=== PATIENT | female | born 2000 | race Caucasian/White ===

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

== ENCOUNTER 2022-04-30 12:34 | Emergency (ER) | payer MEDICAID, SELFPAY ==
[2022-04-30 12:50] VITALS: BP 139/54; PULSE 83; RESP 18; TEMP 36.6; O2SAT 98
[2022-04-30 13:51] LABS: Bilirubin Negative (Negative); Blood Trace-intact (Negative); Clarity Sl Cloudy (Clear); Glucose Negative (Negative); Ketones 15 mg/dL (Negative); Leukocyte Esterase Moderate (Negative); Nitrite Negative (Negative); Specific Gravity >= 1.030 (1.005-1.025); Urobilinogen 0.2 EU/dL (Up TO 0.2); pH 5.5 (5-8)
[2022-04-30 14:02] LABS: Bacteria Moderate HPF (Negative); C & S Indicated? No/Sq. Contamination; Casts 0-2 Hyaline LPF (Negative); Crystals Negative HPF (Negative); Epithelial Cells Many HPF (Negative); Mucus Negative (Negative); RBC 0-2 HPF (0-2); WBC >50 HPF (0-5)
[2022-04-30 14:13] LABS: Abs Immature Grans 0.08 10^3/uL (0.0-0.06); Absolute Basophil Count 0.05 10^3/uL (0.0-0.2); Absolute Eosinophil Count 0.08 10^3/uL (0.0-0.7); Basophils % 0.3; Eosinophils % 0.5; HCT 36.2 % (36.0-46.0); Immature Grans % 0.5; Lymphocytes % 10.4; MCH 27.6 pg (27.0-33.0); MCHC 33.1 % (32.0-36.0); MCV 83 fL (80-95); MPV 11.5 fL (8.0-11.0); Monocytes % 4.5; Neutrophils % 83.8; Platelet Count 238 10^3/uL (130-400); RBC 4.35 10^6/uL (3.93-5.22); RDW 13.2 % (11.7-14.6); RDW-SD 39.8 fL; WBC 15.23 10^3/uL (4.4-10.8)
[2022-04-30 14:15] LABS: Absolute Lymphocyte Count 1.58 10^3/uL (1.2-3.4); Absolute Monocyte Count 0.69 10^3/uL (0.1-0.8); Absolute Neutrophil Count 12.76 10^3/uL (1.2-6.7)
--- NOTE | 2022-04-30 14:17 | W.ED.GENAD ---
Discharge Plan Discharge Details Chief Complaint: Abd Prob Primary Care Provider: Unknown,Unknown ED Provider: Harry Clemens Home Meds and New Rx's Prescriptions: No Action No Known Home Meds Medical Decision Making 21-year-old female, denies significant past medical history, approximate 11 weeks, presents to the ER for 2-day history of right lower quadrant pain worsening nausea and vomiting. Clinically she appears well, nontoxic, is afebrile. Patient saw her distribution a class lineman today and was told that her appears to be going well based upon the appointment today and recommended getting the right lower quadrant pain evaluated elsewhere. Plan to obtain IV access, obtain routine screening laboratory values, quantitative hCG. Laboratory values reveal leukocytosis of 15.23, leukocytosis can certainly be present in but obviously cannot rule out infectious process. Sodium 135, potassium 3.7, creatinine 0.9 with a GFR of 94.44. ALT 91, LFTs otherwise unremarkable hCG quantitative pending Urinalysis reveals 15 ketones, will provide IV fluid. Negative nitrate. Leuk esterase moderate. Greater than 50 white cells. Many epithelial cells, moderate bacteria. Culture not indicated because of contamination. Plan to obtain repeat urine sample. Concern for contamination versus infection. Plan to obtain an ultrasound OB first trimester as well as a right lower quadrant for further evaluation of possible appendicitis. hCG is 81,387 which would be appropriate for her estimated 11 weeks. At the time of signout to GAMALIEL Sexton, awaiting repeat urinalysis, OB ultrasound first trimester, ultrasound right lower quadrant for right lower quadrant pain, nausea, vomiting, leukocytosis. This documentation was generated using Re[employer]ise dictation system, please disregard any oddities of phrase or misspellings. Lab Data Lab results reviewed: Yes I reviewed the patient's lab results. Labs: Laboratory Tests Range/Units 04/30/22 04/30/22 04/30/22 13:35 13:50 13:50 WBC (4.4-10.8) 10^3/uL 15.23 H RBC (3.93-5.22) 10^6/uL 4.35 Hgb (11.2-15.7) g/dL 12.0 Hct (36.0-46.0) % 36.2 MCV (80-95) fL 83 MCH (27.0-33.0) pg 27.6 MCHC (32.0-36.0) % 33.1 RDW (11.7-14.6) % 13.2 Plt Count (130-400) 10^3/uL 238 MPV (8.0-11.0) fL 11.5 H Immature Gran % 0.5 Neutrophils % 83.8 Lymphocytes % 10.4 Monocytes % 4.5 Eosinophils % 0.5 Basophils % 0.3 Nucleated RBC % (0.0-0.3) % 0.0 Absolute Neutrophils (1.2-6.7) 10^3/uL 12.76 H Absolute Lymphocytes (1.2-3.4) 10^3/uL 1.58 Absolute Monocytes (0.1-0.8) 10^3/uL 0.69 Absolute Eosinophils (0.0-0.7) 10^3/uL 0.08 Absolute Basophils (0.0-0.2) 10^3/uL 0.05 Sodium (136-145) mmol/L 135 L Potassium (3.5-5.1) mmol/L 3.7 Chloride (98-107) mmol/L 99 Carbon Dioxide (21.0-32.0) mmol/L 24.7 Anion Gap (3-11) mmol/L 11.3 H BUN (7-18) mg/dL 9 Creatinine (0.55-1.02) mg/dL 0.9 Est GFR (CKD-EPI 2020) (mL/min/1.73m2) 94.44 Glucose (74-106) mg/dL 86 Calcium (8.5-10.1) mg/dL 9.5 Total Bilirubin (0.2-1.0) mg/dL 0.3 AST (15-37) U/L 31 ALT (14-59) U/L 91 H Alkaline Phosphatase (46-116) U/L 57 Total Protein (6.4-8.2) g/dL 8.0 Albumin (3.4-5.0) g/dL 3.8 Lipase (73-393) U/L 138 Beta HCG, Quant (1-3) mIU/mL 09560 H Urine Color (Yellow) Yellow Urine Clarity (Clear) Sl Cloudy Urine pH (5-8) 5.5 Ur Specific [place] (1.005-1.025) >= 1.030 H Urine Protein (Negative) mg/dL 30 H Urine Ketones (Negative) mg/dL 15 H Urine Blood (Negative) Trace-intact H Urine Nitrite (Negative) Negative Urine Bilirubin (Negative) Negative Urine Urobilinogen (Up TO 0.2) EU/dL 0.2 Ur Leukocyte Esterase (Negative) Moderate H Urine RBC (0-2) HPF 0-2 Urine WBC (0-5) HPF >50 H Ur Epithelial Cells (Negative) HPF Many Urine Crystals (Negative) HPF Negative Urine Bacteria (Negative) HPF Moderate Urine Casts (Negative) LPF 0-2 Hyaline Urine Mucus (Negative) Negative Ur Culture Indicated? No/Sq. Contamination Urine Glucose (Negative) mg/dL Negative HPI General Mode of arrival: ambulatory. Date/Time Provider Initiated Documentation: 04/30/22 13:46. Limitations to Documentation: no limitations. Information obtained by: patient and family. HPI Narrative: This is a 21-year-old female, denies significant past medical history or prior abdominal surgeries, at 11 weeks presents reporting a 2-day history of right lower quadrant pain and slight increased nausea and vomiting. 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 Reports her pain is moderate, nothing makes it worse or better. She reports baseline nausea, vomiting, low back pain in , reports her back pain is unchanged but may be slightly worse nausea and vomiting. Denies fever, chest pain, shortness of breath, vaginal bleeding or discharge, dysuria, hematuria, frequency, diarrhea or constipation. Related Data Home Medications Medication Instructions Recorded Confirmed Unknown [No Known Home Meds] 04/30/22 04/30/22 Allergies Allergy/AdvReac Type Severity Reaction Status Date / Time No Known Allergies Allergy Unverified 04/30/22 15:09 General Stated Complaint: Abd Prob MU: 3 Review of Systems Constitutional Constitutional: Denies fever(s) and Denies weakness Cardiovascular Cardiovascular: Denies chest pain and Denies dyspnea Respiratory Respiratory: Denies cough and Denies dyspnea Gastrointestinal Gastrointestinal: Reports abdominal pain, Denies constipation, Denies diarrhea, Reports nausea and Reports vomiting Genitourinary Genitourinary: Denies hematuria, Denies dysuria and Denies vaginal discharge Musculoskeletal Musculoskeletal: Reports back pain Integumentary/Breasts Skin/Breast: Denies rash Neurologic Neurologic: Denies weakness [facility] Social History Smoking/Tobacco Use Status: Never Smoking risk assessment performed?: Yes Alcohol Intake: never Substance use type: does not use Do you feel safe at home: Yes Do you feel safe in your relationship?: Yes Exam Const General: cooperative, healthy appearing, comfortable and no acute distress Orientation: alert and awake [facility] Head: normal to inspection, normocephalic and atraumatic Face and sinus: normal facial exam Mouth: moist mucous membranes Eyes Conjunctivae: conjunctivae normal Neck Neck: normal visual inspection, full ROM, no meningeal signs, trachea midline and supple Resp Effort & Inspection: normal respiratory effort and able to speak in complete sentences Auscultation: clear to auscultation bilaterally Cardio Rate: regular rate Rhythm: regular rhythm GI Palpation: soft, not firm, no guarding, no pulsatile masses and tender in the RLQ; not at McBurney's point and with no rebound tenderness Other: Consistence with approximate 11 weeks Back/Spine/Pelvis Back: no CVA tenderness and No back tenderness Skin General skin exam: no rashes or lesions noted Neuro General: patient alert, patient awake, moves all extremities and no focal motor deficits Cognition: normal cognition Speech: speech normal Gait: normal gait Sensory Exam: no sensory deficits noted Extrem General: normal to inspection, full ROM and capillary refill normal Psych Appearance: grossly normal Mental Status: mental status grossly normal Course Vital Signs Vital signs: Vital Signs Temperature 36.6 C 04/30/22 12:50 Pulse 83 04/30/22 12:50 Respiratory Rate 18 04/30/22 12:50 Blood Pressure 139/54 L 04/30/22 12:50 Pulse Oximetry 98 04/30/22 12:50 Temperature 36.6 C 04/30/22 12:50 Temperature Source Oral 04/30/22 12:50 Pulse 83 04/30/22 12:50 Respiratory Rate 18 04/30/22 12:50 Respiratory Effort 04/30/22 12:57 Blood Pressure 139/54 L 04/30/22 12:50 Blood Pressure Position Sitting 04/30/22 12:50 Pulse Oximetry 98 04/30/22 12:50 Oxygen Delivery Method Room Air 04/30/22 12:50 Oxygen Flow Rate 0 04/30/22 12:50 Pain Level 5 04/30/22 12:50 Lab/Test Results Lab/Test Results: Laboratory Tests Range/Units 04/30/22 04/30/22 13:35 13:50 WBC (4.4-10.8) 10^3/uL 15.23 H RBC (3.93-5.22) 10^6/uL 4.35 Hgb (11.2-15.7) g/dL 12.0 Hct (36.0-46.0) % 36.2 MCV (80-95) fL 83 MCH (27.0-33.0) pg 27.6 MCHC (32.0-36.0) % 33.1 RDW (11.7-14.6) % 13.2 Plt Count (130-400) 10^3/uL 238 MPV (8.0-11.0) fL 11.5 H Immature Gran % 0.5 Neutrophils % 83.8 Lymphocytes % 10.4 Monocytes % 4.5 Eosinophils % 0.5 Basophils % 0.3 Nucleated RBC % (0.0-0.3) % 0.0 Absolute Neutrophils (1.2-6.7) 10^3/uL 12.76 H Absolute Lymphocytes (1.2-3.4) 10^3/uL 1.58 Absolute Monocytes (0.1-0.8) 10^3/uL 0.69 Absolute Eosinophils (0.0-0.7) 10^3/uL 0.08 Absolute Basophils (0.0-0.2) 10^3/uL 0.05 Urine Color (Yellow) Yellow Urine Clarity (Clear) Sl Cloudy Urine pH (5-8) 5.5 Ur Specific [place] (1.005-1.025) >= 1.030 H Urine Protein (Negative) mg/dL 30 H Urine Ketones (Negative) mg/dL 15 H Urine Blood (Negative) Trace-intact H Urine Nitrite (Negative) Negative Urine Bilirubin (Negative) Negative Urine Urobilinogen (Up TO 0.2) EU/dL 0.2 Ur Leukocyte Esterase (Negative) Moderate H Urine RBC (0-2) HPF 0-2 Urine WBC (0-5) HPF >50 H Ur Epithelial Cells (Negative) HPF Many Urine Crystals (Negative) HPF Negative Urine Bacteria (Negative) HPF Moderate Urine Casts (Negative) LPF 0-2 Hyaline Urine Mucus (Negative) Negative Ur Culture Indicated? No/Sq. Contamination Urine Glucose (Negative) mg/dL Negative
[2022-04-30 14:40] LABS: ALT 91 U/L (14-59); AST 31 U/L (15-37); Albumin 3.8 g/dL (3.4-5.0); Alkaline Phosphatase 57 U/L (46-116); Anion Gap 11.3 mmol/L (3-11); BUN 9 mg/dL (7-18); Bilirubin, Total 0.3 mg/dL (0.2-1.0); CO2 24.7 mmol/L (21.0-32.0); CREATININE 0.9 mg/dL (0.55-1.02); Calcium 9.5 mg/dL (8.5-10.1); Chloride 99 mmol/L (98-107); Estimated GFR 94.44 (mL/min/1.73m2); Glucose 86 mg/dL (74-106); Lipase 138 U/L (73-393); Potassium 3.7 mmol/L (3.5-5.1); Sodium 135 mmol/L (136-145)
--- NOTE | 2022-04-30 14:45 | DI.US_ITS ---
Exam(s) US ABDOMEN LIMITED EXAM: US ABDOMEN LIMITED CLINICAL HISTORY: RLQ pain TECHNIQUE: Limited ultrasound abdomen performed using standard protocol. COMPARISON: No exams were available for comparison FINDINGS: The right lower quadrant was evaluated sonographically. No sonographic evidence of an appendicitis i s seen. No free fluid is seen in the right lower quadrant. IMPRESSION: No sonographic evidence of an appendicitis. DATA REPOSITORY:
--- NOTE | 2022-04-30 14:45 | DI.US_ITS ---
Exam(s) US OB 1ST TRIMESTER EXAM: US OB 1ST TRIMESTER CLINICAL HISTORY: abd pain. COMPARISON: No exams were available for comparison TECHNIQUE: Transabdominal first trimester obstetrical ultrasound performed. FINDINGS: There is a single intrauterine gestation. Estimated gestational age based on crown-rump length is 11 weeks 6 days. heart rate is 171 beats per minute. movement was detected. Estimated da te of delivery by ultrasound is 11/13/2022. There is a small subchorionic hemorrhage seen measuring 2 .0 x 1.9 x 1.1 cm. Pelvic Measurments Uterus: 10 x 7.7 x 8.2 cm Rt Ovary: 3.3 x 2.1 x 2.3 cm Lt Ovary: 3.3 x 1.7 x 2.5 cm IMPRESSION: Single living intrauterine gestation. DATA REPOSITORY:
[2022-04-30] MEDS: Normal Saline 1,000 ML 1000 ML IV (15:04)
[2022-04-30 15:46] VITALS: BP 102/63; PULSE 80; RESP 15; O2SAT 98
[2022-04-30 16:32] LABS: Bilirubin Negative (Negative); Blood Negative (Negative); Clarity Sl Cloudy (Clear); Glucose Negative (Negative); Ketones 80 mg/dL (Negative); Leukocyte Esterase Trace (Negative); Nitrite Negative (Negative); Urobilinogen 0.2 EU/dL (Up TO 0.2); pH 5.5 (5-8)
--- NOTE | 2022-04-30 16:39 | W.EDPROG ---
Date of service: 04/30/22 Time of Service: 16:39 Medical Decision Making Care assumed from provider (MARY To) Please see their initial HPI, PE, and documentation. Discussed patient details and case and pending workup and disposition. Patient is hemodynamically stable, and alert and oriented. Discussed results of ultrasound with patient and family who verbalized understanding. At this time we are awaiting repeat urinalysis. Repeat urinalysis shows trace leukocytes with many epithelial squamous contamination however I will place patient on antibiotics for possible probable UTI to treat empirically. Urine culture added onto lab. Discussed home care and strict return instructions with patient and family they verbalized understanding. Patient hemodynamically stable. This text was generated using Department of Health and Human Servicesation system, please disregard any oddities of phrase or misspellings. Imaging Data Radiologic Study: Imaging: Ultrasound Radiologist's impression: EXAM:? US OB 1ST TRIMESTER CLINICAL HISTORY: ? abd pain.? COMPARISON:? No exams were available for comparison? TECHNIQUE:? Transabdominal first trimester obstetrical ultrasound performed. FINDINGS: There is a single intrauterine gestation.? Estimated gestational age based on crown-rump length is 11 weeks 6 days.? heart rate is 171 beats per minute.? movement was detected.? Estimated date of delivery by ultrasound is 11/13/2022.? There is a small subchorionic hemorrhage seen measuring 2.0 x 1.9 x 1.1 cm. Pelvic Measurments Uterus: 10 x 7.7 x 8.2 cm Rt Ovary: 3.3 x 2.1 x 2.3 cm Lt Ovary: 3.3 x 1.7 x 2.5 cm IMPRESSION: Single living intrauterine gestation.? Radiologic Study #2: Imaging: Ultrasound Radiologist's impression: EXAM:? US ABDOMEN LIMITED CLINICAL HISTORY:? RLQ pain TECHNIQUE:? Limited ultrasound abdomen performed using standard protocol. COMPARISON:? No exams were available for comparison FINDINGS: The right lower quadrant was evaluated sonographically.? No sonographic evidence of an appendicitis is seen.? No free fluid is seen in the right lower quadrant. IMPRESSION: No sonographic evidence of an appendicitis.? Sign Out Sign Out Data: Sign Out Comment: G1, P0 approximately 11 weeks , presenting for right lower quadrant pain x2 days. Laboratory values reveal leukocytosis. Initial urinalysis reveals greater than 50 white cells but contaminated, denies any dysuria or hematuria. Awaiting repeat urinalysis, ultrasound of right lower quadrant as well as they will be first trimester. Last updated by Harry Clemens PA at 04/30/22 15:39 Discharge Plan Disposition Patient Disposition: Home Condition: Stable Discharge Details Clinical Impression: UTI (urinary tract infection) in in first trimester, Abdominal pain during Primary Care Provider: Unknown,Unknown ED Provider: Shaniqua Sexton Home Meds and New Rx's Prescriptions: New cephalexin 500 mg tablet 500 mg PO BID 7 Days Qty: 14 0RF Discharge Instructions Instructions: Urinary Tract Infection in Women (ED), Abdominal Pain (ED) Additional Instructions: Please take the antibiotics as directed with food, yogurt or probiotic. Please follow-up with your CAREER DEVELOPER as previously scheduled. Sooner if you have any worsening pain, vaginal bleeding vaginal discharge or any concerns. The ultrasound shows estimated date of confinement at November 13, 2022. 11 weeks 6 days. No evidence of appendicitis on the ultrasound here today. However if you have worsening pain or feel sicker at any time with fever chills or concerns please return to the ER or be seen at [facility] with your CAREER DEVELOPER if needed. You may take Tylenol with food every 4-6 hours as needed for pain and swelling. Referrals: [facility] [Outside] - 1 week (OBGYN) Discharge Data Discharge Date/Time-TO BE ENTERED AT DEPARTURE: 04/30/22 17:43
[2022-04-30 16:40] LABS: Bacteria Few HPF (Negative); Epithelial Cells Many HPF (Negative); RBC 0-2 HPF (0-2)
[2022-04-30 16:41] LABS: C & S Indicated? No/Sq. Contamination; Casts Negative LPF (Negative); Crystals Negative HPF (Negative); Mucus Negative (Negative)
[2022-04-30] MEDS: Cephalexin 500 MG CAP, 2 CAPS/BTL PO (16:48)
[2022-04-30] MEDS: Cephalexin 500 MG CAP PO (16:48)
[2022-04-30 17:33] VITALS: BP 125/60; PULSE 86; RESP 19; TEMP 37; O2SAT 98
== END 2022-04-30 17:43 | disposition home or self-care (01) ==
PROVIDERS: Physician Assistant; Student in an Organized Health Care Education/Training Program; Emergency Provider Registered Nurse Emergency
DX: O23.41 Unspecified infection of urinary tract in pregnancy, first trimester (principal); N39.0 Urinary tract infection, site not specified; O99.111 Other diseases of the blood and blood-forming organs and certain disorders involving the immune mechanism complicating pregnancy, first trimester; D72.829 Elevated white blood cell count, unspecified; Z3A.11 11 weeks gestation of pregnancy
CPT/HCPCS: 36415; 80053; 81025; 83690; 96360; 99284; 76705; 76801; 81003; 81015; 84702; 85025; 87086; J3490

== ENCOUNTER 2022-07-21 03:07 | Outpatient (CLI) | payer MEDICAID, SELFPAY ==
[2022-07-21 07:48] LABS: Bilirubin Negative (Negative); Blood Negative (Negative); Clarity Clear (Clear); Glucose Negative (Negative); Ketones Negative (Negative); Leukocyte Esterase Small (Negative); Nitrite Negative (Negative); Specific Gravity >= 1.030 (1.005-1.025); Urobilinogen 0.2 mg/dL (Up to 0.2)
[2022-07-21 07:56] LABS: Bacteria Few HPF (Negative); C & S Indicated? C&S Done As Ordered; Casts Negative LPF (Negative); Crystals Negative HPF (Negative); Epithelial Cells Moderate HPF (Negative); Mucus Trace (Negative); RBC Negative HPF (0-2)
[2022-07-21 09:23] LABS: ALT 28 U/L (14-59); AST 13 U/L (15-37); CREATININE 0.8 mg/dL (0.55-1.02); Estimated GFR 108.11 (mL/min/1.73m2)
== END 2022-07-21 03:08 | disposition home or self-care (01) ==
PROVIDERS: Visit Provider Midwife
DX: R94.4 Abnormal results of kidney function studies (principal); R94.5 Abnormal results of liver function studies; R82.90 Unspecified abnormal findings in urine; Z34.80 Encounter for supervision of other normal pregnancy, unspecified trimester; Z3A.20 20 weeks gestation of pregnancy
CPT/HCPCS: 36415; 81003; 81015; 82565; 84450; 84460; 87086

== ENCOUNTER 2022-09-15 02:39 | Outpatient (CLI) | payer MEDICAID, SELFPAY ==
--- NOTE | 2022-09-15 | DI.US_ITS ---
Exam(s) US OB CAROL WEIGHT EXAM: US OB CAROL WEIGHT CLINICAL HISTORY: GROWTH SCAN, SUSPECT GESTATIONAL DIABETES. TECHNIQUE: Transabdominal obstetrical ultrasound was performed. COMPARISON: US US ABDOMEN LIMITED from 04/30/2022 FINDINGS: There is a single viable intrauterine gestation with cardiac activity identified-135 bpm The fetus is presently in cephalic position . Amniotic fluid: There is a normal amount of amniotic fluid with an CAROL of 16.32cm. Placental location: The placenta is anterior grade 1,with no evidence of placenta previa. Dating parameters place this at approximately 31 weeks and 3 days gestational age, implying MOLINA of November 14, 2022. BPD measures 31 weeks and 4 days HC measures 32 weeks and 2 days AC measures 31 weeks and 2 days FL measures 30 weeks and 3 days Estimated weight is 1705 gm-3 pounds 12 ounces Fetus is at the 25th percentile on the Hadlock scale. IMPRESSION:: Viable 3rd trimester gestation, as described above. DATA REPOSITORY:
== END 2022-09-15 02:59 ==
PROVIDERS: Visit Provider Midwife
DX: Z36.9 Encounter for antenatal screening, unspecified
CPT/HCPCS: 76816

== ENCOUNTER 2022-11-02 01:16 | Outpatient (CLI) | payer MEDICAID, SELFPAY ==
--- NOTE | 2022-11-02 | DI.US_ITS ---
Exam(s) US OB F/U FACIAL/LVOT/RVOT EXAM: US OB F/U FACIAL/LVOT/RVOT CLINICAL HISTORY: POSITION CHECK, ? BREECH PRESENTATION. COMPARISON: US US OB CAROL WEIGHT from 09/15/2022 TECHNIQUE: Transabdominal obstetrical ultrasound performed. FINDINGS: Sonographic images demonstrate a single intrauterine gestation in cephalic position. spine pro jecting anterior and toward the maternal right. heart rate motion is Dopplered at: 140 bpm. Placenta: Anterior, grade 2. Amniotic fluid : Amount of fluid is within visually normal limits. IMPRESSION: Fetus is in cephalic position. DATA REPOSITORY:
--- OUTSIDE RECORDS SUMMARY | 2022-11-02 01:19 | XMS_ITS | Continuity of Care Document ---
Author Name Unknown Organization [facility] Address [address] [place] [address] Care Team Providers Care Household Personal Assistant Name Role Phone Viky Dunlap Primary Care Physician Encounter NCTY_OR Date(s): 10/26/22 - 10/26/22 [facility] [address] [place] [address] Discharge Disposition: Home or Self Care Attending Physician: Viky Dunlap CNM Admitting Physician: Viky Dunlap CNM Referring Physician: Viky Dunlap CNM Results Laboratory List Name Date Automated Diff 10/26/22 CBC w/ Diff 10/26/22 Ferritin 10/26/22 Most recent to oldest [Reference Range]: 1 WBC [5.0-10.0 x10^3/mcL] 9.5 x10^3/mcL (10/26/22 12:40 PM) RBC [4.1-5.3 x10^6/mcL] 4.0 x10^6/mcL *LOW* (10/26/22 12:40 PM) Neutro Auto [40.0-75.0 %] 78.4 % *HI* (10/26/22 12:40 PM) Lymph Auto [20.0-50.0 %] 12.2 % *LOW* (10/26/22 12:40 PM) Gulf Auto [2.0-15.0 %] 7.1 % (10/26/22 12:40 PM) Basophil Auto [0.0-1.0 %] 0.3 % (10/26/22 12:40 PM) MCV [80.0-96.0 fL] 86.6 fL (10/26/22 12:40 PM) MCHC [31.0-35.0 g/dL] 32.7 g/dL (10/26/22 12:40 PM) Hct [37.0-47.0 %] 34.9 % *LOW* (10/26/22 12:40 PM) MCH [26.0-32.0 pg] 28.3 pg (10/26/22 12:40 PM) Neutro Absolute 7.4 x10^3/mcL *NA* (10/26/22 12:40 PM) Hgb [12.0-16.0 g/dL] 11.4 g/dL *LOW* (10/26/22 12:40 PM) Ferritin Level [8-252 ng/mL] 27 ng/mL (10/26/22 12:40 PM) Platelets [130-450 x10^3/mcL] 211 x10^3/ mcL (10/26/22 12:40 PM) RDW-CV [11.5-14.5 %] 13.6 % (10/26/22 12:40 PM) Imm Gran Auto [0.0-0.9 %] 1.5 % *HI* (10/26/22 12:40 PM) Eos, Auto [1.0-6.0 %] 0.5 % *LOW* (10/26/22 12:40 PM) Patient Care team information Care Team Personnel Name: Viky Dunlap CNM Position: No Access Member Role: Primary Care Physician Address: Address: [facility] [place] [address]- [place]
--- OUTSIDE RECORDS SUMMARY | 2022-11-02 01:19 | XMS_ITS | Continuity of Care Document ---
Author Name Unknown Organization [facility] Address [address] [place] [address] Care Team Providers Care Treating Plant Supervisor Name Role Phone Viky Dunlap Primary Care Physician [phone] Encounter NCTY_[facility] Date(s): 06/01/22 - 06/01/22 [facility] [address] [place] [address] Discharge Disposition: Home or Self Care Attending Physician: Viky Dunlap CNM Admitting Physician: Viky Dunlap CNM Referring Physician: Viky Dunlap CNM Assessment and Plan Diagnostic Tests Pending * Syphilis Serology [facility] 06/01/22 * Rubella IgG Antibody [facility] 06/01/22 Results Laboratory List Name Date Antibody Screen Gel 06/01/22 .Manual Differential ([facility]CTY) 06/01/22 ABO/Rh 06/01/22 CBC w/ Diff 06/01/22 Hepatitis B Surface Antigen [facility] 06/01/22 Thyroid Antibodies [facility] 06/01/22 Thyroid Stimulating Hormone 06/01/22 Urinalysis Microscopic 06/01/22 Urinalysis with Microscopic 06/01/22 Most recent to oldest [Reference Range]: 1 WBC [5.0-10.0 x10^3/mcL] 11.6 x10^3/mcL *HI* (06/01/22 3:54 PM) RBC [4.1-5.3 x10^6/mcL] 4.1 x10^6/mcL (06/01/22 3:54 PM) Segs Man [40-75 %] 83 % *HI* (06/01/22 3:54 PM) Lymph Man [20-50 %] 10 % *LOW* (06/01/22 3:54 PM) Shannon Man 5 % *NA* (06/01/22 3:54 PM) Eos Man 1 % *NA* (06/01/22 3:54 PM) UA Color Pale Yellow (06/01/22 3:54 PM) UA WBC [0-3] 0-3 (06/01/22 3:54 PM) ABO/Rh Type A POS *Unknown* (06/01/22 3:54 PM) Acanthocyte Rare (06/01/22 3:54 PM) MCV [80.0-96.0] 85.4 (06/01/22 3:54 PM) UA Urobilinogen Normal (06/01/22 3:54 PM) RBC Morph Abnormal (06/01/22 3:54 PM) UA Bili [Negative] Negative (06/01/22 3:54 PM) UA Ketones Negative (06/01/22 3:54 PM) MCHC [31.0-35.0 g/dL] 32.8 g/dL (06/01/22 3:54 PM) Baso Stippling RBC Rare (06/01/22 3:54 PM) UA RBC [0-2] 0-2 (06/01/22 3:54 PM) UA Leuk Est Trace *ABN* (06/01/22 3:54 PM) UA Nitrite Negative (06/01/22 3:54 PM) UA Glucose [Negative] Negative (06/01/22 3:54 PM) Hct [37.0-47.0 %] 35.1 % *LOW* (06/01/22 3:54 PM) UA Bacteria Rare /HPF (06/01/22 3:54 PM) UA Protein Negative (06/01/22 3:54 PM) Poik Rare (06/01/22 3:54 PM) MCH [26.0-32.0 pg] 28.0 pg (06/01/22 3:54 PM) Hgb [12.0-16.0 g/dL] 11.5 g/dL *LOW* (06/01/22 3:54 PM) UA Blood Negative (06/01/22 3:54 PM) UA Mucous None Seen /HPF (06/01/22 3:54 PM) Band Man [0-5 %] 1 % (06/01/22 3:54 PM) UA Spec Grav 1.010 *NA* (06/01/22 3:54 PM) Polychrom Rare (06/01/22 3:54 PM) Platelets [130-450 x10^3/mcL] 248 x10^3/ mcL (06/01/22 3:54 PM) UA Squam Epithelial [None Seen] None See n (06/01/22 3:54 PM) TSH [0.358-3.740 mcIntlUnit/mL] 0.950 mc IntlUnit/mL (06/01/22 3:54 PM) UA pH 6.0 *NA* (06/01/22 3:54 PM) UA Appear Clear (06/01/22 3:54 PM) RDW-CV [11.7-17.0 %] 13.8 % (06/01/22 3:54 PM) Jacobo Cells Rare (06/01/22 3:54 PM) UA Culture Ind?. Not Applicable (06/01/22 3:54 PM) Abs Neut Man 9.7 x10^3/mcL *NA* (06/01/22 3:54 PM) Antibody Screen Gel Negative ABSC (06/01/22 4:36 PM) Anti-Thyroglobulin [facility] [<=60 unit/mL] <1 5 unit/mL *NA* (06/01/22 3:54 PM) Thyroperoxidase Ab [facility] [<=60 unit/mL] 40 unit/mL 1 *NA* (06/01/22 3:54 PM) Hep B Surface Ag [facility] [Negative] Negative 2 *NA* (06/01/22 3:54 PM) Baso Man [0-1 %] 0 % (06/01/22 3:54 PM) 1Result Comment: [place] [address] 2Result Comment: Test [place] [address] Orders for Microbiology Reports Name Date Urine Culture 06/01/22 Microbiology Reports TEST:Urine Culture STATUS:Order in Progress BODY SITE: SOURCE:Urine, Clean Catch COLLECTED DATE/TIME:06/01/22 3:41 PM PRELIMINARY REPORT 10,000 - 100,000 cfu/ml Mixed Gram Positive Amy Patient Care team information Care Team Personnel Name: Viky Dunlap CNM Position: No Access Member Role: Primary Care Physician Address: Address: [facility] [place] [address]- [place]
== END 2022-11-02 01:36 ==
LOC: DI 01:17
PROVIDERS: Visit Provider Midwife
DX: O32.1XX1 Maternal care for breech presentation, fetus 1 (principal)
CPT/HCPCS: 76815

== ENCOUNTER 2022-11-16 13:54 | Outpatient (CLI) | payer MEDICAID, SELFPAY ==
[2022-11-16 15:00] VITALS: BP 116/69; PULSE 85
[2022-11-16 15:28] VITALS: BP 116/69; PULSE 85; TEMP 36.8
--- NOTE | 2022-11-16 16:57 | W.OBNST ---
Date of service: 11/16/22 Time of Service: 16:58 NST Evaluation Reason for NST Reasons for Nonstress Test: OTHER, SEE COMMENT Reason for NST Other: refered by home actuarial intern Gestational Age Gestational Age in Weeks and Days: 40 Weeks and 3Days Test and Monitor Explained Test/Monitor Explained: Test Explained, Monitor Explained and Patient Verbalized Understanding Vital Signs Blood Pressure: 116/69 Pulse: 85 Temperature: 98.2 F NST Information Date on Monitor: 11/16/22 Time on Monitor: 15:00 Date off Monitor: 11/16/22 Time off Monitor: 16:00 Total Time on Monitor: 60 NST Interventions: PO Hydration Contraction Frequency: q7-9 Comments: pt does not appreciate contractions NST Evaluation Patient States Movement: Present FHR Baseline: 130 Variability: Moderate 6-25 bpm Accelerations: 15x15 Decelerations: None NST Results: Reactive Note Ultrasound Done: N/A. NST Note Note: hiccups continued throughout NST period No PAC's or other FHT arrhythmia was heard or detected during EFM Report on phone given to LM Abdulaziz) records received, will scan into EMR Pt to f/up with her midwives. NST Reviewed and Verified by: Zakia Knowles
[2022-11-16 17:00] VITALS: BP 116/69; PULSE 85; TEMP 36.8
== END 2022-11-16 16:05 | disposition home or self-care (01) ==
LOC: BCD 13:55 → OBS 14:52
PROVIDERS: Visit Provider Advanced Practice Midwife
DX: O36.93X1 Maternal care for fetal problem, unspecified, third trimester, fetus 1 (principal); Z3A.40 40 weeks gestation of pregnancy
CPT/HCPCS: 59025

== ENCOUNTER 2022-12-31 03:33 | Outpatient (CLI) | payer MEDICAID, SELFPAY ==
[2022-12-31 14:20] LABS: Abs Immature Grans 0.02 10^3/uL (0.0-0.06); Absolute Basophil Count 0.05 10^3/uL (0.0-0.2); Absolute Eosinophil Count 0.23 10^3/uL (0.0-0.7); Absolute Lymphocyte Count 1.61 10^3/uL (1.2-3.4); Absolute Monocyte Count 0.51 10^3/uL (0.1-0.8); Absolute Neutrophil Count 5.08 10^3/uL (1.2-6.7); Basophils % 0.7; Eosinophils % 3.1; HCT 40.9 % (36.0-46.0); HGB 13.1 g/dL (11.2-15.7); Immature Grans % 0.3; Lymphocytes % 21.5; MCH 27.2 pg (27.0-33.0); MCV 85 fL (80-95); MPV 11.7 fL (8.0-11.0); Monocytes % 6.8; Neutrophils % 67.6; Platelet Count 296 10^3/uL (130-400); RBC 4.81 10^6/uL (3.93-5.22); RDW 12.7 % (11.7-14.6); RDW-SD 39.5 fL
[2022-12-31 14:50] LABS: Iron 53 ug/dL (50-170)
[2022-12-31 15:17] LABS: Ferritin 29 ng/mL (8-252); Vitamin B12 1091 pg/mL (193-986)
[2022-12-31 15:30] LABS: Vitamin D 25 Total 18.9 ng/mL (30-100)
== END 2022-12-31 03:34 | disposition home or self-care (01) ==
LOC: LBO 03:33
PROVIDERS: Visit Provider Naturopath
DX: D50.9 Iron deficiency anemia, unspecified (principal); F41.8 Other specified anxiety disorders; G43.009 Migraine without aura, not intractable, without status migrainosus; E55.9 Vitamin D deficiency, unspecified; R42 Dizziness and giddiness
CPT/HCPCS: 36415; 82306; 82607; 82728; 83540; 85025

== ENCOUNTER 2023-05-31 03:33 | Outpatient (CLI) | payer MEDICAID, SELFPAY ==
[2023-05-31 14:27] LABS: Bilirubin Negative (Negative); Blood Negative (Negative); Clarity Clear (Clear); Glucose Negative (Negative); Ketones Negative (Negative); Leukocyte Esterase Negative (Negative); Nitrite Negative (Negative); Specific Gravity <= 1.005 (1.005-1.025); Urobilinogen 0.2 mg/dL (Up to 0.2)
[2023-05-31 14:35] LABS: Hemoglobin A1C 5.3 % (<5.7)
[2023-05-31 15:12] LABS: ALT 28 U/L (14-59); AST 8 U/L (15-37); Albumin 4.1 g/dL (3.4-5.0); Alkaline Phosphatase 101 U/L (46-116); Anion Gap 12.2 mmol/L (3-11); BUN 12 mg/dL (7-18); Bilirubin, Total 0.2 mg/dL (0.2-1.0); CO2 24.8 mmol/L (21.0-32.0); CREATININE 0.8 mg/dL (0.55-1.02); Calcium 9.8 mg/dL (8.5-10.1); Calculated LDL 87 mg/dL (<100); Chloride 103 mmol/L (98-107); Cholesterol 178 mg/dL (<200); Estimated GFR 107.44 (mL/min/1.73m2); Glucose 101 mg/dL (74-106); HDL Cholesterol 68 mg/dL (40-60); Potassium 3.6 mmol/L (3.5-5.1); Sodium 140 mmol/L (136-145); TSH 0.95 uIU/Ml (0.36-3.74); Total Protein 7.8 g/dL (6.4-8.2); Triglyceride 115 mg/dL (<150); Vitamin B12 892 pg/mL (193-986)
[2023-05-31 15:31] LABS: FREE T4 0.78 ng/dL (0.76-1.46)
[2023-05-31 15:51] LABS: Iron 43 ug/dL (50-170)
== END 2023-05-31 03:34 | disposition home or self-care (01) ==
LOC: LBO 03:33
PROVIDERS: PCP Midwife; Visit Provider Naturopath
DX: R42 Dizziness and giddiness (principal); D50.9 Iron deficiency anemia, unspecified; R06.09 Other forms of dyspnea; E55.9 Vitamin D deficiency, unspecified
CPT/HCPCS: 36415; 80053; 80061; 82306; 81003; 82607; 83036; 83540; 84439; 84443; 84481; 87086

== ENCOUNTER 2023-09-30 01:44 | Outpatient (CLI) | payer MEDICAID, SELFPAY ==
[2023-09-30 13:53] LABS: Abs Immature Grans 0.04 10^3/uL (0.0-0.06); Absolute Eosinophil Count 0.14 10^3/uL (0.0-0.7); Absolute Lymphocyte Count 2.25 10^3/uL (1.2-3.4); Absolute Monocyte Count 0.57 10^3/uL (0.1-0.8); Basophils % 0.5 %; Eosinophils % 1.3 %; HCT 41.9 % (36.0-46.0); HGB 13.6 g/dL (11.2-15.7); Immature Grans % 0.4 %; Lymphocytes % 20.4 %; MCHC 32.5 % (32.0-36.0); MCV 83 fL (80-95); Monocytes % 5.2 %; Neutrophils % 72.2 %; Platelet Count 273 10^3/uL (130-400); RBC 5.03 10^6/uL (3.93-5.22); RDW 13.8 % (11.7-14.6); WBC 11.05 10^3/uL (4.4-10.8)
[2023-09-30 13:56] LABS: Absolute Basophil Count 0.06 10^3/uL (0.0-0.2); Absolute Neutrophil Count 7.98 10^3/uL (1.2-6.7)
[2023-09-30 14:33] LABS: Iron 64 ug/dL (50-170)
[2023-09-30 14:40] LABS: Ferritin 70 ng/mL (8-252); Vitamin D 25 Total 23.6 ng/mL (30-100)
== END 2023-09-30 01:45 | disposition home or self-care (01) ==
LOC: LBO 01:44
PROVIDERS: PCP Midwife; Visit Provider Naturopath
DX: R42 Dizziness and giddiness (principal); D50.9 Iron deficiency anemia, unspecified; E55.9 Vitamin D deficiency, unspecified; R06.09 Other forms of dyspnea; R53.83 Other fatigue
CPT/HCPCS: 36415; 82306; 82728; 83540; 85025

== ENCOUNTER 2023-11-24 02:20 | Outpatient (CLI) | payer MEDICAID, SELFPAY ==
--- NOTE | 2023-11-24 | DI.US_ITS ---
Exam(s) US OB 1ST TRIMESTER EXAM: US OB 1ST TRIMESTER CLINICAL HISTORY: EARLY DATING, LMP UNKNOWN. COMPARISON: US US OB 1ST TRIMESTER from 04/30/2022 TECHNIQUE: Transabdominal Transvaginal first trimester obstetrical ultrasound performed. FINDINGS: There is a single living intrauterine gestation present. The estimated age based on crown-rump lengt h of 6.2 mm is 6 weeks 3 days. The heart rate is 117 beats per minute. motion was visua lized during the examination. The yolk sac was visualized. The uterus is retroverted. It measures 9.4 long by 4.4 AP by 6.4 transverse. The right ovary measures 3.2 x 1.6 x 2.6 cm. The right ovary is unremarkable. The left ovary measures 3.5 x 2.3 x 3.5 cm. There is a corpus luteal cyst seen on the left ovary. There is a trace amount of free fluid in the pelvis. IMPRESSION: Single live intrauterine gestation as above. Estimated gestational age is 6 weeks 3 days. Estimated date of delivery is 07/16/2024. DATA REPOSITORY:
--- OUTSIDE RECORDS SUMMARY | 2023-11-24 02:21 | XMS_ITS | Encounter Summary ---
Author Organization [facility] [place] [address] Care Team Providers Care Service Manager Name Role Phone Radu Gaona ND Primary Care Provider [phone] Encounter Details Date Type Department Care Team (Late st Contact Info) Description 08/08/2019 [place] [id number] Elda Gomez MD [facility] [address] Social History Tobacco Use Types Packs/Day Years Used Date Smoking Tobacco: Never Smokeless Tobacco: Never Alcohol Use Standard Drinks/Week Comments No 0 (1 standard drink = 0.6 oz pur e alcohol) Sex and Gender Information Value Date Recorded Sex Assigned at Not on file Gender Identity Not on file Sexual Orientation Not on file documented as of this encounter Miscellaneous Notes * Telephone Encounter - Deneen Rowe - 08/10/2019 11:26 AM EDT Spoke to pt mom, she wanted a final visit with Dr. Gomez, sched for 03/2020, she states pts vision is blurry with current contacts wanted to see KJ, scheduled 1st available 10/04/19 * Telephone Encounter - Deneen Rowe - 08/08/2019 9:46 AM EDT Left msg for parent/guardian due to public health concern 08/13/2019 w/Dr. Gomez cancelled. Left clinic # for return call to reschedule Per ems review defer out 6 mos documented in this encounter Plan of Treatment Not on file documented as of this encounter Visit Diagnoses Not on filedocumented in this encounter Care Teams Service Manager Relationship Specialty Start Date End Date Radu Gaona ND [address] [place] [address] PCP - General Naturopathic Medicine 06/14/16 documented as of this encounter
--- OUTSIDE RECORDS SUMMARY | 2023-11-24 02:21 | XMS_ITS | Encounter Summary ---
Author Organization [facility] [place] [address] Care Team Providers Care Butadiene Converter Utility Operator Name Role Phone Radu Gaona ND Primary Care Provider [phone] Reason for Visit * Reason Comments Eye Exam Encounter Details Date Type Department Care Team (Latest Contact Info) Description 10/04/2019 7:20 AM EDT Office Visit Ophthalmology [place] [facility] [place] [address] Kayli Hendricks, [place] [address] Accommodative esotropia; Hypermetropia of both eyes Social History Tobacco Use Types Packs/Day Years Used Date Smoking Tobacco: Never Smokeless Tobacco: Never Alcohol Use Standard Drinks/Week Comments No 0 (1 standard drink = 0.6 oz pur e alcohol) Sex and Gender Information Value Date Recorded Sex Assigned at Not on file Gender Identity Not on file Sexual Orientation Not on file documented as of this encounter Progress Notes * Kayli Hendricks, OD - 10/04/2019 7:20 AM EDT Genoveva Gonzalez is a 19 y.o. female who had concerns including Eye Exam. Successful CL wear since 01/26/18, with excellent ocular alignment in CLs. Updated CL and glasses Rx dispensed today based on cyclo retinoscopy. Less plus given, vision improved, but need to monitor for increased eso with less plus in Rx. Pt and father educated to call or return with increased crossing. Encounter Diagnoses Name Primary? Accommodative esotropia ??? Hypermetropia of both eyes Assessment: 1) Successful fit, comfort and vision achieved with below CL Rx: Final Contact Lens Rx Brand Base Curve Diameter Sphere Cylinder [place] Right Acuvue Oasys Astigmatism 8.6 14.5 +4.50 -1.25 180 Left Acuvue Oasys Astigmatism 8.6 14.5 +3.75 -1.25 020 Expiration Date: 10/04/2020 Replacement: Every 2 weeks Solutions: OptiFree Express Wearing Schedule: Daily wear Patient educated that if eye becomes red, irritated, sensitive to light or a change in vision occurs discontinue contact lens and RTC immediately. 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 Shoemaker * H/o patching OS [id number] w/ excellent compliance * H/o bifocals until 2014 (excellent control with SVL since then) * Improved visual acuity with less plus both eyes today * Almost equal acuity today, h/o amblyopia OD Plan: 1) Updated CL Rx dispensed today. Educated about the importance of following recommended wear timesincluding not sleeping or showering in the lenses. Patient was also educated about the importance of proper CL hygiene, including cleaning the lenses. Monitor yearly. 2) F/u with Dr. Gomez as scheduled. Family would like to have one more exam with EMS. Follow-up: as scheduled with Dr. Gomez 03/24/2020. Optometry 1 year for CL check, sooner PRN. Eyeglass Final Rx Eyeglass Final Rx Sphere Cylinder [place] Right +3.00 +1.50 095 Left +2.50 +1.25 105 Type: SVL Expiration Date: 10/04/2021 Comments: Polycarbonate Kayli Hendricks, MIRELLA 10/04/2019 documented in this encounter Plan of Treatment Not on file documented as of this encounter Visit Diagnoses Diagnosis Accommodative esotropia Accommodative component in esotropia Hypermetropia of both eyes Hypermetropia documented in this encounter Care Teams Butadiene Converter Utility Operator Relationship Specialty Start Date End Date Radu Gaona ND [address] [place] [address] PCP - General Naturopathic Medicine 06/14/16 documented as of this encounter
--- OUTSIDE RECORDS SUMMARY | 2023-11-24 02:21 | XMS_ITS | Clinical Summary ---
Author Organization [facility] [place] [address] Care Team Providers Care Rouge Miller Name Role Phone Radu Gaona ND Primary Care Provider [phone] Allergies No known active allergies Medications No known medications Active Problems Patient Care Coordination No te Formatting of this note migh t be different from the original. Accommodative ET Problem Noted Date Diagnosed Date Accommodative esotropia 01/08/2013 Hyperopia 01/08/2013 Family History * Patient is adopted Medical History Relation Comments Amblyopia Neg Hx Blindness Neg Hx Cancer Neg Hx Cataracts Neg Hx Diabetes Neg Hx Glaucoma Neg Hx Heart Disease Neg Hx Hypertension Neg Hx Macular Degeneration Neg Hx Retinal Detachment Neg Hx Strabismus Neg Hx Stroke Neg Hx Thyroid Disease Neg Hx Social History Tobacco Use Types Packs/Day Years Used Date Smoking Tobacco: Never Smokeless Tobacco: Never Alcohol Use Standard Drinks/Week Comments No 0 (1 standard drink = 0.6 oz pur e alcohol) Sex and Gender Information Value Date Recorded Sex Assigned at Not on file Gender Identity Not on file Sexual Orientation Not on file Last Filed Vital Signs Vital Sign Reading Time Taken Comments Blood Pressure 115/84 06/29/2018 4:15 PM EDT Pulse 75 06/29/2018 4:22 PM EDT Temperature 36.7 ??C (98.1 ??F) 06/29/2018 2:47 PM ED T Respiratory Rate 19 06/29/2018 4:22 PM EDT Oxygen Saturation 100% 06/29/2018 4:22 PM EDT Inhaled Oxygen Concentration - - Weight 52.5 kg (115 lb 12.8 oz) 06/29/2018 2:47 PM EDT Height - - Body Mass Index - - Plan of Treatment Health Maintenance Due Date Last Done Comments Chlamydia Screening 2017 HPV vaccine (1 - 3-dose series) 2017 HIV screen 2020 Hepatitis C Screening 2020 Hepatitis B vaccine (0-59 yrs) (1) 2021 Tdap adult 2021 Tetanus vaccine 2021 Covid-19 Vaccine (1 - 2022- season) 2022 PAP Smear 2023 Influenza (Flu) vaccine (1 o f 1 - Influenza standard series) 12/04/2023 Care Teams Rouge Miller Relationship Specialty Start Date End Date Radu Gaona ND [address] [place], [place] [address] PCP - General Naturopathic Medicine 06/14/16
--- OUTSIDE RECORDS SUMMARY | 2023-11-24 02:21 | XMS_ITS | Encounter Summary ---
Author Organization [facility] [address] Care Team Providers Care Sports Marketing Internship Name Role Phone Radu Gaona ND Primary Care Provider [phone] Encounter Details Date Type Department Care Team (Late st Contact Info) Description 01/04/2018 Telephone Ophthalmology at [facility] [place] [address] Kayli Hendricks, MIRELLA [facility] [place] [address] Social History Tobacco Use Types Packs/Day Years Used Date Smoking Tobacco: Never Assessed Sex and Gender Information Value Date Recorded Sex Assigned at Not on file Gender Identity Not on file Sexual Orientation Not on file documented as of this encounter Plan of Treatment Not on file documented as of this encounter Visit Diagnoses Not on filedocumented in this encounter Care Teams Sports Marketing Internship Relationship Specialty Start Date End Date Radu Gaona ND [address] [place] [address] PCP - General Naturopathic Medicine 06/14/16 documented as of this encounter
--- OUTSIDE RECORDS SUMMARY | 2023-11-24 02:21 | XMS_ITS | Encounter Summary ---
Author Organization [facility] Address [facility] [place] [address] Care Team Providers Care Self Storage Manager Name Role Phone Radu Gaona ND Primary Care Provider [phone] Reason for Visit * Reason Comments Strabismus Encounter Details Date Type Department Care Team (Latest Contact Info) Description 08/07/2018 1:30 PM EDT Office Visit Ophthalmology at [facility] [place] [address] Elda Gomez MD [facility] [place] [address] Accommodative esotropia; Hypermetropia of both eyes Social [...] as of this encounter Progress Notes * Elda Gomez MD - 08/07/2018 1:30 PM EDT Genoveva Gonzalez is a 18 y.o. female with: 1. 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 Shoemaker. Nice alignment with no real residual near ET' without bifocal over past 2 years. 2. Hyperopic astigmatism OU. Doing well with CL's, good near equal vision. Plan: Continue current Rx and CLs per Dr. Hendricks. F/u with Dr. Hendricks for CL check in 6 months, EMS in 1 year. Family would like to have one more exam with EMS. Elda Gomez MD 08/07/2018 documented in this encounter Plan of Treatment Not on file documented as of this encounter Visit Diagnoses Diagnosis Accommodative esotropia Accommodative component in esotropia Hypermetropia of both eyes Hypermetropia documented in this encounter Care Teams Self Storage Manager Relationship Specialty Start Date End Date Radu Gaona ND [address] [place] [address] PCP - General Naturopathic Medicine 06/14/16 documented as of this encounter
--- OUTSIDE RECORDS SUMMARY | 2023-11-24 02:21 | XMS_ITS | Encounter Summary ---
Author Organization [facility] Address [address] [place] [address] Care Team Providers Care Fitness Management Director Name Role Phone Unavailable Primary Care Provider Unavailabl e Encounter Details Date Type Department Care Team (Late st Contact Info) Description 08/24/2022 Lab Requisition [facility] Pathology & Laboratory Medicine - [facility] [address] [place] [address] Outr Resulting Lab, Provider Social History Tobacco Use Types Packs/Day Years Used Date Smoking Tobacco: Never Assessed Sex and Gender Information Value Date Recorded Sex Assigned at Not on file Gender Identity Not on file Sexual Orientation Not on file documented as of this encounter Plan of Treatment Not on file documented as of this encounter Procedures Procedure Name Priority Date/Time Associated Diagnosis Comments VITAMIN B12 Routine 08/24/2022 16:05 EDT documented in this encounter Results * VITAMIN B12 (08/24/2022 16:05 EDT) Vitamin B12 477 211 - 911 pg/mL 08/24/2022 23:02 EDT [facility] Blood VENOUS BLOOD / Unknown 08/24/2022 16:05 EDT 08/24/2022 21:41 EDT Provider Outr Resulting Lab CHEMISTRY & BLOOD GAS ORDERABLES [facility] [address] [place] [address] documented in this encounter Visit Diagnoses Not on filedocumented in this encounter
--- OUTSIDE RECORDS SUMMARY | 2023-11-24 02:21 | XMS_ITS | Encounter Summary ---
Author Organization [facility] Address [address] [place] [address] Care Team Providers Care Job Site Supervisor Name Role Phone Unavailable Primary Care Provider Unavailabl e Encounter Details Date Type Department Care Team (Late st Contact Info) Description 06/01/2022 Lab Requisition [facility] Pathology & Laboratory Medicine - [address] [address] Outr Resulting Lab, Provider Social History Tobacco [...] Procedure Name Priority Date/Time Associated Diagnosis Comments SYPHILIS SEROLOGY Routine 06/01/2022 15: 54 EST RUBELLA IGG ANTIBODY Routine 06/01/2022 15:54 EST HEPATITIS B SURFACE ANTIGEN Routine 06/01/2022 15:54 EST THYROID ANTIBODIES Routine 06/01/2022 15 :54 EST documented in this encounter Results * THYROID ANTIBODIES (06/01/2022 15:54 EST) Anti-Thyroglobulin <15 <=60 U/mL 2022 9:06 EST [facility] Thyroperoxidase Ab 40 <=60 U/mL 2022 9:06 EST [facility] Blood VENOUS BLOOD / Unknown 06/01/2022 15:54 EST 06/01/2022 22:56 EST Provider Outr Resulting Lab CHEMISTRY & BLOOD GAS ORDERABLES [facility] [address] [place] [address] * RUBELLA IGG ANTIBODY (06/01/2022 15:54 EST) Rubella IgG Ab Positive See Note 06/02/2022 10:41 EST [facility] Comment:Positive for IgG ant ibodies to Rubella virus. Blood VENOUS BLOOD / Unknown 06/01/2022 15:54 EST 06/01/2022 22:56 EST Provider Outr Resulting Lab CHEMISTRY & BLOOD GAS ORDERABLES Performing Organization Address [facility] Co de Phone Number [facility] [address] [place] [address] * SYPHILIS SEROLOGY (06/01/2022 15:54 EST) Syphilis Serology Negative Negative 06/02/2022 10:49 EST [facility] Blood VENOUS BLOOD / Unknown 06/01/2022 15:54 EST 06/01/2022 22:56 EST Provider Outr Resulting Lab IMMUNOLOGY A ND SEROLOGY ORDERABLES Performing Organization Address [facility] Co de Phone Number [facility] [address] [place] [address] * HEPATITIS B SURFACE ANTIGEN (06/01/2022 15:54 EST) Hep B Surface Ag Negative Negative 06/02/2022 9:25 EST [facility] Blood VENOUS BLOOD / Unknown 06/01/2022 15:54 EST 06/01/2022 22:56 EST Provider Outr Resulting Lab CHEMISTRY & BLOOD GAS ORDERABLES Performing Organization Address [facility]/ZIP Co de Phone Number [facility] [address] [place] [address] documented in this encounter Visit Diagnoses Not on filedocumented in this encounter
--- OUTSIDE RECORDS SUMMARY | 2023-11-24 02:21 | XMS_ITS | Encounter Summary ---
Author Organization [facility] [place] [address] Care Team Providers Care Director Of Business Continuity Name Role Phone Radu Gaona ND Primary Care Provider [phone] Reason for Visit * Reason Comments Eye Exam Encounter Details Date Type Department Care Team (Latest Contact Info) Description 12/18/2020 2:40 PM EDT Office Visit Ophthalmology at [facility] [place] [address] Kayli Hendricks, OD [facility] [place] [address] Accommodative esotropia; Hyperopic astigmatism of both eyes; Hypermetropia of both eyes Social History Tobacco [...] Progress Notes * Kayli Hendricks, OD - 12/18/2020 2:40 PM EDT Genoveva Jurado Carlos is a 20 y.o. female who had concerns including Eye Exam. Successful CL wear since 01/26/18, with excellent ocular alignment in CLs. Encounter Diagnoses Name Primary? Accommodative esotropia ??? Hyperopic astigmatism of both eyes ??? Hypermetropia of both eyes Assessment: 1) Soft CL wearer - noting blurry vision with current contacts, but no Rx change found today. 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 Shoemaker * H/o patching OS [id number] w/ excellent compliance * H/o bifocals until 2014 (excellent control with SVL since then) * Improved visual acuity with less plus both eyes today * Almost equal acuity today, h/o amblyopia OD Plan: 1) CL recheck in 1-2 weeks. 2) Monitor. Follow-up: CL check in 1-2 weeks. Eyeglass Final Rx Eyeglass Final Rx Sphere Cylinder [place] Right +3.00 +1.50 095 Left +2.50 +1.25 105 Type: SVL Expiration Date: 12/19/2022 Pupillary Distance: 59 documented in this encounter Plan of Treatment Not on file documented as of this encounter Visit Diagnoses Diagnosis Accommodative esotropia Accommodative component in esotropia Hyperopic astigmatism of both eyes Hypermetropia of both eyes Hypermetropia documented in this encounter Care Teams Director Of Business Continuity Relationship Specialty Start Date End Date Radu Gaona ND [address] [place] [address] PCP - General Naturopathic Medicine 06/14/16 documented as of this encounter
--- OUTSIDE RECORDS SUMMARY | 2023-11-24 02:21 | XMS_ITS | Encounter Summary ---
Author Organization [facility] [place] [address] Care Team Providers Care Chip Bin Conveyor Tender Name Role Phone Radu Gaona ND Primary Care Provider [phone] Reason for Visit * Reason Comments Contact Lens Training Encounter Details Date Type Department Care Team (Late st Contact Info) Description 02/20/2018 1:00 PM EST Clinical Support Ophthalmology at [facility] [place] [address] Social History Tobacco Use Types Packs/Day Years Used Date Smoking Tobacco: Never Assessed Sex and Gender Information Value Date Recorded Sex Assigned at Not on file Gender Identity Not on file Sexual Orientation Not on file documented as of this encounter Progress Notes * Kayli Hendricks, OD - 02/20/2018 1:00 PM EST Excellent initial fit and vision Lenses have 0 rotation and are fitting very well with good comfort Distance VA cc OD 20/30 OS 20/20 CT at distance = ortho CT at near = small esophoria documented in this encounter Plan of Treatment Not on file documented as of this encounter Visit Diagnoses Not on filedocumented in this encounter Care Teams Chip Bin Conveyor Tender Relationship Specialty Start Date End Date Radu Gaona ND [address] [place] [address] PCP - General Naturopathic Medicine 06/14/16 documented as of this encounter
--- OUTSIDE RECORDS SUMMARY | 2023-11-24 02:21 | XMS_ITS | Encounter Summary ---
Author Organization [facility] Address [address] [place] [address] Care Team Providers Care Drafter Chief Design Name Role Phone Unavailable Primary Care Provider Unavailabl e Encounter Details Date Type Department Care Team (Late st Contact Info) Description 06/30/2022 Lab Requisition [facility] Pathology & Laboratory Medicine - [address] [address] Outr Resulting Lab, Provider Social History Tobacco [...] Date/Time Associated Diagnosis Comments VITAMIN B12 Routine 06/29/2022 15:00 EDT documented in this encounter Results * VITAMIN B12 (06/29/2022 15:00 EDT) Vitamin B12 632 211 - 911 pg/mL 06/30/2022 18:31 EDT [facility] Blood VENOUS BLOOD / Unknown 06/29/2022 15:00 EDT 06/30/2022 17:27 EDT Provider Outr Resulting Lab CHEMISTRY & BLOOD GAS ORDERABLES [facility] [address] [place] [address] documented in this encounter Visit Diagnoses Not on filedocumented in this encounter
--- OUTSIDE RECORDS SUMMARY | 2023-11-24 02:21 | XMS_ITS | Encounter Summary ---
Author Organization [facility] [place] [address] Care Team Providers Care Boxing Promoter Name Role Phone Radu Gaona ND Primary Care Provider [phone] Encounter Details Date Type Department Care Team (Late st Contact Info) Description 07/25/2019 Telephone Ophthalmology at [facility] [place] [id number] Kayli Hendricks, MIRELLA [facility] [place] [address] Social History Tobacco Use Types Packs/Day Years [...] on filedocumented in this encounter Care Teams Boxing Promoter Relationship Specialty Start Date End Date Radu Gaona ND [address] [place] [address] PCP - General Naturopathic Medicine 06/14/16 documented as of this encounter
--- OUTSIDE RECORDS SUMMARY | 2023-11-24 02:21 | XMS_ITS | Encounter Summary ---
Author Organization [facility] Address [address] [place] [address] Care Team Providers Care Traffic Incident Management Manager Name Role Phone Unavailable Primary Care Provider Unavailabl e Encounter Details Date Type Department Care Team (Late st Contact Info) Description 08/24/2022 Lab Requisition [facility] Pathology & Laboratory Medicine - [facility] [address] [place] [address] Outr Resulting Lab, Provider Social History Tobacco [...] Procedure Name Priority Date/Time Associated Diagnosis Comments HEMOGLOBIN S SCREEN Routine 08/24/2022 1 6:05 EDT documented in this encounter Results * HEMOGLOBIN S SCREEN (08/24/2022 16:05 EDT) Sickle Cell Prep Negative Negative 08/25/2022 13:10 EDT [facility] Blood VENOUS BLOOD / Unknown 08/24/2022 16:05 EDT 08/24/2022 21:36 EDT Provider Outr Resulting Lab HEMATOLOGY & PF4 ORDERABLES [facility] [address] [place] [address] documented in this encounter Visit Diagnoses Not on filedocumented in this encounter
--- OUTSIDE RECORDS SUMMARY | 2023-11-24 02:21 | XMS_ITS | Encounter Summary ---
Author Organization [facility] [place] [address] Care Team Providers Care Cane Packer Name Role Phone Radu Gaona ND Primary Care Provider [phone] Reason for Visit * Reason Comments Skin Check Encounter Details Date Type Department Care Team (Late st Contact Info) Description 05/11/2019 8:45 AM EST Office Visit Dermatology at [address] [address] Ovi Renee MD [address] [place] [address], [facility] [place] [address] Nevus Social History Tobacco Use Types Packs/Day Years Used Date Smoking Tobacco: Never Smokeless Tobacco: Never Alcohol Use Standard Drinks/Week Comments No 0 (1 standard drink = 0.6 oz pur e alcohol) Sex and Gender Information Value Date Recorded Sex Assigned at Not on file Gender Identity Not on file Sexual Orientation Not on file documented as of this encounter Progress Notes * Ovi Renee MD - 05/11/2019 8:45 AM EST Clinical impression: Nevus, often irritated Size: 1.5 cm Deep suture: 5-0 Vicryl Surface suture: 5-0 Ethilon Follow-up will be 1 week for suture removal and biosy results Indications for surgery, possible adverse outcomes, and activity restrictions discussed. Informed verbal consent was obtained. Skin surface was prepared with 4% chlorhexidine and draped in usual sterile manner. Local anesthesia with 1% lidocaine, 1 100,000 epinephrine and 0.1 mEq/mL bicarbonate. Using #15 blade, an excision was carried out around the lesion. Undermining performed peripherally. Hemostasis with electrodesiccation. Layered closure performed, with specimen to pathology. Wound dressed, wound care reviewed. End length of suture line was 1.8 cm Follow-up in 1 week for suture removal and biopsy results CC: Radu Gaona ND documented in this encounter Plan of Treatment Not on file documented as of this encounter Visit Diagnoses Diagnosis Nevus Benign neoplasm of skin, site unspecified documented in this encounter Care Teams Cane Packer Relationship Specialty Start Date End Date Radu Gaona ND [address] [place] [address] PCP - General Naturopathic Medicine 06/14/16 documented as of this encounter
--- OUTSIDE RECORDS SUMMARY | 2023-11-24 02:21 | XMS_ITS | Clinical Summary ---
Author Organization [facility] Address [address] [place] [address] Care Team Providers Care Community Theater Actor Name Role Phone Unavailable Primary Care Provider Unavailabl e Social History Tobacco Use Types Packs/Day Years Used Date Smoking Tobacco: Never Assessed Sex and Gender Information Value Date Recorded Sex Assigned at Not on file Gender Identity Not on file Sexual Orientation Not on file Plan of Treatment Health Maintenance Due Date Last Done Comments Hepatitis C Screen 2002 Hepatitis B Vaccine (1 of 3 - 19+ 3-dose series) 05/01 COVID-19 Vaccine (2022-24 season) 2022
--- OUTSIDE RECORDS SUMMARY | 2023-11-24 02:21 | XMS_ITS | Encounter Summary ---
Author Organization [facility] [place] [address] Care Team Providers Care Solution Maker Name Role Phone Radu Gaona ND Primary Care Provider Encounter Details Date Type Department Care Team (Late st Contact Info) Description 06/17/2020 Telephone Ophthalmology at [facility] [place] [phone] Kayli Hendricks, MIRELLA [facility] [place] [address] Social History Tobacco Use Types Packs/Day Years [...] on filedocumented in this encounter Care Teams Solution Maker Relationship Specialty Start Date End Date Radu Gaona ND [address] [place] [address] PCP - General Naturopathic Medicine 06/14/16 documented as of this encounter
--- OUTSIDE RECORDS SUMMARY | 2023-11-24 02:21 | XMS_ITS | Encounter Summary ---
Author Organization [facility] [place] [address] Care Team Providers Care Concrete Stone Finishing Supervisor Name Role Phone Radu Ganoa ND Primary Care Provider [phone] Encounter Details Date Type Department Care Team (Late st Contact Info) Description 06/16/2020 Telephone Ophthalmology at [facility] [place] [address] Kayli Hendricks, MIRELLA [facility] [place] [address] Social History Tobacco Use Types Packs/Day Years [...] encounter Miscellaneous Notes * Telephone Encounter - Elda Cazares - 06/16/2020 12:06 PM EDT Mom called in requesting a copy of the pts last eye glasses rx to be sent to the PO box on file documented in this encounter Plan of Treatment Not on file documented as of this encounter Visit Diagnoses Not on filedocumented in this encounter Care Teams Concrete Stone Finishing Supervisor Relationship Specialty Start Date End Date Radu Gaona ND [address] [place] [address] PCP - General Naturopathic Medicine 06/14/16 documented as of this encounter
--- OUTSIDE RECORDS SUMMARY | 2023-11-24 02:21 | XMS_ITS | Referral Summary ---
Author Organization [facility] Address [address] [place] [address] Care Team Providers Care Pre Coder Name Role Phone Unavailable Primary Care Provider Unavailabl e Social History Tobacco Use Types Packs/Day Years Used Date Smoking Tobacco: Never Assessed Sex and Gender Information Value Date Recorded Sex Assigned at Not on file Gender Identity Not on file Sexual Orientation Not on file Plan of Treatment Not on file
--- OUTSIDE RECORDS SUMMARY | 2023-11-24 02:21 | XMS_ITS | Encounter Summary ---
Author Organization [facility] Address [address] [place] [address] Care Team Providers Care Auto Collision Repair Instructor Name Role Phone Unavailable Primary Care Provider Unavailabl e Encounter Details Date Type Department Care Team (Late st Contact Info) Description 06/30/2022 Lab Requisition [facility] Pathology & Laboratory Medicine - [address] [address] Outr Resulting Lab, Provider Social History Tobacco [...] Procedure Name Priority Date/Time Associated Diagnosis Comments FOLATE Routine 06/29/2022 15:00 EDT documented in this encounter Results * FOLATE (06/29/2022 15:00 EDT) Folate 8.4 See Note ng/mL 06/30/2022 18:25 EDT [facility] Comment: Reference Ranges for Folate: Deficient: ?< 3.4 ng/mL Indeterminate: ??3.4 - 5.4 ng/mL Normal: ? > 5.4 ng/mL The results of this assay can be falsely elevated due to the consumption of Biotin. Blood VENOUS BLOOD / Unknown 06/29/2022 15:00 EDT 06/30/2022 17:27 EDT Provider Outr Resulting Lab CHEMISTRY & BLOOD GAS ORDERABLES [facility] [address] [place] [address] documented in this encounter Visit Diagnoses Not on filedocumented in this encounter
--- OUTSIDE RECORDS SUMMARY | 2023-11-24 02:21 | XMS_ITS | Encounter Summary ---
Author Organization [facility] Address [address] [place] [address] Care Team Providers Care Pipefitter Welder Name Role Phone Unavailable Primary Care Provider Unavailabl e Encounter Details Date Type Department Care Team (Late st Contact Info) Description 06/30/2022 Lab Requisition [facility] Pathology & Laboratory Medicine - [address] [address] Outr Resulting Lab, Provider Social History Tobacco [...] Name Priority Date/Time Associated Diagnosis Comments VITAMIN D (25,OH) Routine 06/29/2022 15: 00 EDT documented in this encounter Results * (ABNORMAL) VITAMIN D (25,OH) (06/29/2022 15:00 EDT) 25OH Vitamin D Tot 14(L) 30 - 100 ng/mL 07/01/2022 9:38 EDT [facility] Comment: Vitamin D 25,OH Interpretive Ranges: Deficiency: ??<10.0 ng/mL Insufficiency: ??10.0 - 30.0 ng/mL Sufficiency: ??30.0 - 100.0 ng/mL Toxicity: ??>100.0 ng/mL Blood VENOUS BLOOD / Unknown 06/29/2022 15:00 EDT 06/30/2022 17:27 EDT Provider Outr Resulting Lab CHEMISTRY & BLOOD GAS ORDERABLES [facility] [address] [place] [address] documented in this encounter Visit Diagnoses Not on filedocumented in this encounter
--- OUTSIDE RECORDS SUMMARY | 2023-11-24 02:21 | XMS_ITS | Encounter Summary ---
Author Organization [facility] [place] [address] Care Team Providers Care Director Of Radio Services Name Role Phone Radu Gaona ND Primary Care Provider [phone] Reason for Visit * Reason Comments Contact Lens Check Encounter Details Date Type Department Care Team (Latest Contact Info) Description 12/22/2020 2:20 PM EDT Office Visit Ophthalmology at [facility] [place] [address] Kayli Hendricks, OD [facility] [place] [address] Accommodative esotropia; Hyperopic astigmatism of both eyes Social History Tobacco Use [...] Progress Notes * Kayli Hendricks, OD - 12/22/2020 2:20 PM EDT Neishajessica Gonzalez is a 20 y.o. female who had concerns including Contact Lens Check. CL check. Successful CL wear since 01/26/18, with excellent ocular alignment & vision in CLs. Appreciates slightlyless plus today, updated CL Rx dispensed. Less plus given, vision improved, but need to monitor forincreased eso with less plus in Rx. Encounter Diagnoses Name Primary? Accommodative esotropia ??? Hyperopic astigmatism of both eyes Assessment: 1) Successful fit, comfort and vision achieved with below CL Rx: Final Contact Lens Rx Brand Base Curve Diameter Sphere Cylinder Henderson Right Acuvue Oasys Astigmatism 8.6 14.5 +4.00 -1.25 180 Left Acuvue Oasys Astigmatism 8.6 14.5 +3.50 -1.25 020 Expiration Date: 12/23/2021 Replacement: Every 2 weeks Solutions: OptiFree Express Wearing Schedule: Daily wear Patient educated that if eye becomes red, irritated, sensitive to light or a change in vision occurs discontinue contact lens and RTC immediately. The patient provided signed acknowledgment of receipt of final contact lens prescription. 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 Shoemaker * H/o patching OS [id number] w/ excellent compliance * H/o bifocals until 2014 (excellent control with SVL since then) * Improved visual acuity with less plus both eyes today * Almost equal acuity today, h/o amblyopia OD Plan: 1) Final CL Rx dispensed. Patient was educated about the importance of following recommended wear times including not sleeping, swimming, or showering in lenses. Patient was also educated about the importance of proper CL hygiene, including cleaning the lenses. Patient was recommended to RTC in 1 year for annual CL CEE. Monitor. 2) Monitor. Follow-up: 1 year CEE. documented in this encounter Plan of Treatment Not on file documented as of this encounter Visit Diagnoses Diagnosis Accommodative esotropia Accommodative component in esotropia Hyperopic astigmatism of both eyes documented in this encounter Care Teams Director Of Radio Services Relationship Specialty Start Date End Date Radu Gaona ND [address] [place] [address] PCP - General Naturopathic Medicine 06/14/16 documented as of this encounter
--- OUTSIDE RECORDS SUMMARY | 2023-11-24 02:21 | XMS_ITS | Encounter Summary ---
Author Organization [facility] [place] [address] Care Team Providers Care Squash Centre Manager Name Role Phone Radu Gaona ND Primary Care Provider [phone] Reason for Visit * Reason Comments Contact Lens Check Encounter Details Date Type Department Care Team (Latest Contact Info) Description 02/27/2018 3:30 PM EST Office Visit Ophthalmology at [facility] [place] [address] Kayli Hendricks, OD [facility] [place] [address] Accommodative esotropia; Hypermetropia of both eyes Social [...] Progress Notes * Kayli Hendricks, OD - 02/27/2018 3:30 PM EST Genoveva Gonzalez is a 17 y.o. female who presented today for CL check (new CL wearer). Genoveva is an established patient with Dr. Gomez and Pinky (I saw her for routine CEE on 01/03/18). Last exam with Dr. Gomez 01/2016. Last seen by Pinky 06/14/16. Had CL fit 01/26/18 and is doing excellent, orthophoria at distance and only tiny esophoria at near with CLs. Vision with CLs is OD 20/25+2, OS 20/20. Assessment: 1) Successful fit, comfort and vision achieved with below CL Rx: Final Contact Lens Rx Brand Base Curve Diameter Sphere Cylinder [place] Lens Right Acuvue Oasys Astigmatism 8.6 14.5 +4.75 -1.25 180 Daily Wear Left Acuvue Oasys Astigmatism 8.6 14.5 +4.75 -1.25 020 Daily Wear Expiration Date: 02/28/2019 Replacement: Every 2 weeks Solutions: OptiFree Express Wearing Schedule: Daily wear Patient educated that if eye becomes red, irritated, sensitive to light or a change in vision occurs to contact the clinic immediately and discontinue contact lens wear till further notice from an tax services professional. 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 Shoemaker * H/o patching OS 4204-0878 w/ excellent compliance * H/o bifocals until 2014 (excellent control with SVL since then) * Excellent alignment with no real residual near ET' without bifocal * Improved visual acuity with less plus OS after 01/2018 CEE with me * Almost equal acuity today, h/o amblyopia OD Plan: 1) CL Rx dispensed today. Patient was educated about the importance of following recommended wear times including not sleeping or showering in the lenses. Patient was also educated about the importance of proper CLhygiene, including cleaning the lenses. Patient was recommended to RTC in 1 year for annual CL CEE. Monitor. 2) F/u with Dr. Gomez as scheduled August 2018, sooner PRN. Follow-up: as scheduled with Dr. Gomez 08/2018. Optometry 1 year for CL check, sooner PRN. Kayli Hendricks, MIRELLA 02/27/2018 ADDENDUM 07/25/2019 CL Rx extended and mailed to patient as below Final Contact Lens Rx Brand Base Curve Diameter Sphere Cylinder [place] Lens Right Acuvue Oasys Astigmatism 8.6 14.5 +4.75 -1.25 180 Daily Wear Left Acuvue Oasys Astigmatism 8.6 14.5 +4.75 -1.25 020 Daily Wear Expiration Date: 04/03/2020 Replacement: Every 2 weeks Solutions: OptiFree Express Wearing Schedule: Daily wear documented in this encounter Plan of Treatment Not on file documented as of this encounter Visit Diagnoses Diagnosis Accommodative esotropia Accommodative component in esotropia Hypermetropia of both eyes Hypermetropia documented in this encounter Care Teams Squash Centre Manager Relationship Specialty Start Date End Date Radu Gaona ND [address] [place] [address] PCP - General Naturopathic Medicine 06/14/16 documented as of this encounter
--- OUTSIDE RECORDS SUMMARY | 2023-11-24 02:21 | XMS_ITS | Encounter Summary ---
Author Organization [facility] Address [facility] [place] [address] Care Team Providers Care Emotionally Impaired Teacher Name Role Phone Radu Gaona ND Primary Care Provider [phone] Reason for Visit * Reason Comments Strabismus Encounter Details Date Type Department Care Team (Latest Contact Info) Description 03/24/2020 9:30 AM EST Office Visit Ophthalmology at [facility] [address] Elda Gomez MD [facility] [place] [address] Accommodative esotropia; Hyperopic astigmatism of both eyes [...] Progress Notes * Elda Gomez MD - 03/24/2020 9:30 AM EST Genoveva Gonzalez is a 19 y.o. female with: 1. 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 Shoemaker. Nice alignment with no real residual near ET' without bifocal over past 3 years. No further surgeryrecommended at this time. Discussed possible changes to alignment over time, with need to keep glasses/CL's updated for vision and alignment. 2. Hyperopic astigmatism OU. Doing well with CL's, good near equal vision. Some variability in Va cc CL today with improved withblink. No complaints and no change on retinoscopy. Sensitive to over-plus correction in general. Plan: Continue current Rx and CLs per Dr. Hendricks. F/u with Dr. Hendricks for CEE and ongoing eye care in 6 months. I am happy to see Destee back with any concerns with alignment, adult strab clinic. Elda Gomez MD 03/24/2020 documented in this encounter Plan of Treatment Not on file documented as of this encounter Visit Diagnoses Diagnosis Accommodative esotropia Accommodative component in esotropia Hyperopic astigmatism of both eyes documented in this encounter Care Teams Emotionally Impaired Teacher Relationship Specialty Start Date End Date Radu Gaona ND [address] [place] [address] PCP - General Naturopathic Medicine 06/14/16 documented as of this encounter
--- OUTSIDE RECORDS SUMMARY | 2023-11-24 02:21 | XMS_ITS | Encounter Summary ---
Author Organization [facility] [place] [address] Care Team Providers Care Wood Tank Erector Name Role Phone Radu Gaona ND Primary Care Provider [phone] Reason for Visit * Reason Comments Suture / Staple Removal Encounter Details Date Type Department Care Team (Late st Contact Info) Description 05/18/2019 10:30 AM EST Office Visit Dermatology at [address] [address] Ovi Renee MD [address] [facility] [place] [address] Visit for suture removal Social History Tobacco Use Types Packs/Day Years [...] Progress Notes * Ovi Renee MD - 05/18/2019 10:30 AM EST Problem: Irritated nevus lower anterior base of neck , status post excision, here for suture removal Destee follows up and the biopsy came back showing a benign nevus Physical examination shows excellent healing of the biopsy site. Assessment and plan: Status post excision intradermal nevus anterior base of neck 1. Sutures removed 2. May DC wound instructions 3. Patient congratulated on good healing of site 4. Return to clinic as needed CC: Radu Gaona ND documented in this encounter Plan of Treatment Not on file documented as of this encounter Visit Diagnoses Diagnosis Visit for suture removal Encounter for removal of sutures documented in this encounter Care Teams Wood Tank Erector Relationship Specialty Start Date End Date Radu Gaona ND [address] [place] [address] PCP - General Naturopathic Medicine 06/14/16 documented as of this encounter
--- OUTSIDE RECORDS SUMMARY | 2023-11-24 02:21 | XMS_ITS | Encounter Summary ---
Author Organization [facility] Address [address] [place] [address] Care Team Providers Care Graduation Coach Name Role Phone Unavailable Primary Care Provider Unavailabl e Encounter Details Date Type Department Care Team (Late st Contact Info) Description 08/24/2022 Lab Requisition [facility] Pathology & Laboratory Medicine - [address] [address] Outr Resulting Lab, Provider Social History Tobacco [...] Priority Date/Time Associated Diagnosis Comments FOLATE Routine 08/24/2022 16:05 EDT documented in this encounter Results * FOLATE (08/24/2022 16:05 EDT) Folate 12.7 See Note ng/mL 08/24/2022 23:15 EDT [facility] Comment: Reference Ranges for Folate: Deficient: ?< 3.4 ng/mL Indeterminate: ??3.4 - 5.4 ng/mL Normal: ? > 5.4 ng/mL The results of this assay can be falsely elevated due to the consumption of Biotin. Blood VENOUS BLOOD / Unknown 08/24/2022 16:05 EDT 08/24/2022 21:41 EDT Provider Outr Resulting Lab CHEMISTRY & BLOOD GAS ORDERABLES [facility] [address] [place] [address] documented in this encounter Visit Diagnoses Not on filedocumented in this encounter
--- OUTSIDE RECORDS SUMMARY | 2023-11-24 02:21 | XMS_ITS | Encounter Summary ---
Author Organization [facility] [place] [address] Care Team Providers Care Telegraph Office Route Aide Name Role Phone Radu Gaona ND Primary Care Provider [phone] Reason for Visit * Reason Comments Contact Lens Training Encounter Details Date Type Department Care Team (Late st Contact Info) Description 02/02/2018 1:30 PM EDT Clinical [place] [address] Social History Tobacco Use Types Packs/Day Years Used Date Smoking Tobacco: Never Assessed Sex and Gender Information Value Date Recorded Sex Assigned at Not on file Gender Identity Not on file Sexual Orientation Not on file documented as of this encounter Plan of Treatment Not on file documented as of this encounter Visit Diagnoses Not on filedocumented in this encounter Care Teams Telegraph Office Route Aide Relationship Specialty Start Date End Date Radu Gaona ND [address] [place] [address] PCP - General Naturopathic Medicine 06/14/16 documented as of this encounter
--- OUTSIDE RECORDS SUMMARY | 2023-11-24 02:21 | XMS_ITS | Encounter Summary ---
Author Organization [facility] [place] [address] Care Team Providers Care Structural Engineer Name Role Phone Radu Gaona ND Primary Care Provider [phone] Reason for Visit * Reason Onset Date Comments Appointment 01/18/2018 Encounter Details Date Type Department Care Team (Late st Contact Info) Description 01/18/2018 Telephone Ophthalmology at [facility] [place] [phone] Kayli Hendricks, MIRELLA [facility] [place] [address] Appointment Social History Tobacco Use Types Packs/Day Years Used Date Smoking Tobacco: Never Assessed Sex and Gender Information Value Date Recorded Sex Assigned at Not on file Gender Identity Not on file Sexual Orientation Not on file documented as of this encounter Miscellaneous Notes * Telephone Encounter - Daksha Coyle - 01/18/2018 3:31 PM EDT Patient called, scheduled fro CL training on 01.26.18 at 2:00pm. Ok date and time per Jon. * Telephone Encounter - Cristal Mccray - 01/18/2018 3:12 PM EDT Need to TAO CL training: CL Training Level lll = $150.00 to be pd @ Admissions, receipt brought to appt, copied and given to Jon Alexander. CL's located 4i under copier by Cristal. KLJ pt. documented in this encounter Plan of Treatment Not on file documented as of this encounter Visit Diagnoses Not on filedocumented in this encounter Care Teams Structural Engineer Relationship Specialty Start Date End Date Radu Gaona ND [address] [place] [address] PCP - General Naturopathic Medicine 06/14/16 documented as of this encounter
--- OUTSIDE RECORDS SUMMARY | 2023-11-24 02:21 | XMS_ITS | Encounter Summary ---
Author Organization Replaced By [facility] Address [facility] [place] [address] Care Team Providers Care Radiologic Technologist Chief Name Role Phone Radu Gaona ND Primary Care Provider [phone] Reason for Visit * Reason Comments Shortness of Breath Encounter Details Date Type Department Care Team (Late st Contact Info) Description 06/29/2018 3:52 PM EDT - 06/29/2018 4:56 PM EDT [place] [address] Yoselyn Landeros MD [facility] [place] [address] Anxiety; Panic attack Discharge Disposition: Home Social History Tobacco Use Types Packs/Day Years Used Date Smoking Tobacco: Never Smokeless Tobacco: Never Alcohol Use Standard Drinks/Week Comments No 0 (1 standard drink = 0.6 oz pur e alcohol) Sex and Gender Information Value Date Recorded Sex Assigned at Not on file Gender Identity Not on file Sexual Orientation Not on file documented as of this encounter Last Filed Vital Signs Vital Sign Reading [...] - - Body Mass Index - - documented in this encounter Discharge Instructions * Discharge Instructions* Carmen Dudley MD - 06/29/2018 4:41 PM EDT Genoveva Gonzalez was seen in the ED for evaluation of shortness of breath. Her exam was normal and theshortness of breath was felt to be due to anxiety. For this feeling in the future, it is important to practice deep breathing exercises. Please see below for an example of how to do this. The 4-7-8 breathing exercise is utterly simple, takes almost no time, requires no equipment and canbe done anywhere. Although you can do the exercise in any position, sit with your back straight while learning the exercise. Place the tip of your tongue against the ridge of tissue just behind your upper front teeth, and keep it there through the entire exercise. You will be exhaling through your mouth around your tongue; try pursing your lips slightly if this seems awkward. Exhale completely through your mouth, making a whoosh sound. Close your mouth and inhale quietly through your nose to a mental count of four. Hold your breath for a count of seven. Exhale completely through your mouth, making a whoosh sound to a count of eight. This is one breath. Now inhale again and repeat the cycle three more times for a total of four breaths. * Attachments The following attachments cannot be sent through Care Everywhere. * Panic Attacks: Pediatric (Gabonese) documented in this encounter ED Notes * Chester Lutz RN - 06/29/2018 4:22 PM EDT Pt states she feels her SOB is about the same as when she arrived, lungs CTA bi lat, abdomin soft, non tender with + BS. Dr Dudley has been in to see pt, pt's mother @ her side, call schulz in reach. * Yoselyn Landeros MD - 06/29/2018 4:16 PM EDT ED ATTENDING BRIEF NOTE The patient was seen in conjunction with Dr. Carmen Dudley, the resident physician. I have independently performed the archibald portions of the history and physical exam. I have discussed the details of the case with the resident and agree with the assessment and plan as described below. In summary, this is a 18 y.o. female presenting with shortness of breath. While in the waiting roomat a psychology office (waiting for her brother's appointment) earlier today Destjessica began feeling short of breath. There was a dog in the office, and Genoveva has a history of an allergy to dogs. The family subsequently went out to lunch. In the car on the way home Destee began complaining of worsening shortness of breath. Per mom Destee began breathing fast and seemed anxious. Mom gave her 3 puffsof an old albuterol inhaler (prescribed for mom in 2005), after which she had some improvement. Genoveva continues to feel that it's difficult to get air in, and reports chest tightness with deep inspiration. She denies palpitations/irregular heart beat at any time. She did not experience LOC/syncope. She has no prior h/o asthma/RAD or albuterol use. She has had no fevers, rhinorrhea/congestion, sore throat. Father was recently hospitalized, which per mom has been traumatic for Destee. PMH: - Allergy to dogs - sneezing, no h/o SOB FH: Mother has environmental allergies. Additional pertinent physical exam: Vitals: Patient Vitals for the past 24 hrs: BP Temp Temp src Pulse Resp SpO2 Weight 06/29/18 1447 112/48 36.7 ??C (98.1 ??F) Oral 75 20 100 % 52.5 kg (115 lb 12.8 oz) Weight: Patient Vitals for the past 168 hrs: Weight 06/29/18 1447 52.5 kg (115 lb 12.8 oz) General - awake, alert, in no acute distress; able to read a full sentence without difficulty Head - normocephalic/atraumatic Eyes - pupils equal, round, and reactive to light, extraocular movements intact Nose - no rhinorrhea Oropharynx - no lip or tongue swelling, moist mucous membranes, no oral lesions, no tonsillar enlargement, erythema or exudate, uvula midline Neck - supple, full ROM, no lymphadenopathy, no meningismus Cardiovascular - regular rate and rhythm, no murmurs/rubs/gallops Pulmonary - lungs clear to auscultation bilaterally, good air movement throughout, no wheeze, no crackles/rales, no retractions, no grunting/flaring, no tracheal tug Chest wall - no TTP Abdomen - soft, nontender/nondistended, no rebound/guarding, no hepatosplenomegaly Extremities - warm and well perfused, cap refill < 2 sec Skin - no rashes, no petechiae or purpura Neuro - CN II-XII intact, strength 5/5 throughout ED course: Nursing notes and vitals were reviewed by me. Past notes in [facility] were reviewed by me. Assessment and plan: Genoveva Gonzalez is a 18 y.o. female with h/o dog allergy presenting with subjective SOB in the setting of stress (father's recent hospitalization) as well as exposure to a dog. Pt is afebrile with normal VS, including normal RR and SpO2 on RA. She is well-appearing with no airway swelling, no respiratory distress, no wheeze to suggest acute bronchospasm. Although symptoms may have represented an allergic reaction to the dog exposure, her symptoms worsened hours after that exposure while in the family's car. It is more likely that symptoms are due to panic/anxiety, possibly related to father's recent hospitalization. Plan: - Breathing exercises to help slow breathing if this happens again - Follow up with PCP Reviewed indications to seek emergent medical care. All questions were answered, and patient/motherexpressed understanding of the plan. Disposition: home with mother Diagnosis: panic attack Yoselyn Landeros MD 06/30/18 1017 * Carmen Dudley MD - 06/29/2018 4:01 PM EDT Pediatric ED Resident Note Name: Genoveva Gonzalez : 2000 Chief Complaint Patient presents with ??? Shortness of Breath HPI: Genoveva Gonzalez is a 18 y.o. female who presents for shortness of breath. Per Genoveva and her mom, this all started earlier when at a doctors office in [place]. She was in the waiting room when sheall of a sudden felt short of breath. Genoveva describes it as feeling like it is difficult to get air in. She denies any overt chest pain but does state the more she tries to take a deep breath, the tighter her chest feels. Mom states that when this happened she did give her 3 puffs of an old albuterol inhaler which seemed to help. (The inhaler belonged to mom and was from 2005.) She also encouraged Destee to focus on reading to see if this took her mind off of it. There was a dog in the office at the time and mom does state she has a history of allergies (sneezing) but not this. There is no history of asthma in Destee or in her family. Destee denies feeling anxious or worried about anything but mom states that this has all happened in the context of Dad being recently discharged from the hospital for A fib, and still having difficulty breathing. When this happened, they were at a psychology visit for the brother. Review of Systems Constitutional: Negative for fatigue and fever. HENT: Negative for congestion, facial swelling, rhinorrhea, sneezing, sore throat, trouble swallowing and voice change. Respiratory: Positive for chest tightness and shortness of breath. Cardiovascular: Positive for chest pain. Negative for palpitations. Gastrointestinal: Negative for nausea and vomiting. Musculoskeletal: Negative for arthralgias and myalgias. Skin: Negative for color change and rash. Neurological: Negative. Psychiatric/Behavioral: The patient is nervous/anxious. Physical Exam Constitutional: She is oriented to person, place, and time. She appears well- developed and well-nourished. No distress. HENT: Head: Normocephalic and atraumatic. Mouth/Throat: Oropharynx is clear and moist. Eyes: Pupils are equal, round, and reactive to light. Conjunctivae are normal. Neck: Normal range of motion. Neck supple. Cardiovascular: Normal rate, regular rhythm, normal heart sounds and intact distal pulses. No murmur heard. Pulmonary/Chest: Effort normal and breath sounds normal. No stridor. No respiratory distress. She has no wheezes. She exhibits no tenderness. Abdominal: Soft. Bowel sounds are normal. She exhibits no distension. Musculoskeletal: Normal range of motion. Negative swelling of bilateral calves. Neurological: She is alert and oriented to person, place, and time. She exhibits normal muscle tone. Skin: Skin is warm. Capillary refill takes less than 2 seconds. Psychiatric: She has a normal mood and affect. ED course: Examined with Pedi ED attending. Monitored pulse ox. Important studies: None Assessment & Plan: Genoveva Gonzalez is a 18 y.o. female previously healthy who presents for evaluation of shortness of breat. Her exam is completely normal and her saturation is 100% on room air. She seems to have quite a bit of anxiety lately especially with the most recent events in her family with her dad being recently admitted to the hospital. Discussed this with family and recommended deepbreathing exercises, who felt comfortable with this. Diagnosis: Panic attack Dispo: Home with mom Carmen Dudley MD Resident 06/29/18 4605 documented in this encounter Plan of Treatment Not on file documented as of this encounter Visit Diagnoses Diagnosis Anxiety Anxiety state, unspecified Panic attack Panic disorder without agoraphobia documented in this encounter Care Teams Radiologic Technologist Chief Relationship Specialty Start Date End Date Radu Gaona ND [address] [place] [address] PCP - General Naturopathic Medicine 06/14/16 documented as of this encounter
--- OUTSIDE RECORDS SUMMARY | 2023-11-24 02:22 | XMS_ITS | Encounter Summary ---
Author Organization [facility] Address [facility] [place] [address] Care Team Providers Care Service Agent Name Role Phone Jacquelyn Pacheco MD Primary Care Provider [phone] Reason for Visit * Reason Comments Eye Problem ~9 month check, acco modative ET. Encounter Details Date Type Department Care Team (Latest Contact Info) Description 01/31/2012 11:15 AM EDT Office [place] [address] Elda Ulloa MD [facility] [place] [address] Accommodative esotropia (Primary Dx); Hyperopia; Amblyopia Discharge Disposition: Home Social History Tobacco Use Types Packs/Day Years Used Date Smoking Tobacco: Never Assessed Sex and Gender Information Value Date Recorded Sex Assigned at Not on file Gender Identity Not on file Sexual Orientation Not on file documented as of this encounter Progress Notes * Elda Ulloa MD - 01/31/2012 1:23 PM EDT Genoveva Gonzalez is a 11 y.o. female with: 1. 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 Excellent response to bifocals, good high placement. -H/o amblyopia OS. Improved vision again today, almost equal. Plan to taper patching - 2hr/day x 1 month; 1hr/day x 1 month; then stop. -Discussed goal to wean bifocal over the following years if possible, but still with large ET' at near without bifocal add and unable to wean at this time. -F/u with Pinky Iglesias in 6 months to assess alignment and ensure no regression off patching. Check stereo. ELDA ULLOA MD documented in this encounter Nursing Notes * 01/31/2012 11:15 AM EDT >> ELDA ULOLA MD TueJan 31, 2012 1:24 PM 9 mon f/u for accom ET with high AC/A. Wears glasses with bifocals FT, no complaints. Grandfather sees straight eyes, states that she usesthe bifocal. Patching 4hr/day, gets up at 5am every day to wear, uses patch pals. >> ASPEN TURPIN TueJan 31, 2012 11:30 AM Pt reports no problems, patches OS 4 hours a day. Third grade, doing well. documented in this encounter Plan of Treatment Not on file documented as of this encounter Visit Diagnoses Diagnosis Accommodative esotropia- Primary Accommodative component in esotropia Hyperopia Hypermetropia Amblyopia Amblyopia, unspecified documented in this encounter Care Teams Service Agent Relationship Specialty Start Date End Date Jacquelyn Pacheco MD [address] [place] [address] PCP - General 07/15/10 06/13/16 documented as of this encounter
--- OUTSIDE RECORDS SUMMARY | 2023-11-24 02:22 | XMS_ITS | Encounter Summary ---
Author Organization Formerly [facility] [place] [address] Care Team Providers Care Equity Sales Assistant Name Role Phone Jacquelyn Pacheco MD Primary Care Provider [phone] Reason for Visit * Reason Comments Strabismus Orthoptic f/u, here with parents Encounter Details Date Type Department Care Team (Latest Contact Info) Description 07/17/2015 8:00 AM EDT Office Visit Ophthalmology at [facility] [place] [address] Pinky Iglesias CO Accommodative esotropia Social History Tobacco Use Types Packs/Day Years Used Date Smoking Tobacco: Never Assessed Sex and Gender Information Value Date Recorded Sex Assigned at Not on file Gender Identity Not on file Sexual Orientation Not on file documented as of this encounter Progress Notes * Pinky Iglesias CO - 07/17/2015 11:44 AM EDT Genoveva is a 15 year old female with an accommodative esotropia, excellent alignment without bifocaladd. The bulk of time for this appointment spent trying to determine if the incorrect axis is causing the general complaints about the new glasses. From exam note today: (Vision repeated with Rx in trial frame with axis as indicated on Final Rx. Minimal change in acuity. Head tilt resolved with trial frame.) Plan: Copy of last Rx to be sent to family. Mother will have correction made to glasses. documented in this encounter Plan of Treatment Not on file documented as of this encounter Procedures Procedure Name Priority Date/Time Associated Diagnosis Comments SENSORIMOTOR EXAM Routine 07/17/2015 11: 49 AM EDT Accommodative esotropia documented in this encounter Results * SENSORIMOTOR EXAM [OK SPECIAL EYE EXAM] - OU- BOTH EYES (07/17/2015 11:49 AM EDT) Anatomical Region Laterality Modality Other Narrative 07/17/2015 11:49 AM EDT See orthoptic note Elda Gomez MD OPHTHALMOLOGY SERVIC ES ORDERABLES documented in this encounter Visit Diagnoses Diagnosis Accommodative esotropia Accommodative component in esotropia documented in this encounter Care Teams Equity Sales Assistant Relationship Specialty Start Date End Date Jacquelyn Pacheco MD [address] [place] [address] PCP - General 07/15/10 06/13/16 documented as of this encounter
--- OUTSIDE RECORDS SUMMARY | 2023-11-24 02:22 | XMS_ITS | Encounter Summary ---
Author Organization [facility] [place] [address] Care Team Providers Care Talent Management Manager Name Role Phone Radu Gaona ND Primary Care Provider [phone] Encounter Details Date Type Department Care Team (Late st Contact Info) Description 12/02/2017 [place] [address] Elda Gomez MD [facility] [place] [address] Social History Tobacco Use Types Packs/Day Years Used Date Smoking Tobacco: Never Assessed Sex and Gender Information Value Date Recorded Sex Assigned at Not on file Gender Identity Not on file Sexual Orientation Not on file documented as of this encounter Miscellaneous Notes * Telephone Encounter - Lizzeth Dillard COT - 01/02/2018 7:09 PM EDT See 12/30/17 phone note * Telephone Encounter - Daksha Coyle - 12/28/2017 1:11 PM EDT Mom called to speak to Lizzeth and to see why no one has called her back. Lizzeth- Can you please call mom back? * Telephone Encounter - Lizzeth Dillard COT - 12/23/2017 9:55 AM EDT Placed on list for EMS to review * Telephone Encounter - Shea Ledbetter - 12/02/2017 2:37 PM EDT Spoke to patients mother Pinky. Calling to get patient scheduled and discuss issues that patient is having. When I asked what the issues were she said the usual. Please call her back at [phone]. Thanks documented in this encounter Plan of Treatment Not on file documented as of this encounter Visit Diagnoses Not on filedocumented in this encounter Care Teams Talent Management Manager Relationship Specialty Start Date End Date Radu Gaona ND [address] [place] [address] PCP - General Naturopathic Medicine 06/14/16 documented as of this encounter
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
--- OUTSIDE RECORDS SUMMARY | 2023-11-24 02:22 | XMS_ITS | Encounter Summary ---
Author Organization [facility] [place] [address] Care Team Providers Care Nurse Case Management Name Role Phone Radu Gaona ND Primary Care Provider [phone] Encounter Details Date Type Department Care Team (Late st Contact Info) Description 01/04/2018 [place] [address] Elda Gomez MD [facility] [place] [address] Social History Tobacco Use Types Packs/Day Years Used Date Smoking Tobacco: Never Assessed Sex and Gender Information Value Date Recorded Sex Assigned at Not on file Gender Identity Not on file Sexual Orientation Not on file documented as of this encounter Miscellaneous Notes * Telephone Encounter - Lizzeth Dillard COT - 01/05/2018 10:20 AM EDT EMS reviewed CL info and agrees with KJ. Notified mom * Telephone Encounter - Lizzeth Dillard COT - 01/04/2018 3:26 PM EDT Mom would like reassurance from EMS and Pinky that CL rx is correct and that they are a good ideafor Destee. They believe Destee is ready for contacts but are concerned that with the magnitude of her eye problems they may not be a good idea. Advised I would have EMS review and I would report back documented in this encounter Plan of Treatment Not on file documented as of this encounter Visit Diagnoses Not on filedocumented in this encounter Care Teams Nurse Case Management Relationship Specialty Start Date End Date Radu Gaona ND [address] [place] [address] PCP - General Naturopathic Medicine 06/14/16 documented as of this encounter
--- OUTSIDE RECORDS SUMMARY | 2023-11-24 02:22 | XMS_ITS | Encounter Summary ---
Author Organization [facility] [place] [address] Care Team Providers Care Swine Extension Field Specialist Name Role Phone Radu Gaona ND Primary Care Provider [phone] Reason for Visit * Reason Onset Date Comments Questions 01/04/2018 Encounter Details Date Type Department Care Team (Late st Contact Info) Description 01/04/2018 Telephone Ophthalmology at [facility] [place] [address] Kayli Hendricks, [facility] [place] [address] Questions Social History Tobacco Use Types Packs/Day Years Used Date Smoking Tobacco: Never Assessed Sex and Gender Information Value Date Recorded Sex Assigned at Not on file Gender Identity Not on file Sexual Orientation Not on file documented as of this encounter Miscellaneous Notes * Telephone Encounter - Elda Smith - 01/04/2018 11:46 AM EDT Pt & Mother have called wanting some answers about CL training (cost, appt, process). Please call the pt & mother at home [phone]. documented in this encounter Plan of Treatment Not on file documented as of this encounter Visit Diagnoses Not on filedocumented in this encounter Care Teams Swine Extension Field Specialist Relationship Specialty Start Date End Date Radu Gaona ND [address] [place] [address] PCP - General Naturopathic Medicine 06/14/16 documented as of this encounter
--- OUTSIDE RECORDS SUMMARY | 2023-11-24 02:22 | XMS_ITS | Encounter Summary ---
Author Organization [facility] Address [facility] [place] [address] Care Team Providers Care Credit Risk Management Director Name Role Phone Jacquelyn Pacheco MD Primary Care Provider [phone] Reason for Visit * Reason Comments Strabismus Here with parents an d younger brother Dae Encounter Details Date Type Department Care Team (Latest Contact Info) Description 01/08/2013 8:30 AM EDT [place] [address] Elda Ulloa MD [facility] [place] [address] Accommodative esotropia (Primary Dx); Hyperopia Discharge Disposition: Home Social History Tobacco Use Types Packs/Day Years Used Date Smoking Tobacco: Never Assessed Sex and Gender Information Value Date Recorded Sex Assigned at Not on file Gender Identity Not on file Sexual Orientation Not on file documented as of this encounter Progress Notes * Elda lUloa MD - 01/08/2013 10:53 AM EDT Genoveva Gonzalez is a 12 y.o. female with: 1. Accommodative esotropia with high AC/A, s/p BMRc age 6. Excellent response to bifocals, good high placement. -Updated Rx given with high bifocal seg specified. -H/o amblyopia OS, now with near equal vision without regression off patching. -Discussed goal to wean bifocal over the following years if possible, but still with large ET' at near without bifocal add and unable to wean at this time. -F/u with Pinky Iglesias in 6 months. ELDA ULLOA MD documented in this encounter Plan of Treatment Not on file documented as of this encounter Visit Diagnoses Diagnosis Accommodative esotropia- Primary Accommodative component in esotropia Hyperopia Hypermetropia documented in this encounter Care Teams Credit Risk Management Director Relationship Specialty Start Date End Date Jacquelyn Pacheco MD [address] [place] [address] PCP - General 07/15/10 06/13/16 documented as of this encounter
--- OUTSIDE RECORDS SUMMARY | 2023-11-24 02:22 | XMS_ITS | Encounter Summary ---
Author Organization [facility] Address [facility] [place] [address] Care Team Providers Care Service Sprinkler Helper Name Role Phone Jacquelyn Pacheco MD Primary Care Provider [phone] Reason for Visit * Reason Comments Strabismus Encounter Details Date Type Department Care Team (Latest Contact Info) Description 10/28/2014 2:45 PM EDT Office Visit Ophthalmology at [facility] [place] [address] Elda Ulloa MD [facility] [place] [place] [address] Accommodative esotropia; Hyperopia, bilateral Discharge Disposition: Home Social History Tobacco Use Types Packs/Day Years Used Date Smoking Tobacco: Never Assessed Sex and Gender Information Value Date Recorded Sex Assigned at Not on file Gender Identity Not on file Sexual Orientation Not on file documented as of this encounter Progress Notes * Elda Ulloa MD - 10/28/2014 4:13 PM EDT Genoveva Gonzalez is a 14 y.o. female with: 1. Accommodative esotropia with history of high AC/A, s/p Rc age 6. Less near pattern. Able to d/c bifocal with less distance-near discrepency. Discussed possible increased ET and symptoms at near,in which case will add back progressive add and wean out more slowly. 2. Hyperopic astigmatism OU. Over-plused OD with decreased vision. Good Va with appropriate Rx. Plan: Updated Rx given; no bifocal. F/u with Pinky Iglesias in 4 months. ELDA ULLOA MD documented in this encounter Plan of Treatment Not on file documented as of this encounter Visit Diagnoses Diagnosis Accommodative esotropia Accommodative component in esotropia Hyperopia, bilateral documented in this encounter Care Teams Service Sprinkler Helper Relationship Specialty Start Date End Date Jacquelyn Pacheco MD [address] [place] [address] PCP - General 07/15/10 06/13/16 documented as of this encounter
--- OUTSIDE RECORDS SUMMARY | 2023-11-24 02:22 | XMS_ITS | Encounter Summary ---
Author Organization [facility] [place] [address] Care Team Providers Care Manager Small Business Name Role Phone Rdau Gaona ND Primary Care Provider [phone] Encounter Details Date Type Department Care Team (Latest Contact Info) Description 06/14/2016 1:00 PM EDT Office Visit [place] [address] Pinky Iglesias CO Accommodative esotropia Social History Tobacco Use Types Packs/Day Years Used Date Smoking Tobacco: Never Assessed Sex and Gender Information Value Date Recorded Sex Assigned at Not on file Gender Identity Not on file Sexual Orientation Not on file documented as of this encounter Progress Notes * Pinky Iglesias CO - 06/14/2016 1:00 PM EDT Genoveva Gonzalez is a 16 year old female s/p early surgery for esotropia, Dr. Jerica Shoemaker. 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 Genoveva is interested in trying contacts in the future. Plan: Return to see Dr. Gomez in 1 year. documented in this encounter Plan of Treatment Not on file documented as of this encounter Procedures Procedure Name Priority Date/Time Associated Diagnosis Comments SENSORIMOTOR EXAM Routine 06/14/2016 2:5 3 PM EDT Accommodative esotropia documented in this encounter Results * SENSORIMOTOR EXAM [[place] SPECIAL EYE EXAM] - OU- BOTH EYES (06/14/2016 2:53 PM EDT) Anatomical Region Laterality Modality Other Narrative 06/14/2016 2:53 PM EDT See orthoptic note Elda Gomez MD OPHTHALMOLOGY SERVIC ES ORDERABLES documented in this encounter Visit Diagnoses Diagnosis Accommodative esotropia Accommodative component in esotropia documented in this encounter Care Teams Manager Small Business Relationship Specialty Start Date End Date Radu Gaona ND [address] [place] [address] PCP - General Naturopathic Medicine 06/14/16 documented as of this encounter
--- OUTSIDE RECORDS SUMMARY | 2023-11-24 02:22 | XMS_ITS | Encounter Summary ---
Author Organization [facility] [place] [address] Care Team Providers Care Floor Runner Name Role Phone Radu Gaona ND Primary Care Provider [phone] Reason for Visit * Reason Onset Date Comments Other 12/01/2017 Requesting call back from Sintia Encounter Details Date Type Department Care Team (Late st Contact Info) Description 12/01/2017 [place] [address] Elda Gomez MD [facility] [place] [address] Other (Requesting call back from Sintia) Social History Tobacco Use Types Packs/Day Years Used Date Smoking Tobacco: Never Assessed Sex and Gender Information Value Date Recorded Sex Assigned at Not on file Gender Identity Not on file Sexual Orientation Not on file documented as of this encounter Miscellaneous Notes * Telephone Encounter - Lizzeth Dillard COT - 01/02/2018 7:08 PM EDT See 12/30/17 phone note * Telephone Encounter - Urmila Garrido COT - 12/01/2017 11:40 AM EDT Mother states via VM: hoping to get a call back from Pinky. Did not indicate questions/concerns. Pinky Iglesias CO at 06/14/2016 ??1:00 PM ? Author Type: Other Clinician Status: Signed Side Show Entertainer: Pinky Iglesias CO (Other Clinician) ?? Genoveva Gonzalez is a 16 year old female s/p early surgery for esotropia, Dr. Jerica Shoemaker. 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 ?? Genoveva is interested in trying contacts in the future. ?? Plan: Return to see Dr. Gomez in 1 year. documented in this encounter Plan of Treatment Not on file documented as of this encounter Visit Diagnoses Not on filedocumented in this encounter Care Teams Floor Runner Relationship Specialty Start Date End Date Radu Gaona ND [address] [place] [address] PCP - General Naturopathic Medicine 06/14/16 documented as of this encounter
--- OUTSIDE RECORDS SUMMARY | 2023-11-24 02:22 | XMS_ITS | Encounter Summary ---
Author Organization [facility] Address [facility] [place] [address] Care Team Providers Care Child Care Center Administrator Name Role Phone Jacquelyn Pacheco MD Primary Care Provider [phone] Reason for Visit * Reason Comments Strabismus here with guardian ( grandfather) Blurred Vision Encounter Details Date Type Department Care Team (Latest Contact Info) Description 01/13/2016 8:00 AM EDT Office [place] [address] Elda Ulloa MD [facility] [place] [address] Accommodative esotropia; Hyperopia, bilateral Social History Tobacco Use Types Packs/Day Years Used Date Smoking Tobacco: Never Assessed Sex and Gender Information Value Date Recorded Sex Assigned at Not on file Gender Identity Not on file Sexual Orientation Not on file documented as of this encounter Progress Notes * Elda Ulloa MD - 01/13/2016 8:00 AM EDT Genoveva Gonzalez is a 15 y.o. female with: 1. 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 Shoemaker. Nice alignment with no real residual near ET' without bifocal over past year. 2. Hyperopic astigmatism OU. Recent failed vision screen at PCP, though with equal stable vision OU today. Improved with slightly less plus and she subjectively prefers lower power. Plan: Updated Rx given for less plus OU. F/u with Pinky Iglesias in 4 months, EMS in 1 year. ELDA ULLOA MD 01/13/2016 documented in this encounter Plan of Treatment Not on file documented as of this encounter Visit Diagnoses Diagnosis Accommodative esotropia Accommodative component in esotropia Hyperopia, bilateral documented in this encounter Care Teams Child Care Center Administrator Relationship Specialty Start Date End Date Jacquelyn Pacheco MD [address] [place] [address] PCP - General 07/15/10 06/13/16 documented as of this encounter
--- OUTSIDE RECORDS SUMMARY | 2023-11-24 02:22 | XMS_ITS | Encounter Summary ---
Author Organization [facility] [place] [address] Care Team Providers Care Aircraft Engine Mechanic Name Role Phone Radu Gaona ND Primary Care Provider [phone] Reason for Visit * Reason Onset Date Comments Appointment 12/30/2017 Encounter Details Date Type Department Care Team (Late st Contact Info) Description 12/30/2017 Telephone [place] [phone] Elda Gomez MD [facility] [place] [address] Appointment Social History Tobacco Use Types Packs/Day Years Used Date Smoking Tobacco: Never Assessed Sex and Gender Information Value Date Recorded Sex Assigned at Not on file Gender Identity Not on file Sexual Orientation Not on file documented as of this encounter Miscellaneous Notes * Telephone Encounter - Lizzeth Dillard COT - 01/02/2018 7:09 PM EDT Called parents to advise BBS is out sick and we needs to reschedule. Apologized for the multiple messages left and no return calls. Also explained that BBS is not the correct provider for Destee at this time. BBS can not rx glasses or refract and pt has not been dilated since 2016 therefore BBS cannot see Mom was understanding about bump, my delay in returning calls and needing to see a provider. Father move pts to make this appt and mom does not want to push out any further. Offered appt with Dr. Hendricks tomorrow at 3:30p. Mom very pleased with solution. * Telephone Encounter - Margie Naylor COT - 12/30/2017 3:54 PM EDT Mrs Devi Gonzalez called on behalf of Genoveva to ask about why nobody had gotten back to her about aneeded follow up appointment for Destee. She mentioned that she left several messages on Lizzeth's line. I apologized for the delay in communication and asked if Genoveva had noticed any changes in her vision. Mrs Gonzalez said that Genoveva had failed her vision test at the [facility] for her car driver's license while wearing her glasses, but passed it without glasses. Mrs Gonzalez asked if it would be possible to see Sintia first to see if Dest[facility] Rx might have a change inher prescription. I offered her a 3pm on January 03 which she took. documented in this encounter Plan of Treatment Not on file documented as of this encounter Visit Diagnoses Not on filedocumented in this encounter Care Teams Aircraft Engine Mechanic Relationship Specialty Start Date End Date Radu Gaona ND [address] [place] [address] PCP - General Naturopathic Medicine 06/14/16 documented as of this encounter
--- OUTSIDE RECORDS SUMMARY | 2023-11-24 02:22 | XMS_ITS | Encounter Summary ---
Author Organization [facility] [place] [address] Care Team Providers Care Security Program Manager Name Role Phone Jacquelyn Pacheco MD Primary Care Provider Reason for Visit * Reason Onset Date Comments Other 12/25/2015 Pt's guardian alaniz s questions for BS about her glasses. She would like Pinky to call her back as soon as possible. Encounter Details Date Type Department Care Team (Late st Contact Info) Description 12/25/2015 Telephone [place] [address] Pinky Iglesias CO Other (Pt's guardian has questions for BS about her glasses. She would like Pinky to call her back as soon as possible.) Social History Tobacco Use Types Packs/Day Years Used Date Smoking Tobacco: Never Assessed Sex and Gender Information Value Date Recorded Sex Assigned at Not on file Gender Identity Not on file Sexual Orientation Not on file documented as of this encounter Miscellaneous Notes * Telephone Encounter - Sivan Duenas - 12/25/2015 11:06 AM EDT Pt's guardian has questions for BS about her glasses. She would like Pinky to call her back as soon as possible. documented in this encounter Plan of Treatment Not on file documented as of this encounter Visit Diagnoses Not on filedocumented in this encounter Care Teams Security Program Manager Relationship Specialty Start Date End Date Jacquelyn Pacheco MD [address] [place] [address] [place] [address] PCP - General 07/15/10 06/13/16 documented as of this encounter
--- OUTSIDE RECORDS SUMMARY | 2023-11-24 02:22 | XMS_ITS | Encounter Summary ---
Author Organization [facility] [place] [address] Care Team Providers Care Nanotechnician Name Role Phone Radu Gaona ND Primary Care Provider [phone] Reason for Visit * Reason Comments Eye Exam Encounter Details Date Type Department Care Team (Latest Contact Info) Description 01/03/2018 3:30 PM EDT Office Visit Ophthalmology at [facility] [place] [address] Kayli Hendricks, [place] [address] Accommodative esotropia; Hypermetropia of both eyes Social History Tobacco Use Types Packs/Day Years Used Date Smoking Tobacco: Never Assessed Sex and Gender Information Value Date Recorded Sex Assigned at Not on file Gender Identity Not on file Sexual Orientation Not on file documented as of this encounter Progress Notes * Kayli Hendricks, OD - 01/03/2018 3:30 PM EDT Genoveva Gonzalez is a 17 y.o. female who presented today for comprehensive eye exam and updated glasses Rx. Genoveva is an established patient with Dr. Gomez and Pinyk. Last exam with Dr. Gomez 01/2016. Last seen by Pinky 06/14/16. Failed DMV vision screening with current 2 year old SVL glasses on (passed with glasses off). Excellent vision (OD 20/25+, OS 20/20) and alignment at distance and near with updated spec Rx for SVL today. Patient is interested in CLs. Excellent dilated ocular health both eyes. 1) Accommodative esotropia with history of high AC/A, s/p BMRc age [address] Shoemaker * H/o patching OS [id number] w/ excellent compliance * H/o bifocals until 2014 (excellent control with SVL since then) * Excellent alignment with no real residual near ET' without bifocal 2) Hyperopic astigmatism OU * Improved visual acuity with less plus OS and she subjectively prefers lower power * Excellent alignment at distance and near through updated Rx in trial frame * Almost equal acuity today, h/o amblyopia OD 3) Pt expressed interest in contact lens wear, new wearer. * Discussed Insertion & Removal CL training with associated cost of up to $200 * Discussed available CL replacement schedules (1 day, 2 & 4-week) recommend Acuvue Oasys Astigmatism (2 week replacement) * Patient will call to schedule CL training (pt and mother aware that this training will be with mytechnicianJon) * Contact lenses may help relieve accommodative demand Plan: Updated Rx given with excellent alignment at distance and near. F/u with Dr. Gomez in 6 months, sooner PRN. Kayli Hendricks, MIRELLA 01/03/2018 documented in this encounter Plan of Treatment Not on file documented as of this encounter Visit Diagnoses Diagnosis Accommodative esotropia Accommodative component in esotropia Hypermetropia of both eyes Hypermetropia documented in this encounter Care Teams Nanotechnician Relationship Specialty Start Date End Date Radu Gaona ND [address] [place] [address] PCP - General Naturopathic Medicine 06/14/16 documented as of this encounter
--- OUTSIDE RECORDS SUMMARY | 2023-11-24 02:22 | XMS_ITS | Encounter Summary ---
Author Organization [facility] [place] [address] Care Team Providers Care Deployment Manager Name Role Phone Jacquelyn Pacheco MD Primary Care Provider [phone] Reason for Visit * Reason Comments Strabismus Here with parents an d younger brother Dae Amblyopia Encounter Details Date Type Department Care Team (Latest Contact Info) Description 07/17/2012 1:00 PM EDT Office Visit Ophthalmology at [facility] [place] [phone] Pinky Iglesias CO Accommodative component in esotropia (Primary Dx); Amblyopia of right eye Discharge Disposition: Home Social History Tobacco Use Types Packs/Day Years Used Date Smoking Tobacco: Never Assessed Sex and Gender Information Value Date Recorded Sex Assigned at Not on file Gender Identity Not on file Sexual Orientation Not on file documented as of this encounter Progress Notes * Pinky Iglesias CO - 07/17/2012 2:09 PM EDT Genoveva is a 12 year female s/p [employer] 09-07 with a residual PAT and mild amblyopia. There is a large non accommodative RET when looking through the upper segment at near. Parents think this may be happening more often. Also Stereopsis has declined. A review of Genoveva's chart indicates stereo at 5/9 dots -, 2/3 animals on 04-15. Not tested on 01-13. Discussed encouraging the use of the bifocal add. Placement seems adequate, high enough, although afull lower segment would be preferred. Due to insurance coverage, new glasses can be updated every two years. Parents will remind Genoveva to lift her chin when reading. (likes to read to younger brother Dae) Alignment was demonstrated with a near target, showing the parents the upper and lower segment movements from esotropia to ortho. Follow up with Dr. Gomez in 6 months, returning sooner if parents note a further change in alignment. documented in this encounter Plan of Treatment Not on file documented as of this encounter Procedures Procedure Name Priority Date/Time Associated Diagnosis Comments SENSORIMOTOR EXAM Routine 07/17/2012 2:2 8 PM EDT Accommodative component in esotropia Amblyopia of right eye documented in this encounter Results * SENSORIMOTOR EXAM [IN SPECIAL EYE EXAM] - OU- BOTH EYES (07/17/2012 2:28 PM EDT) Anatomical Region Laterality Modality Other Narrative 07/17/2012 2:28 PM EDT See Orthoptic note Procedure Note Pinky Iglesias CO - 07/17/2012 See Orthoptic note Elda Gomez MD OPHTHALMOLOGY SERVIC ES ORDERABLES documented in this encounter Visit Diagnoses Diagnosis Accommodative component in esotropia- Primary Amblyopia of right eye Amblyopia, unspecified documented in this encounter Care Teams Deployment Manager Relationship Specialty Start Date End Date Jacquelyn Pacheco MD [address] [place] [address] [place] [address] PCP - General 07/15/10 06/13/16 documented as of this encounter
--- OUTSIDE RECORDS SUMMARY | 2023-11-24 02:22 | XMS_ITS | Encounter Summary ---
Author Organization [facility] [place] [address] Care Team Providers Care Photographer'S Assistant Name Role Phone Jacquelyn Pacheco MD Primary Care Provider [phone] Reason for Visit * Reason Comments Strabismus 3 month Orthoptic f/ u with new glasses and patching therapy Encounter Details Date Type Department Care Team (Late st Contact Info) Description 01/04/2011 9:00 AM EDT Office [place] [phone] Pinky Iglesias CO Amblyopia of right eye (Primary Dx) Discharge Disposition: Home Social History Tobacco Use Types Packs/Day Years Used Date Smoking Tobacco: Never Assessed Sex and Gender Information Value Date Recorded Sex Assigned at Not on file Gender Identity Not on file Sexual Orientation Not on file documented as of this encounter Progress Notes * Pinky Iglesias CO - 01/04/2011 10:03 AM EDT Impression: Residual RE(T) with mild amblyopia Plan: 1.Correct placement of bifocal add 2. Use patch pal 3. Patch OS 3-4 hours daily Return for 3 month f/u with Dr. Gmoez. documented in this encounter Nursing Notes * 01/04/2011 9:00 AM EDT >> [facility] OR Mon Jan 04, 2011 9:51 AM Description:Patient presents with: Strabismus - 3 month Orthoptic f/u with new glasses and patching therapy Location: {Right eye mild amblyopia Duration: {early onset ET with limited occlusion OS prior to BMR 10.5 for 50+ ET ( 12-09 Condition:{Residual mild amblyopia and high AC/A Pain:{ none Associated Symptoms: Patching OS 4 hours daily with black pirate patch, good compliance with a peeking problem at times documented in this encounter Plan of Treatment Not on file documented as of this encounter Visit Diagnoses Diagnosis Amblyopia of right eye- Primary Amblyopia, unspecified documented in this encounter Care Teams Photographer'S Assistant Relationship Specialty Start Date End Date Jacquelyn Pacheco MD [address] [place] [address] PCP - General 07/15/10 06/13/16 documented as of this encounter
--- OUTSIDE RECORDS SUMMARY | 2023-11-24 02:22 | XMS_ITS | Encounter Summary ---
Author Organization [facility] Address [facility] [place] [address] Care Team Providers Care Barrel Washer Name Role Phone Jacquelyn Pacheco MD Primary Care Provider [phone] Reason for Visit * Reason Comments Strabismus Patching OS 4 hours daily. Encounter Details Date Type Department Care Team (Latest Contact Info) Description 04/26/2011 1:45 PM EST Office [place] [address] Elda Ulloa MD [facility] [place] [address] Accommodative esotropia (Primary Dx); Amblyopia Discharge Disposition: Home Social History Tobacco Use Types Packs/Day Years Used Date Smoking Tobacco: Never Assessed Sex and Gender Information Value Date Recorded Sex Assigned at Not on file Gender Identity Not on file Sexual Orientation Not on file documented as of this encounter Progress Notes * Elda Ulloa MD - 04/26/2011 2:40 PM EST Genoveva Gonzalez is an almost 11-y.o. female with: 1. Accommodative esotropia with high AC/A, s/p max Rc age 6. Excellent response to bifocals, goodhigh placement. Microtropia with mild amblyopia, monofixational. -Best vision measured today. Doing very well with patching and they are hesitant to stop, will continue for now and anticipate d/c next visit if stable vision. -Gross stereo demonstrated with bifocal! 2. C/o things look darker with OD. Full color, no red desat, no APD and healthy optic nerves. Likely related to amblyopia OD and/or result of patching OS with dark adaptation with that eye. Plan: -Cont current Rx -Cont patch OS 4hour/day -F/u in 6 months with DFE/CRx. ELDA ULLOA MD documented in this encounter Nursing Notes * 04/26/2011 1:45 PM EST >> ELDA ULLOA MD TueApr 26, 2011 4:50 PM Got new glasses with high seg bifocal. Grandparents see improved alignment with bifocal seg. Destee notices that lights seem brighter with OS than OD. >> ELDA ULLOA MD TueApr 26, 2011 2:40 PM F/u accom ET with high AC/A. >> PINKY GARCIA, CERTIFIED OR TueApr 26, 2011 2:22 PM New concern: When covering Left eye, OD seems combiner, when covering right eye, OS seems darker. >> REBECA AVILES OR TueApr 26, 2011 2:20 PM Grandparents had some difficulty convincing optical shop to fix bifocal segment. Alignment improvedwith bifocal segment. documented in this encounter Plan of Treatment Not on file documented as of this encounter Visit Diagnoses Diagnosis Accommodative esotropia- Primary Accommodative component in esotropia Amblyopia Amblyopia, unspecified documented in this encounter Care Teams Barrel Washer Relationship Specialty Start Date End Date Jacquelyn Pacheco MD [address] [place] [address] PCP - General 07/15/10 06/13/16 documented as of this encounter
== END 2023-11-24 02:40 ==
LOC: DI 02:20
PROVIDERS: PCP Midwife; Visit Provider Midwife
DX: Z34.91 Encounter for supervision of normal pregnancy, unspecified, first trimester (principal); Z3A.01 Less than 8 weeks gestation of pregnancy
CPT/HCPCS: 76801

== ENCOUNTER 2024-03-02 00:16 | Outpatient (CLI) | payer MEDICAID, SELFPAY ==
--- NOTE | 2024-03-02 | DI.US_ITS ---
Exam(s) US OB 2-3 TRIMESTER EXAM: US OB 2-3 TRIMESTER CLINICAL HISTORY: , MOLINA 07/16/24, anatomy scan. TECHNIQUE: Transabdominal obstetrical ultrasound performed. COMPARISON: US US OB 1ST TRIMESTER from 11/24/2023 FINDINGS: Number of fetuses: 1 position: VARIED heart rate: 153bpm Placental location: There is a grade 1 anterior placenta. The placental tip is 5.4 cm from the inter nal os. No evidence of previa. Amniotic fluid index: Amount of fluid is within normal limits. ANATOMICAL SURVEY: Within normal limits. BIOMETRIC DATA: BPD: 5.08cm, 21weeks 3days HC: 18.94cm, 21weeks 2days AC: 16.63cm, 21weeks 5days FL: 3.39cm, 20weeks 5days Cisterna magna: 3.4mm Cerebellum: 1.98cm Lateral ventricle: 0.5 cm EFW: 407.11g, 0.92lb, 79.5% Composite Age: 21weeks 2days MOLINA: 07/11/2024 Heart Rate: 153bpm ANATOMICAL SURVEY: Four-chambered heart: Unremarkable. RVOT: Unremarkable. LVOT: Unremarkable. Left-sided stomach: Unremarkable. urinary bladder: Unremarkable. Bilateral kidneys: Unremarkable. Three-vessel cord: Unremarkable. Cord insertion: Unremarkable. Posterior fossa: Unremarkable. ventricles: Unremarkable. nose/lips: Unremarkable. Palate: Unremarkable. spine: Unremarkable. Two arms and two legs: Unremarkable. IMPRESSION: 1. Single live intrauterine gestation as above. 2. Normal anatomic survey. DATA REPOSITORY:
--- OUTSIDE RECORDS SUMMARY | 2024-03-02 00:18 | XMS_ITS | Clinical Summary ---
Author Organization [facility] Address [address] [place] [address] Care Team Providers Care Co Supervisor Grounds And Landscape Name Role Phone Unavailable Primary Care Provider Unavailabl e Social History Tobacco Use Types Packs/Day Years Used Date Smoking Tobacco: Never Assessed Comments Unknown Sex and Gender Information Value Date Recorded Sex Assigned at Not on file Legal Sex Female 17:08 EST Gender Identity Not on file Sexual Orientation Not on file Plan of Treatment Health Maintenance Due Date Last Done Comments Hepatitis C Screen 2002 Hepatitis B Vaccine (1 of 3 - 19+ 3-dose series) 05/01 COVID-19 Vaccine ( season) 2023
--- OUTSIDE RECORDS SUMMARY | 2024-03-02 00:18 | XMS_ITS | Encounter Summary ---
Author Organization [facility] [place] [address] Care Team Providers Care Cable Engineer Outside Plant Name Role Phone Radu Gaona ND Primary Care Provider [phone] Reason for Visit * Reason Comments Contact Lens Check Encounter Details Date Type Department Care Team (Latest Contact Info) Description 02/27/2018 3:30 PM EST Office Visit Ophthalmology at [facility] [place] [address] Kayli Hendricks, OD [facility] [place] [address] Accommodative esotropia; Hypermetropia of both eyes Social [...] Rx Brand Base Curve Diameter Sphere Cylinder [place] Lens Right Acuvue Oasys Astigmatism 8.6 14.5 [...] lens wear till further notice from an product safety professional. 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 Shoemaker * H/o patching OS 0801-0296 w/ excellent compliance * H/o bifocals until [...] Rx Brand Base Curve Diameter Sphere Cylinder [place] Lens Right Acuvue Oasys Astigmatism 8.6 14.5 [...] Hypermetropia documented in this encounter Care Teams Cable Engineer Outside Plant Relationship Specialty Start Date End Date Radu Gaona ND [address] [place] [address] PCP - General Naturopathic Medicine 06/14/16 documented as of this encounter
--- OUTSIDE RECORDS SUMMARY | 2024-03-02 00:18 | XMS_ITS | Encounter Summary ---
Author Organization [facility] [place] [address] Care Team Providers Care Field Sampling Technician Name Role Phone Radu Gaona ND Primary Care Provider [phone] Encounter Details Date Type Department Care Team (Late st Contact Info) Description 12/02/2017 Tele[place] [address] Elda Gomez MD [facility] [place] [address] Social History Tobacco Use Types Packs/Day Years [...] the usual. Please call her back at [phone]. Thanks documented in this encounter Plan of Treatment Not on file documented as of this encounter Visit Diagnoses Not on filedocumented in this encounter Care Teams Field Sampling Technician Relationship Specialty Start Date End Date Radu Gaona ND [address] [place] [address] PCP - General Naturopathic Medicine 06/14/16 documented as of this encounter
--- OUTSIDE RECORDS SUMMARY | 2024-03-02 00:18 | XMS_ITS | Encounter Summary ---
Author Organization [facility] [place] [address] Care Team Providers Care Warp Hauler Name Role Phone Radu Gaona ND Primary Care Provider [phone] Encounter Details Date Type Department Care Team (Latest Contact Info) Description 06/14/2016 1:00 PM EDT Office [place] [address] Pinky Iglesias CO Accommodative esotropia Social History [...] in this encounter Results * SENSORIMOTOR EXAM [VA SPECIAL EYE EXAM] - OU- BOTH EYES (06/14/2016 2:53 PM EDT) Anatomical Region Laterality Modality Other Narrative 06/14/2016 2:53 PM EDT See orthoptic note Elda Gomez MD OPHTHALMOLOGY SERVIC ES ORDERABLES documented in this encounter Visit Diagnoses Diagnosis Accommodative esotropia Accommodative component in esotropia documented in this encounter Care Teams Warp Hauler Relationship Specialty Start Date End Date Radu Gaona ND [address] [place] [address] PCP - General Naturopathic Medicine 06/14/16 documented as of this encounter
--- OUTSIDE RECORDS SUMMARY | 2024-03-02 00:18 | XMS_ITS | Encounter Summary ---
Author Organization [facility] [place] [address] Care Team Providers Care Trimmer Machine Name Role Phone Radu Gaona ND Primary Care Provider [phone] Encounter Details Date Type Department Care Team (Late st Contact Info) Description 07/25/2019 Telephone Ophthalmology at [facility] [place] [place] [address] Kayli Hendricks, MIRELLA [facility] [place] [address] Social History Tobacco Use Types Packs/Day Years [...] on filedocumented in this encounter Care Teams Trimmer Machine Relationship Specialty Start Date End Date Radu Gaona ND [address] [place] [address] PCP - General Naturopathic Medicine 06/14/16 documented as of this encounter
--- OUTSIDE RECORDS SUMMARY | 2024-03-02 00:18 | XMS_ITS | Encounter Summary ---
Author Organization [facility] [place] [address] Care Team Providers Care Heat Welder Plastics Name Role Phone Radu Gaona ND Primary Care Provider Encounter Details Date Type Department Care Team (Late st Contact Info) Description 06/16/2020 Telephone Ophthalmology at [facility] [place] [address] Kayli Hendricks, MIRELLA [facility] [place] [address] Social History Tobacco Use Types Packs/Day Years [...] on filedocumented in this encounter Care Teams Heat Welder Plastics Relationship Specialty Start Date End Date Radu Gaona ND [address] [place] [address] PCP - General Naturopathic Medicine 06/14/16 documented as of this encounter
--- OUTSIDE RECORDS SUMMARY | 2024-03-02 00:18 | XMS_ITS | Encounter Summary ---
Author Organization [facility] Address [facility] [place] [address] Care Team Providers Care Medical Auditor Name Role Phone Radu Gaona ND Primary Care Provider [phone] Reason for Visit * Reason Comments Shortness of Breath Encounter Details Date Type Department Care Team (Late st Contact Info) Description 06/29/2018 3:52 PM EDT - 06/29/2018 4:56 PM EDT Emergency [place] [address] Yoselyn Landeros MD [facility] [place] [address] Anxiety; Panic attack Discharge Disposition: Home Social [...] through Care Everywhere. * Panic Attacks: Pediatric (Czech) documented in this encounter ED Notes * [...] earlier when at a doctors office in [place]. She was in the waiting room when [...] with mom Carmen Dudley MD Resident 06/29/18 8472 documented in this encounter Plan of Treatment Not on file documented as of this encounter Visit Diagnoses Diagnosis Anxiety Anxiety state, unspecified Panic attack Panic disorder without agoraphobia documented in this encounter Care Teams Medical Auditor Relationship Specialty Start Date End Date Radu Gaona ND [address] [place] [address] PCP - General Naturopathic Medicine 06/14/16 documented as of this encounter
--- OUTSIDE RECORDS SUMMARY | 2024-03-02 00:18 | XMS_ITS | Encounter Summary ---
Author Organization [facility] [place] [address] Care Team Providers Care Chisel Mortiser Operator Name Role Phone Jacquelyn Pacheco MD Primary Care Provider [phone] Reason for Visit * Reason Comments Strabismus Orthoptic f/u, here with parents Encounter Details Date Type Department Care Team (Latest Contact Info) Description 07/17/2015 8:00 AM EDT Office Visit Ophthalmology at [facility] [place] [address] Pinky Iglesias CO Accommodative esotropia Social History [...] in this encounter Results * SENSORIMOTOR EXAM [NM SPECIAL EYE EXAM] - OU- BOTH EYES (07/17/2015 11:49 AM EDT) Anatomical Region Laterality Modality Other Narrative 07/17/2015 11:49 AM EDT See orthoptic note Elda Gomez MD OPHTHALMOLOGY SERVIC ES ORDERABLES documented in this encounter Visit Diagnoses Diagnosis Accommodative esotropia Accommodative component in esotropia documented in this encounter Care Teams Chisel Mortiser Operator Relationship Specialty Start Date End Date Jacquelyn Pacheco MD [address] [place] [address] PCP - General 07/15/10 06/13/16 documented as of this encounter
--- OUTSIDE RECORDS SUMMARY | 2024-03-02 00:18 | XMS_ITS | Encounter Summary ---
Author Organization [facility] [place] [address] Care Team Providers Care County Superintendent Of Schools Name Role Phone Radu Gaona ND Primary Care Provider [phone] Encounter Details Date Type Department Care Team (Late st Contact Info) Description 06/17/2020 Telephone Ophthalmology at [facility] [place] [address] Kayli Hendricks, MIRELLA [facility] [place] [address] Social History Tobacco Use Types Packs/Day Years [...] on filedocumented in this encounter Care Teams County Superintendent Of Schools Relationship Specialty Start Date End Date Radu Gaona ND [address] [place] [address] PCP - General Naturopathic Medicine 06/14/16 documented as of this encounter
--- OUTSIDE RECORDS SUMMARY | 2024-03-02 00:18 | XMS_ITS | Encounter Summary ---
Author Organization [facility] [place] [address] Care Team Providers Care Side Piece Coverer Name Role Phone Radu Gaona ND Primary Care Provider [phone] Reason for Visit * Reason Comments Contact Lens Training Encounter Details Date Type Department Care Team (Late st Contact Info) Description 02/02/2018 1:30 PM EDT Clinical [place] [address] Social History Tobacco Use Types Packs/Day Years Used Date Smoking Tobacco: Never Assessed Sex and Gender Information Value Date Recorded Sex Assigned at Not on file Gender Identity Not on file Sexual Orientation Not on file documented as of this encounter Plan of Treatment Not on file documented as of this encounter Visit Diagnoses Not on filedocumented in this encounter Care Teams Side Piece Coverer Relationship Specialty Start Date End Date Radu Gaona ND [address] [place] [address] PCP - General Naturopathic Medicine 06/14/16 documented as of this encounter
--- OUTSIDE RECORDS SUMMARY | 2024-03-02 00:18 | XMS_ITS | Encounter Summary ---
Author Organization [facility] [place] [address] Care Team Providers Care Conference Coordinator Name Role Phone Radu Gaona ND Primary Care Provider [phone] Reason for Visit * Reason Onset Date Comments Other 12/01/2017 Requesting call back from Sintia Encounter Details Date Type Department Care Team (Late st Contact Info) Description 12/01/2017 Telephone [place] [address] Elda Gomez MD [facility] [place] [address] Other (Requesting call back from [facility]) Social [...] ? Author Type: Other Clinician Status: Signed Saloon Keeper: Pinky Iglesias CO (Other Clinician) ?? Genoveva Gonzalez is a 16 year old female s/p early surgery for esotropia, Dr. Jerica Shoemaker. 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 ?? Genoveva is interested in trying contacts in the future. ?? Plan: Return to see Dr. Gomze in 1 year. documented in this encounter Plan of Treatment Not on file documented as of this encounter Visit Diagnoses Not on filedocumented in this encounter Care Teams Conference Coordinator Relationship Specialty Start Date End Date Radu Gaona ND [address] [place] [address] PCP - General Naturopathic Medicine 06/14/16 documented as of this encounter
--- OUTSIDE RECORDS SUMMARY | 2024-03-02 00:18 | XMS_ITS | Encounter Summary ---
Author Organization [facility] [place] [address] Care Team Providers Care Private Investigator Surveillance Name Role Phone Radu Gaona ND Primary Care Provider [phone] Reason for Visit * Reason Comments Contact Lens Check Encounter Details Date Type Department Care Team (Latest Contact Info) Description 12/22/2020 2:20 PM EDT Office Visit Ophthalmology at [facility] [place] [address] Kayli Hendricks, OD [facility] [place] [address] Accommodative esotropia; Hyperopic astigmatism of both eyes [...] Rx Brand Base Curve Diameter Sphere Cylinder [place] Right Acuvue Oasys Astigmatism 8.6 14.5 +4.00 [...] esotropia with history of high AC/A, s/p [facility] age [address] Shoemaker * H/o patching OS [id number] w/ excellent compliance * H/o bifocals until [...] eyes documented in this encounter Care Teams Private Investigator Surveillance Relationship Specialty Start Date End Date Radu Gaona ND [address] [place] [address] PCP - General Naturopathic Medicine 06/14/16 documented as of this encounter
--- OUTSIDE RECORDS SUMMARY | 2024-03-02 00:18 | XMS_ITS | Referral Summary ---
Author Organization [facility] Address [address] [place] [address] Care Team Providers Care Butadiene Converter Helper Name Role Phone Unavailable Primary Care Provider [...]
--- OUTSIDE RECORDS SUMMARY | 2024-03-02 00:18 | XMS_ITS | Encounter Summary ---
Author Organization [facility] [place] [address] Care Team Providers Care Supervisor Lending Activities Name Role Phone Radu Gaona ND Primary Care Provider [phone] Encounter Details Date Type Department Care Team (Late st Contact Info) Description 08/08/2019 [place] [address] Elda Gomez MD [facility] [place] [address] Social History Tobacco Use Types Packs/Day Years [...] on filedocumented in this encounter Care Teams Supervisor Lending Activities Relationship Specialty Start Date End Date Radu Gaona ND [address] [place] [address] PCP - General Naturopathic Medicine 06/14/16 documented as of this encounter
--- OUTSIDE RECORDS SUMMARY | 2024-03-02 00:18 | XMS_ITS | Encounter Summary ---
Author Organization [facility] [place] [address] Care Team Providers Care Mental Tester Name Role Phone Radu Gaona ND Primary Care Provider [phone] Encounter Details Date Type Department Care Team (Late st Contact Info) Description 01/04/2018 [place] [address] Elda Gomez MD [facility] [place] [place] [address] Social History Tobacco Use Types Packs/Day Years [...] on filedocumented in this encounter Care Teams Mental Tester Relationship Specialty Start Date End Date Radu Gaona ND [address] [place] [address] PCP - General Naturopathic Medicine 06/14/16 documented as of this encounter
--- OUTSIDE RECORDS SUMMARY | 2024-03-02 00:18 | XMS_ITS | Encounter Summary ---
Author Organization [facility] Address [facility] [place] [address] Care Team Providers Care Coconut Candy Maker Name Role Phone Radu Gaona ND Primary Care Provider [phone] Reason for Visit * Reason Comments Strabismus Encounter Details Date Type Department Care Team (Latest Contact Info) Description 03/24/2020 9:30 AM EST Office Visit Ophthalmology at [facility] [place] [address] Elda Gomez MD [facility] [place] [address] Accommodative esotropia; Hyperopic astigmatism of both eyes [...] eyes documented in this encounter Care Teams Coconut Candy Maker Relationship Specialty Start Date End Date Radu Gaona ND [address] [place] [address] PCP - General Naturopathic Medicine 06/14/16 documented as of this encounter
--- OUTSIDE RECORDS SUMMARY | 2024-03-02 00:18 | XMS_ITS | Encounter Summary ---
Author Organization [facility] Address [address] [place] [address] Care Team Providers Care Bmet Name Role Phone Unavailable Primary Care Provider Unavailabl e Encounter Details Date Type Department Care Team (Late st Contact Info) Description 06/30/[address] [facility] Pathology & Laboratory Medicine - [address] [address] Outr Resulting Lab, Provider Social History Tobacco [...] 30 - 100 ng/mL 07/01/2022 9:38 EDT [facility] Comment: Vitamin D 25,OH Interpretive Ranges: Deficiency: ??<10.0 ng/mL Insufficiency: ??10.0 - 30.0 ng/mL Sufficiency: ??30.0 - 100.0 ng/mL Toxicity: ??>100.0 ng/mL Blood VENOUS BLOOD / Unknown 06/29/2022 15:00 EDT 06/30/2022 17:27 EDT us Provider Outr Resulting Lab CHEMISTRY & BLOOD GA S ORDERABLES Final Result [facility] [address] [place] [address] documented in this encounter Visit Diagnoses Not on filedocumented in this encounter
--- OUTSIDE RECORDS SUMMARY | 2024-03-02 00:18 | XMS_ITS | Encounter Summary ---
Author Organization [facility] Address [facility] [place] [address] Care Team Providers Care Recreation Specialist Name Role Phone Jacquelyn Pacheco MD Primary Care Provider [phone] Reason for Visit * Reason Comments Strabismus Patching OS 4 hours daily. Encounter Details Date Type Department Care Team (Latest Contact Info) Description 04/26/2011 1:45 PM EST Office [place] [address] Elda Ulloa MD [facility] [place] [address] Accommodative esotropia (Primary Dx); Amblyopia Discharge Disposition: [...] concern: When covering Left eye, OD seems chicken raiser, when covering right eye, OS seems darker. [...] unspecified documented in this encounter Care Teams Recreation Specialist Relationship Specialty Start Date End Date Jacquelyn Pacheco MD [address] [place] [address] PCP - General 07/15/10 06/13/16 documented as of this encounter
--- OUTSIDE RECORDS SUMMARY | 2024-03-02 00:18 | XMS_ITS | Encounter Summary ---
Author Organization [facility] [place] [address] Care Team Providers Care Hydropress Operator Name Role Phone Jacquelyn Pacheco MD Primary Care Provider [phone] Reason for Visit * Reason Onset Date Comments Other 12/25/2015 Pt's guardian alaniz s questions for BS about her glasses. She would like Pinky to call her back as soon as possible. Encounter Details Date Type Department Care Team (Late st Contact Info) Description 12/25/2015 Telephone [place] [address] Pinky Iglesias [place] Other (Pt's [...] on filedocumented in this encounter Care Teams Hydropress Operator Relationship Specialty Start Date End Date Jacquelyn Pacheco MD [address] [place] [address] [place] [address] PCP - General 07/15/10 06/13/16 documented as of this encounter
--- OUTSIDE RECORDS SUMMARY | 2024-03-02 00:18 | XMS_ITS | Encounter Summary ---
Author Organization [facility] [place] [address] Care Team Providers Care Speeder Machine Operator Name Role Phone Radu Gaona ND Primary Care Provider Reason for Visit * Reason Comments Skin Check Encounter Details Date Type Department Care Team (Late st Contact Info) Description 05/11/2019 8:45 AM EST Office Visit Dermatology at [address] [address] Ovi Renee MD [address] [place] [address], [facility] [place] [address] Nevus Social History Tobacco Use Types Packs/Day [...] unspecified documented in this encounter Care Teams Speeder Machine Operator Relationship Specialty Start Date End Date Radu Gaona ND [address] [place] [address] PCP - General Naturopathic Medicine 06/14/16 documented as of this encounter
--- OUTSIDE RECORDS SUMMARY | 2024-03-02 00:18 | XMS_ITS | Encounter Summary ---
Author Organization [facility] [place] [address] Care Team Providers Care Bindery Cutter Operator Name Role Phone Radu Gaona ND Primary Care Provider [phone] Reason for Visit * Reason Comments Eye Exam Encounter Details Date Type Department Care Team (Latest Contact Info) Description 10/04/2019 7:20 AM EDT Office Visit Ophthalmology at [facility] [place] [address] Kayli Hendricks, OD [facility] [address] Accommodative esotropia; Hypermetropia of both eyes Social [...] Rx Brand Base Curve Diameter Sphere Cylinder Big Arm Right Acuvue Oasys Astigmatism 8.6 14.5 +4.50 [...] by Dr. Shoemaker * H/o patching OS [id number] w/ excellent compliance * H/o bifocals until [...] Final Rx Eyeglass Final Rx Sphere Cylinder Big Arm Right +3.00 +1.50 095 Left +2.50 +1.25 105 Type: SVL Expiration Date: 10/04/2021 Comments: Polycarbonate Kyali Hendricks, MIRELLA 10/04/2019 documented in this encounter Plan of Treatment Not on file documented as of this encounter Visit Diagnoses Diagnosis Accommodative esotropia Accommodative component in esotropia Hypermetropia of both eyes Hypermetropia documented in this encounter Care Teams Bindery Cutter Operator Relationship Specialty Start Date End Date Radu Gaona ND [address] [place] [address] PCP - General Naturopathic Medicine 06/14/16 documented as of this encounter
--- OUTSIDE RECORDS SUMMARY | 2024-03-02 00:18 | XMS_ITS | Encounter Summary ---
Author Organization [facility] Address [facility] [place] [address] Care Team Providers Care Front End Mechanic Name Role Phone Jacquelyn Pacheco MD Primary Care Provider [phone] Reason for Visit * Reason Comments Strabismus here with guardian ( grandfather) Blurred Vision Encounter Details Date Type Department Care Team (Latest Contact Info) Description 01/13/2016 8:00 AM EDT Office [place] [address] Elda Ulloa MD [facility] [place] [address] Accommodative esotropia; Hyperopia, bilateral Social History Tobacco [...] bilateral documented in this encounter Care Teams Front End Mechanic Relationship Specialty Start Date End Date Jacquelyn Pacheco MD [address] [place] [address] PCP - General 07/15/10 06/13/16 documented as of this encounter
--- OUTSIDE RECORDS SUMMARY | 2024-03-02 00:18 | XMS_ITS | Encounter Summary ---
Author Organization [facility] [place] [address] Care Team Providers Care Turbo Generator Oiler Name Role Phone Radu Gaona ND Primary Care Provider [phone] Reason for Visit * Reason Comments Eye Exam Encounter Details Date Type Department Care Team (Latest Contact Info) Description 01/03/2018 3:30 PM EDT Office Visit Ophthalmology at [facility] [place] [address] Kayli Hendricks, [place] [facility] [address] Accommodative esotropia; Hypermetropia of both eyes Social [...] an established patient with Dr. Gomez and Pinky. Last exam with Dr. Gomez 01/2016. Last [...] by Dr. Shoemaker * H/o patching OS [id number] w/ excellent compliance * H/o bifocals until [...] Hypermetropia documented in this encounter Care Teams Turbo Generator Oiler Relationship Specialty Start Date End Date Radu Gaona ND [address] [place] [address] PCP - General Naturopathic Medicine 06/14/16 documented as of this encounter
--- OUTSIDE RECORDS SUMMARY | 2024-03-02 00:18 | XMS_ITS | Encounter Summary ---
Author Organization [facility] Address [address] [place] [address] Care Team Providers Care Licensed Physical Therapist Name Role Phone Unavailable Primary Care Provider Unavailabl e Encounter Details Date Type Department Care Team (Late st Contact Info) Description 06/30/2022 Lab Requisition [place] Pathology & Laboratory Medicine - [facility] [address] [place] [address] Outr Resulting Lab, Provider Social History Tobacco [...] 211 - 911 pg/mL 06/30/2022 18:31 EDT [facility] Blood VENOUS BLOOD / Unknown 06/29/2022 15:00 EDT 06/30/2022 17:27 EDT us Provider Outr Resulting Lab CHEMISTRY & BLOOD GA S ORDERABLES Final Result [facility] [address] [place] [address] documented in this encounter Visit Diagnoses Not on filedocumented in this encounter
--- OUTSIDE RECORDS SUMMARY | 2024-03-02 00:18 | XMS_ITS | Encounter Summary ---
Author Organization [facility] Address [address] [place] [address] Care Team Providers Care Air Cargo Agent Name Role Phone Unavailable Primary Care Provider Unavailabl e Encounter Details Date Type Department Care Team (Late st Contact Info) Description 06/01/2022 Lab Requisition [facility] Pathology & Laboratory Medicine - [facility] [address] [place] [address] Outr Resulting Lab, Provider Social History Tobacco [...] Anti-Thyroglobulin <15 <=60 U/mL 2022 9:06 EST [facility] Thyroperoxidase Ab 40 <=60 U/mL 2022 9:06 EST [facility] Blood VENOUS BLOOD / Unknown 06/01/2022 15:54 EST 06/01/2022 22:56 EST us Provider Outr Resulting Lab CHEMISTRY & BLOOD GA S ORDERABLES Final Result Performing Organization Address [facility]/ZIP Co de Phone Number [facility] [address] [place] [address] * RUBELLA IGG ANTIBODY (06/01/2022 15:54 EST) Rubella IgG Ab Positive See Note 06/02/2022 10:41 EST [facility] Comment:Positive for IgG ant ibodies to Rubella virus. Blood VENOUS BLOOD / Unknown 06/01/2022 15:54 EST 06/01/2022 22:56 EST us Provider Outr Resulting Lab CHEMISTRY & BLOOD GA S ORDERABLES Final Result Performing Organization Address [facility] Co de Phone Number [facility] [address] [place] [address] * SYPHILIS SEROLOGY (06/01/2022 15:54 EST) Syphilis Serology Negative Negative 06/02/2022 10:49 EST [facility] Blood VENOUS BLOOD / Unknown 06/01/2022 15:54 EST 06/01/2022 22:56 EST us Provider Outr Resulting Lab IMMUNOLOGY AND SEROL OGY ORDERABLES Final Result Performing Organization Address [facility] Co de Phone Number [facility] [address] [place] [address] * HEPATITIS B SURFACE ANTIGEN (06/01/2022 15:54 EST) Hep B Surface Ag Negative Negative 06/02/2022 9:25 EST [facility] Blood VENOUS BLOOD / Unknown 06/01/2022 15:54 EST 06/01/2022 22:56 EST us Provider Outr Resulting Lab CHEMISTRY & BLOOD GA S ORDERABLES Final Result Performing Organization Address [facility]/ZIP Co de Phone Number [facility] [address] [place] [address] documented in this encounter Visit Diagnoses Not on filedocumented in this encounter
--- OUTSIDE RECORDS SUMMARY | 2024-03-02 00:18 | XMS_ITS | Encounter Summary ---
Author Organization [facility] [place] [address] Care Team Providers Care Consumer Insights Intern Name Role Phone Radu Gaona ND Primary Care Provider [phone] Reason for Visit * Reason Comments Eye Exam Encounter Details Date Type Department Care Team (Latest Contact Info) Description 12/18/2020 2:40 PM EDT Office Visit Ophthalmology at [facility] [place] [address] Kayli Hendricks, OD [facility] [address] Accommodative esotropia; Hyperopic astigmatism of both eyes; [...] by Dr. Shoemaker * H/o patching OS [id number] w/ excellent compliance * H/o bifocals until 2014 (excellent control with SVL since then) * Improved visual acuity with less plus both eyes today * Almost equal acuity today, h/o amblyopia OD Plan: 1) CL recheck in 1-2 weeks. 2) Monitor. Follow-up: CL check in 1-2 weeks. 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
--- OUTSIDE RECORDS SUMMARY | 2024-03-02 00:18 | XMS_ITS | Encounter Summary ---
Author Organization [facility] Address [facility] [place] [address] Care Team Providers Care Any Commodity Sales Deliverer Name Role Phone aJcquelyn Pacheco MD Primary Care Provider [phone] Reason for Visit * Reason Comments Strabismus Here with parents an d younger brother Dae Encounter Details Date Type Department Care Team (Latest Contact Info) Description 01/08/2013 8:30 AM EDT Office [place] [address] Elda Ulloa MD [facility] [place] [address] Accommodative esotropia (Primary Dx); Hyperopia Discharge Disposition: Home Social History Tobacco Use Types Packs/Day Years Used Date Smoking Tobacco: Never Assessed Sex and Gender Information Value Date Recorded Sex Assigned at Not on file Gender Identity Not on file Sexual Orientation Not on file documented as of this encounter Progress Notes * Elda Ulloa MD - 01/08/2013 10:53 AM EDT Genoveva [...] Hypermetropia documented in this encounter Care Teams Any Commodity Sales Deliverer Relationship Specialty Start Date End Date Jacquelyn Pacheco MD [address] [place] [address] PCP - General 07/15/10 06/13/16 documented as of this encounter
--- OUTSIDE RECORDS SUMMARY | 2024-03-02 00:18 | XMS_ITS | Encounter Summary ---
Author Organization [facility] [place] [address] Care Team Providers Care Instrumentation Specialist Name Role Phone Radu Gaona ND Primary Care Provider [phone] Encounter Details Date Type Department Care Team (Late st Contact Info) Description 01/04/2018 Telephone Ophthalmology at [facility] [place] [address] Kayli Hendricks, MIRELLA [place] [address] Social History Tobacco Use Types Packs/Day Years Used Date Smoking Tobacco: Never Assessed Sex and Gender Information Value Date Recorded Sex Assigned at Not on file Gender Identity Not on file Sexual Orientation Not on file documented as of this encounter Plan of Treatment Not on file documented as of this encounter Visit Diagnoses Not on filedocumented in this encounter Care Teams Instrumentation Specialist Relationship Specialty Start Date End Date Radu Gaona ND [address] [place] [address] PCP - General Naturopathic Medicine 06/14/16 documented as of this encounter
--- OUTSIDE RECORDS SUMMARY | 2024-03-02 00:18 | XMS_ITS | Encounter Summary ---
Author Organization [facility] Address [address] [place] [address] Care Team Providers Care Campaign Management Specialist Name Role Phone Unavailable Primary Care Provider Unavailabl e Encounter Details Date Type Department Care Team (Late st Contact Info) Description 06/30/2022 Lab Requisition [facility] Pathology & Laboratory Medicine - [facility] [address] [place] [address] Outr Resulting Lab, Provider Social History Tobacco [...] 8.4 See Note ng/mL 06/30/2022 18:25 EDT [facility] Comment: Reference Ranges for Folate: Deficient: ?< 3.4 ng/mL Indeterminate: ??3.4 - 5.4 ng/mL Normal: ? > 5.4 ng/mL The results of this assay can be falsely elevated due to the consumption of Biotin. Blood VENOUS BLOOD / Unknown 06/29/2022 15:00 EDT 06/30/2022 17:27 EDT us Provider Outr Resulting Lab CHEMISTRY & BLOOD GA S ORDERABLES Final Result [facility] [address] [place] [address] documented in this encounter Visit Diagnoses Not on filedocumented in this encounter
--- OUTSIDE RECORDS SUMMARY | 2024-03-02 00:18 | XMS_ITS | Encounter Summary ---
Author Organization [facility] [place] [address] Care Team Providers Care Fireproof Door Maker Name Role Phone Radu Gaona ND Primary Care Provider [phone] Reason for Visit * Reason Comments Contact Lens Training Encounter Details Date Type Department Care Team (Late st Contact Info) Description 02/20/2018 1:00 PM EST Clinical Support [facility] [place] [address] Social History Tobacco Use Types Packs/Day Years [...] on filedocumented in this encounter Care Teams Fireproof Door Maker Relationship Specialty Start Date End Date Radu Gaona ND [address] [place] [address] PCP - General Naturopathic Medicine 06/14/16 documented as of this encounter
--- OUTSIDE RECORDS SUMMARY | 2024-03-02 00:18 | XMS_ITS | Encounter Summary ---
Author Organization [facility] [place] [address] Care Team Providers Care News Camera Operator Name Role Phone Jacquelyn Pacheco MD Primary Care Provider [phone] Reason for Visit * Reason Comments Strabismus Here with parents an d younger brother Dae Amblyopia Encounter Details Date Type Department Care Team (Latest Contact Info) Description 07/17/2012 1:00 PM EDT Office Visit Ophthalmology at [facility] [place] [address] Pinky Iglesias [place] Accommodative component in esotropia [...] Genoveva is a 12 year female s/p [facility] 09-07 with a residual PAT and mild [...] in this encounter Results * SENSORIMOTOR EXAM [AZ SPECIAL EYE EXAM] - OU- BOTH EYES [...] unspecified documented in this encounter Care Teams News Camera Operator Relationship Specialty Start Date End Date Jacquelyn Pacheco MD [address] [place] [address] [place] [address] PCP - General 07/15/10 06/13/16 documented as of this encounter
--- OUTSIDE RECORDS SUMMARY | 2024-03-02 00:18 | XMS_ITS | Encounter Summary ---
Author Organization [facility] Address [facility] [place] [address] Care Team Providers Care Pharmacy Clerk Name Role Phone Jacquelyn Pacheco MD Primary Care Provider [phone] Reason for Visit * Reason Comments Eye Problem ~9 month check, acco modative ET. Encounter Details Date Type Department Care Team (Latest Contact Info) Description 01/31/2012 11:15 AM EDT Office [place] [address] Elda Ulloa MD [facility] [place] [place] [address] Accommodative esotropia (Primary Dx); Hyperopia; Amblyopia Discharge [...] * 01/31/2012 11:15 AM EDT >> ELDA ULLOA MD TueJan 31, 2012 1:24 PM 9 [...] unspecified documented in this encounter Care Teams Pharmacy Clerk Relationship Specialty Start Date End Date Jacquelyn Pacheco MD [address] [place] [address] PCP - General 07/15/10 06/13/16 documented as of this encounter
--- OUTSIDE RECORDS SUMMARY | 2024-03-02 00:18 | XMS_ITS | Encounter Summary ---
Author Organization [facility] Address [address] [place] [address] Care Team Providers Care Machinist Mate Name Role Phone Unavailable Primary Care Provider Unavailabl e Encounter Details Date Type Department Care Team (Late st Contact Info) Description 08/24/2022 Lab Requisition [facility] Pathology & Laboratory Medicine - [facility] [address] [place] [address] Outr Resulting Lab, Provider Social History Tobacco [...] 12.7 See Note ng/mL 08/24/2022 23:15 EDT [facility] Comment: Reference Ranges for Folate: Deficient: ?< 3.4 ng/mL Indeterminate: ??3.4 - 5.4 ng/mL Normal: ? > 5.4 ng/mL The results of this assay can be falsely elevated due to the consumption of Biotin. Blood VENOUS BLOOD / Unknown 08/24/2022 16:05 EDT 08/24/2022 21:41 EDT us Provider Outr Resulting Lab CHEMISTRY & BLOOD GA S ORDERABLES Final Result [facility] [address] [place] [address] documented in this encounter Visit Diagnoses Not on filedocumented in this encounter
--- OUTSIDE RECORDS SUMMARY | 2024-03-02 00:18 | XMS_ITS | Encounter Summary ---
Author Organization [facility] Address [address] [place] [address] Care Team Providers Care Speech Language Specialist Name Role Phone Unavailable Primary Care Provider Unavailabl e Encounter Details Date Type Department Care Team (Late st Contact Info) Description 08/24/2022 Lab Requisition [facility] Pathology & Laboratory Medicine - [facility] [address] [place] [address] Outr Resulting Lab, Provider Social History Tobacco [...] 211 - 911 pg/mL 08/24/2022 23:02 EDT [facility] Blood VENOUS BLOOD / Unknown 08/24/2022 16:05 EDT 08/24/2022 21:41 EDT us Provider Outr Resulting Lab CHEMISTRY & BLOOD GA S ORDERABLES Final Result [facility] [address] [place] [address] documented in this encounter Visit Diagnoses Not on filedocumented in this encounter
--- OUTSIDE RECORDS SUMMARY | 2024-03-02 00:18 | XMS_ITS | Encounter Summary ---
Author Organization [facility] [place] [address] Care Team Providers Care R And D Lab Technician Name Role Phone Radu Gaona ND Primary Care Provider [phone] Reason for Visit * Reason Comments Suture / Staple Removal Encounter Details Date Type Department Care Team (Late st Contact Info) Description 05/18/2019 10:30 AM EST Office Visit Dermatology at [address] [address] Ovi Renee MD [address] [facility] [address] Visit for suture removal Social History Tobacco [...] sutures documented in this encounter Care Teams R And D Lab Technician Relationship Specialty Start Date End Date Radu Gaona ND [address] [place] [address] PCP - General Naturopathic Medicine 06/14/16 documented as of this encounter
--- OUTSIDE RECORDS SUMMARY | 2024-03-02 00:18 | XMS_ITS | Encounter Summary ---
Author Organization [facility] [place] [address] Care Team Providers Care Odd Ticket Clerk Name Role Phone Radu Gaona ND Primary Care Provider [phone] Reason for Visit * Reason Onset Date Comments Questions 01/04/2018 Encounter Details Date Type Department Care Team (Late st Contact Info) Description 01/04/2018 Telephone Ophthalmology at [facility] [place] [address] Kayli Hendricks, [facility] [place] [address] Questions Social History Tobacco Use Types Packs/Day [...] call the pt & mother at home [phone]. documented in this encounter Plan of Treatment Not on file documented as of this encounter Visit Diagnoses Not on filedocumented in this encounter Care Teams Odd Ticket Clerk Relationship Specialty Start Date End Date Radu Gaona ND [address] [place] [address] PCP - General Naturopathic Medicine 06/14/16 documented as of this encounter
--- OUTSIDE RECORDS SUMMARY | 2024-03-02 00:18 | XMS_ITS | Encounter Summary ---
Author Organization [facility] [place] [address] Care Team Providers Care Corporate Analyst Name Role Phone Radu Gaona ND Primary Care Provider [phone] Reason for Visit * Reason Onset Date Comments Appointment 12/30/2017 Encounter Details Date Type Department Care Team (Late st Contact Info) Description 12/30/2017 Telephone [place] [phone] Elda Gomez MD [facility] [place] [address] Appointment Social History Tobacco Use Types Packs/Day [...] [facility] 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
--- OUTSIDE RECORDS SUMMARY | 2024-03-02 00:18 | XMS_ITS | Encounter Summary ---
Author Organization [facility] Address [facility] [place] [address] Care Team Providers Care District Representative Name Role Phone Radu Gaona ND Primary Care Provider [phone] Reason for Visit * Reason Comments Strabismus Encounter Details Date Type Department Care Team (Latest Contact Info) Description 08/07/2018 1:30 PM EDT Office Visit Ophthalmology at [facility] [place] [address] Elda Gomez MD [facility] DR [place] [address] Accommodative esotropia; Hypermetropia of both eyes Social [...] Hypermetropia documented in this encounter Care Teams District Representative Relationship Specialty Start Date End Date Radu Gaona ND [address] [place] [address] PCP - General Naturopathic Medicine 06/14/16 documented as of this encounter
--- OUTSIDE RECORDS SUMMARY | 2024-03-02 00:18 | XMS_ITS | Encounter Summary ---
Author Organization [facility] [address] Care Team Providers Care Child Care Worker Name Role Phone Radu Gaona ND Primary Care Provider [phone] Reason for Visit * Reason Onset Date Comments Appointment 01/18/2018 Encounter Details Date Type Department Care Team (Late st Contact Info) Description 01/18/2018 Telephone Ophthalmology at [facility] [place] [address] Kayli Hendricks, MIRELLA [facility] [place] [address] Appointment Social History Tobacco Use Types Packs/Day [...] on filedocumented in this encounter Care Teams Child Care Worker Relationship Specialty Start Date End Date Radu Gaona ND [address] [place] [address] PCP - General Naturopathic Medicine 06/14/16 documented as of this encounter
--- OUTSIDE RECORDS SUMMARY | 2024-03-02 00:18 | XMS_ITS | Encounter Summary ---
Author Organization [facility] Address [facility] [place] [address] Care Team Providers Care Open Winder Name Role Phone Jacquelyn Pacheco MD Primary Care Provider [phone] Reason for Visit * Reason Comments Strabismus Encounter Details Date Type Department Care Team (Latest Contact Info) Description 10/28/2014 2:45 PM EDT Office Visit Ophthalmology at [place] [place] [address] Elda Ulloa MD [facility] [place] [address] Accommodative esotropia; Hyperopia, bilateral Discharge Disposition: Home [...] bilateral documented in this encounter Care Teams Open Winder Relationship Specialty Start Date End Date Jacquelyn Pacheco MD [address] [place] [address] PCP - General 07/15/10 06/13/16 documented as of this encounter
--- OUTSIDE RECORDS SUMMARY | 2024-03-02 00:18 | XMS_ITS | Encounter Summary ---
Author Organization [facility] Address [address] [place] [address] Care Team Providers Care Military Personnel Specialist Name Role Phone Unavailable Primary Care Provider Unavailabl e Encounter Details Date Type Department Care Team (Late st Contact Info) Description 08/24/2022 Lab Requisition [facility] Pathology & Laboratory Medicine - [facility] [address] [place] [address] Outr Resulting Lab, Provider Social History Tobacco [...] Cell Prep Negative Negative 08/25/2022 13:10 EDT [facility] Blood VENOUS BLOOD / Unknown 08/24/2022 16:05 EDT 08/24/2022 21:36 EDT us Provider Outr Resulting Lab HEMATOLOGY & PF4 ORD ERABLES Final Result [facility] [address] [place] [address] documented in this encounter Visit Diagnoses Not on filedocumented in this encounter
--- OUTSIDE RECORDS SUMMARY | 2024-03-02 00:18 | XMS_ITS | Clinical Summary ---
Author Organization [facility] [place] [address] Care Team Providers Care Side Seam Envelope Machine Operator Name Role Phone Radu Gaona ND Primary Care Provider [phone] Allergies No known active allergies Medications No [...] Hepatitis B vaccine (0-59 yrs) (1) 2021 Tetanus/Diphtheria/Pertussis Vaccines (1 - Tdap) 05/01 PAP Smear 2023 Covid-19 Vaccine (1 - 2023- season) 2023 Influenza (Flu) vaccine (1 o f 1 - Influenza standard series) 12/04/2023 Care Teams Side Seam Envelope Machine Operator Relationship Specialty Start Date End Date Radu Gaona ND [address] [place], [place] [address] PCP - General Naturopathic Medicine 06/14/16
--- OUTSIDE RECORDS SUMMARY | 2024-03-02 00:19 | XMS_ITS | Encounter Summary ---
Author Organization [facility] Address [facility] [place] [address] Care Team Providers Care Coordinator Of Evaluation Name Role Phone Jacquelyn Pacheco MD Primary Care Provider [phone] Reason for Visit * Reason Comments Strabismus here to transfer of care due to insurance not accepted at Dr. Jerica Shoemaker's office Encounter Details Date Type Department Care Team (Latest Contact Info) Description 10/12/2010 8:45 AM EDT Office [place] [address] Elda Ulloa MD [facility] [place] [address] Accommodative esotropia (Primary Dx); Hyperopia; Amblyopia Discharge [...] 0.5 OU given (+5.50 +0.50x85 OD; +4.50 +1.75x172 OS; +2.75 add OU). -Patch OS 4hour/day [...] unspecified documented in this encounter Care Teams Coordinator Of Evaluation Relationship Specialty Start Date End Date Jacquelyn Pacheco MD [address] [place] [address] [place] [address] PCP - General 07/15/10 06/13/16 documented as of this encounter
--- OUTSIDE RECORDS SUMMARY | 2024-03-02 00:19 | XMS_ITS | Encounter Summary ---
Author Organization [facility] [place] [address] Care Team Providers Care Visual Stylist Name Role Phone Jacquelyn Pacheco MD Primary Care Provider [phone] Reason for Visit * Reason Comments Strabismus 3 month Orthoptic f/ u with new glasses and patching therapy Encounter Details Date Type Department Care Team (Late st Contact Info) Description 01/04/2011 9:00 AM EDT Office [place] [address] Pinky Iglesias [place] Amblyopia of right eye [...] Return for 3 month f/u with Dr. Gomez. documented in this encounter Nursing Notes * 01/04/2011 9:00 AM EDT >> REBECA AVILES OR [facility] Jan 04, 2011 9:51 AM Description:Patient presents [...] unspecified documented in this encounter Care Teams Visual Stylist Relationship Specialty Start Date End Date Jacquelyn Pacheco MD [address] [place] [address] PCP - General 07/15/10 06/13/16 documented as of this encounter
== END 2024-03-02 00:36 ==
LOC: DI 00:16
PROVIDERS: PCP Midwife; Visit Provider Midwife
DX: Z34.82 Encounter for supervision of other normal pregnancy, second trimester (principal); Z3A.21 21 weeks gestation of pregnancy
CPT/HCPCS: 76805

== ENCOUNTER 2024-04-21 12:21 | Outpatient (REF) | payer MEDICAID, SELFPAY ==
--- OUTSIDE RECORDS SUMMARY | 2024-04-21 12:22 | XMS_ITS | Clinical Summary ---
Author Organization [facility] Address [address] [place] [address] Care Team Providers Care Journeyman Operator Assistant Name Role Phone Unavailable Primary Care Provider [...] - 19+ 3-dose series) 05/01 COVID-19 Vaccine (2023- season) 2023
--- OUTSIDE RECORDS SUMMARY | 2024-04-21 12:23 | XMS_ITS | Encounter Summary ---
Author Organization [facility] Address [address] [place] [address] Care Team Providers Care Telephone Advice Nurse Name Role Phone Unavailable Primary Care Provider Unavailabl e Encounter Details Date Type Department Care Team (Late st Contact Info) Description 08/24/2022 Lab Requisition [place] Pathology & Laboratory Medicine - [facility] [address] [place] [address] Outr Resulting Lab, Provider Social History Tobacco [...] & BLOOD GA S ORDERABLES Final Result [facility] [address] [place] [address] documented in this encounter Visit Diagnoses Not on filedocumented in this encounter
--- OUTSIDE RECORDS SUMMARY | 2024-04-21 12:23 | XMS_ITS | Encounter Summary ---
Author Organization [facility] [place] [address] Care Team Providers Care Header Up Name Role Phone Radu Gaona ND Primary Care Provider [phone] Reason for Visit * Reason Comments Skin Check Encounter Details Date Type Department Care Team (Late st Contact Info) Description 05/11/2019 8:45 AM EST Office Visit Dermatology at [address] [address] Ovi Renee MD [address] [place] [address], [facility] [place] [address] Nevus Social History Tobacco Use Types Packs/Day [...] unspecified documented in this encounter Care Teams Header Up Relationship Specialty Start Date End Date Radu Gaona ND [address] [place] [address] PCP - General Naturopathic Medicine 06/14/16 documented as of this encounter
--- OUTSIDE RECORDS SUMMARY | 2024-04-21 12:23 | XMS_ITS | Encounter Summary ---
Author Organization [facility] [place] [address] Care Team Providers Care Psychologist Private Practice Name Role Phone Radu Gaona ND Primary Care Provider [phone] Reason for Visit * Reason Comments Contact Lens Check Encounter Details Date Type Department Care Team (Latest Contact Info) Description 12/22/2020 2:20 PM EDT Office Visit Ophthalmology at [facility] [place] [address] Kayli Hendricks, OD Accommodative esotropia; Hyperopic astigmatism of both eyes [...] Hendricks, OD - 12/22/2020 2:20 PM EDT Genoveva Gonzalez is a 20 y.o. female who [...] Rx Brand Base Curve Diameter Sphere Cylinder [place] Right Acuvue Oasys Astigmatism 8.6 14.5 +4.00 [...] by Dr. Shoemaker * H/o patching OS 8233-5902 w/ excellent compliance * H/o bifocals until [...] eyes documented in this encounter Care Teams Psychologist Private Practice Relationship Specialty Start Date End Date Radu Gaona ND [address] [place] [address] PCP - General Naturopathic Medicine 06/14/16 documented as of this encounter
--- OUTSIDE RECORDS SUMMARY | 2024-04-21 12:23 | XMS_ITS | Encounter Summary ---
Author Organization [facility] Address [address] [place] [address] Care Team Providers Care Staple Side Laster Name Role Phone Unavailable Primary Care Provider Unavailabl e Encounter Details Date Type Department Care Team (Late st Contact Info) Description 06/01/2022 Lab Requisition [facility] Pathology & Laboratory [facility] - [facility] [address] [place] [address] Outr Resulting Lab, Provider Social History Tobacco [...] Anti-Thyroglobulin <15 <=60 U/mL 2022 9:06 EST [facility] Thyroperoxidase Ab 40 <=60 U/mL 2022 9:06 EST [facility] Blood VENOUS BLOOD / Unknown 06/01/2022 15:54 EST 06/01/2022 22:56 EST us Provider Outr Resulting Lab CHEMISTRY & BLOOD GA S ORDERABLES Final Result Performing Organization Address City/[facility]/ZIP Co de Phone Number [facility] [address] [place] [address] * RUBELLA IGG ANTIBODY (06/01/2022 15:54 EST) Rubella IgG Ab Positive See Note 06/02/2022 10:41 EST [facility] Comment:Positive for IgG ant ibodies to Rubella virus. Blood VENOUS BLOOD / Unknown 06/01/2022 15:54 EST 06/01/2022 22:56 EST us Provider Outr Resulting Lab CHEMISTRY & BLOOD GA S ORDERABLES Final Result Performing Organization Address [facility] Co de Phone Number [facility] [address] [place] [address] * SYPHILIS SEROLOGY (06/01/2022 15:54 EST) Syphilis Serology Negative Negative 06/02/2022 10:49 EST [facility] Blood VENOUS BLOOD / Unknown 06/01/2022 15:54 EST 06/01/2022 22:56 EST us Provider Outr Resulting Lab IMMUNOLOGY AND SEROL OGY ORDERABLES Final Result Performing Organization Address [facility] Co de Phone Number [facility] [address] [place] [address] * HEPATITIS B SURFACE ANTIGEN (06/01/2022 15:54 EST) Hep B Surface Ag Negative Negative 06/02/2022 9:25 EST [facility] Blood VENOUS BLOOD / Unknown 06/01/2022 15:54 EST 06/01/2022 22:56 EST us Provider Outr Resulting Lab CHEMISTRY & BLOOD GA S ORDERABLES Final Result Performing Organization Address City/[facility]/ZIP Co de Phone Number [facility] [address] [place] [address] documented in this encounter Visit Diagnoses Not on filedocumented in this encounter
--- OUTSIDE RECORDS SUMMARY | 2024-04-21 12:23 | XMS_ITS | Encounter Summary ---
Author Organization [facility] Address [address] [place] [address] Care Team Providers Care Food Handler Name Role Phone Unavailable Primary Care Provider Unavailabl e Encounter Details Date Type Department Care Team (Late st Contact Info) Description 06/30/2022 Lab Requisition [facility] Pathology & Laboratory Medicine - [address] [address] Outr Resulting Lab, Provider Social History Tobacco [...] 30 - 100 ng/mL 07/01/2022 9:38 EDT [facility] Comment: Vitamin D 25,OH Interpretive Ranges: Deficiency: ??<10.0 ng/mL Insufficiency: ??10.0 - 30.0 ng/mL Sufficiency: ??30.0 - 100.0 ng/mL Toxicity: ??>100.0 ng/mL Blood VENOUS BLOOD / Unknown 06/29/2022 15:00 EDT 06/30/2022 17:27 EDT us Provider Outr Resulting Lab CHEMISTRY & BLOOD GA S ORDERABLES Final Result [facility] [address] [place] [address] documented in this encounter Visit Diagnoses Not on filedocumented in this encounter
--- OUTSIDE RECORDS SUMMARY | 2024-04-21 12:23 | XMS_ITS | Encounter Summary ---
Author Organization [place] [address] Care Team Providers Care Morning News Producer Name Role Phone Radu Gaona ND Primary Care Provider Reason for Visit * Reason Comments Eye Exam Encounter Details Date Type Department Care Team (Latest Contact Info) Description 10/04/2019 7:20 AM EDT Office Visit Ophthalmology at [facility] [place] [address] Kayli Hendricks, OD Accommodative esotropia; Hypermetropia of both eyes Social [...] Rx Brand Base Curve Diameter Sphere Cylinder [place] Right Acuvue Oasys Astigmatism 8.6 14.5 +4.50 [...] by Dr. 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
--- OUTSIDE RECORDS SUMMARY | 2024-04-21 12:23 | XMS_ITS | Encounter Summary ---
Author Organization [facility] [place] [address] Care Team Providers Care Deposit Refund Clerk Name Role Phone Radu Gaona ND Primary Care Provider [phone] Reason for Visit * Reason Comments Eye Exam Encounter Details Date Type Department Care Team (Latest Contact Info) Description 12/18/2020 2:40 PM EDT Office Visit Ophthalmology at [facility] [place] [address] Kayli Hendricks, OD Accommodative esotropia; Hyperopic astigmatism of both eyes; [...] OD - 12/18/2020 2:40 PM EDT Genoveva Gonzalez is a 20 [...] by Dr. Shoemaker * H/o patching OS 4409-5700 w/ excellent compliance * H/o bifocals until 2014 (excellent control with SVL since then) * Improved visual acuity with less plus both eyes today * Almost equal acuity today, h/o amblyopia OD Plan: 1) CL recheck in 1-2 weeks. 2) Monitor. Follow-up: CL check in 1-2 weeks. 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
--- OUTSIDE RECORDS SUMMARY | 2024-04-21 12:23 | XMS_ITS | Encounter Summary ---
Author Organization [facility] Address [address] [place] [address] Care Team Providers Care Lab Systems Analyst Name Role Phone Unavailable Primary Care Provider Unavailabl e Encounter Details Date Type Department Care Team (Late st Contact Info) Description 06/30/2022 Lab Requisition [facility] Pathology & Laboratory Medicine - [facility] [address] [place] [address] Outr Resulting Lab, Provider Social History Tobacco [...] 8.4 See Note ng/mL 06/30/2022 18:25 EDT [facility] Comment: Reference Ranges [...] GA S ORDERABLES Final Result [facility] [address] [place] [address] documented in this encounter Visit Diagnoses Not on filedocumented in this encounter
--- OUTSIDE RECORDS SUMMARY | 2024-04-21 12:23 | XMS_ITS | Encounter Summary ---
Author Organization [facility] [place] [address] Care Team Providers Care Health And Fitness Instructor Name Role Phone Radu Gaona ND Primary Care Provider [phone] Encounter Details Date Type Department Care Team (Late st Contact Info) Description 01/04/2018 Telephone [place] [address] Elda Gomez MD [facility] [place] [address] Social History Tobacco Use Types Packs/Day Years [...] on filedocumented in this encounter Care Teams Health And Fitness Instructor Relationship Specialty Start Date End Date Radu Gaona ND [address] [place] [address] PCP - General Naturopathic Medicine 06/14/16 documented as of this encounter
--- OUTSIDE RECORDS SUMMARY | 2024-04-21 12:23 | XMS_ITS | Encounter Summary ---
Author Organization [facility] [place] [address] Care Team Providers Care Ultimate Hoops Scoreboard Operator Name Role Phone Radu Gaona ND Primary Care Provider [phone] Encounter Details Date Type Department Care Team (Late st Contact Info) Description 08/08/2019 Telephone [place] [address] Elda Gomez MD [facility] [place] [address] Social History Tobacco Use Types Packs/Day Years [...] on filedocumented in this encounter Care Teams Ultimate Hoops Scoreboard Operator Relationship Specialty Start Date End Date Radu Gaona ND [address] [place] [address] PCP - General Naturopathic Medicine 06/14/16 documented as of this encounter
--- OUTSIDE RECORDS SUMMARY | 2024-04-21 12:23 | XMS_ITS | Encounter Summary ---
Author Organization [facility] Address [facility] [place] [address] Care Team Providers Care Agency Sales Development Associate Name Role Phone Radu Gaona ND Primary Care Provider [phone] Reason for Visit * Reason Comments Strabismus Encounter Details Date Type Department Care Team (Latest Contact Info) Description 08/07/2018 1:30 PM EDT Office [facility] [place] [address] Elda Gomez MD [facility] [place] [address] Accommodative esotropia; Hypermetropia of both eyes Social [...] Hypermetropia documented in this encounter Care Teams Agency Sales Development Associate Relationship Specialty Start Date End Date Radu Gaona ND [address] [place] [address] PCP - General Naturopathic Medicine 06/14/16 documented as of this encounter
--- OUTSIDE RECORDS SUMMARY | 2024-04-21 12:23 | XMS_ITS | Encounter Summary ---
Author Organization [facility] [place] [address] Care Team Providers Care Excellence Consultant Name Role Phone Radu Gaona ND Primary Care Provider [phone] Encounter Details Date Type Department Care Team (Late st Contact Info) Description 07/25/2019 Telephone [place] [address] Kayli Hendricks, OD Social History Tobacco Use Types Packs/Day Years [...] on filedocumented in this encounter Care Teams Excellence Consultant Relationship Specialty Start Date End Date Radu Gaona ND [address] [place] [address] PCP - General Naturopathic Medicine 06/14/16 documented as of this encounter
--- OUTSIDE RECORDS SUMMARY | 2024-04-21 12:23 | XMS_ITS | Encounter Summary ---
Author Organization [facility] [place] [address] Care Team Providers Care Brush And Broom Clipper Name Role Phone Radu Gaona ND Primary Care Provider [phone] Reason for Visit * Reason Onset Date Comments Appointment 01/18/2018 Encounter Details Date Type Department Care Team (Late st Contact Info) Description 01/18/2018 Telephone [facility] [place] [address] Kayli Hendricks, OD Appointment Social History Tobacco Use Types Packs/Day [...] CL's located 4i under copier by Cristal. NATY pt. documented in this encounter Plan of Treatment Not on file documented as of this encounter Visit Diagnoses Not on filedocumented in this encounter Care Teams Brush And Broom Clipper Relationship Specialty Start Date End Date Radu Gaona ND [address] [place] [address] PCP - General Naturopathic Medicine 06/14/16 documented as of this encounter
--- OUTSIDE RECORDS SUMMARY | 2024-04-21 12:23 | XMS_ITS | Encounter Summary ---
Author Organization [facility] [place] [address] Care Team Providers Care Long Distance Billing Operator Name Role Phone Radu Gaona ND Primary Care Provider [phone] Reason for Visit * Reason Comments Contact Lens Training Encounter Details Date Type Department Care Team (Late st Contact Info) Description 02/02/2018 1:30 PM EDT Clinical [place] [address] Social History Tobacco Use Types Packs/Day Years Used Date Smoking Tobacco: Never Assessed Sex and Gender Information Value Date Recorded Sex Assigned at Not on file Gender Identity Not on file Sexual Orientation Not on file documented as of this encounter Plan of Treatment Not on file documented as of this encounter Visit Diagnoses Not on filedocumented in this encounter Care Teams Long Distance Billing Operator Relationship Specialty Start Date End Date Radu Gaona ND [address] [place] [address] PCP - General Naturopathic Medicine 06/14/16 documented as of this encounter
--- OUTSIDE RECORDS SUMMARY | 2024-04-21 12:23 | XMS_ITS | Encounter Summary ---
Author Organization [facility] [place] [address] Care Team Providers Care Certified Solid Waste Facility Operator Name Role Phone Radu Gaona ND Primary Care Provider [phone] Encounter Details Date Type Department Care Team (Late st Contact Info) Description 06/17/2020 [place] [address] Kayli Hendricks, OD Social History Tobacco Use [...] on filedocumented in this encounter Care Teams Certified Solid Waste Facility Operator Relationship Specialty Start Date End Date Radu Gaona ND [address] [place] [address] PCP - General Naturopathic Medicine 06/14/16 documented as of this encounter
--- OUTSIDE RECORDS SUMMARY | 2024-04-21 12:23 | XMS_ITS | Encounter Summary ---
Author Organization [facility] [place] [address] Care Team Providers Care Shuttle Spotter Name Role Phone Radu Gaona ND Primary Care Provider [phone] Reason for Visit * Reason Comments Contact Lens Training Encounter Details Date Type Department Care Team (Late st Contact Info) Description 02/20/2018 1:00 PM EST Clinical Support Ophthalmology at [facility] [place] [address] Social History Tobacco Use Types Packs/Day Years [...] on filedocumented in this encounter Care Teams Shuttle Spotter Relationship Specialty Start Date End Date Radu Gaona ND [address] [place] [address] PCP - General Naturopathic Medicine 06/14/16 documented as of this encounter
--- OUTSIDE RECORDS SUMMARY | 2024-04-21 12:23 | XMS_ITS | Encounter Summary ---
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
--- OUTSIDE RECORDS SUMMARY | 2024-04-21 12:23 | XMS_ITS | Encounter Summary ---
Author Organization Formerly [facility] [place] [address] Care Team Providers Care Marina Porter Name Role Phone Radu Gaona ND Primary Care Provider [phone] Reason for Visit * Reason Comments Contact Lens Check Encounter Details Date Type Department Care Team (Latest Contact Info) Description 02/27/2018 3:30 PM EST Office Visit Ophthalmology at [facility] [place] [address] Kayli Hendricks, OD Accommodative esotropia; Hypermetropia of [...] Rx Brand Base Curve Diameter Sphere Cylinder Cade Lens Right Acuvue Oasys Astigmatism 8.6 14.5 [...] lens wear till further notice from an eyeglass frames inspector. 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 Shoemaker * H/o patching OS 8154-9910 w/ excellent compliance * H/o bifocals until [...] Rx Brand Base Curve Diameter Sphere Cylinder Cade Lens Right Acuvue Oasys Astigmatism 8.6 14.5 [...] Hypermetropia documented in this encounter Care Teams Marina Porter Relationship Specialty Start Date End Date Radu Gaona ND [address] [place] [address] PCP - General Naturopathic Medicine 06/14/16 documented as of this encounter
--- OUTSIDE RECORDS SUMMARY | 2024-04-21 12:23 | XMS_ITS | Encounter Summary ---
Author Organization [facility] [place] [address] Care Team Providers Care Senior Marketing Coordinator Name Role Phone Radu Gaona ND Primary Care Provider [phone] Encounter Details Date Type Department Care Team (Late st Contact Info) Description 01/04/2018 Telephone [place] [address] Kayli Hendricks, OD Social History Tobacco Use [...] on filedocumented in this encounter Care Teams Senior Marketing Coordinator Relationship Specialty Start Date End Date Radu Gaona ND [address] [place] [address] PCP - General Naturopathic Medicine 06/14/16 documented as of this encounter
--- OUTSIDE RECORDS SUMMARY | 2024-04-21 12:23 | XMS_ITS | Encounter Summary ---
Author Organization [facility] [place] [address] Care Team Providers Care Forestry Faculty Member Name Role Phone Radu Gaona ND Primary Care Provider [phone] Encounter Details Date Type Department Care Team (Late st Contact Info) Description 12/02/2017 Telephone [place] [address] Elda Gomez MD [facility] [place] [address] Social History Tobacco Use Types Packs/Day Years [...] the usual. Please call her back at [phone]. Thanks documented in this encounter Plan of Treatment Not on file documented as of this encounter Visit Diagnoses Not on filedocumented in this encounter Care Teams Forestry Faculty Member Relationship Specialty Start Date End Date Radu Gaona ND [address] [place] [address] PCP - General Naturopathic Medicine 06/14/16 documented as of this encounter
--- OUTSIDE RECORDS SUMMARY | 2024-04-21 12:23 | XMS_ITS | Encounter Summary ---
Author Organization [facility] [place] [address] Care Team Providers Care Tank House Supervisor Name Role Phone Radu Gaona ND Primary Care Provider [phone] Reason for Visit * Reason Onset Date Comments Questions 01/04/2018 Encounter Details Date Type Department Care Team (Late st Contact Info) Description 01/04/2018 Telephone Ophthalmology at [facility] [place] [address] Kayli Hendricks, OD Questions Social History Tobacco Use Types Packs/Day [...] call the pt & mother at home [phone]. documented in this encounter Plan of Treatment Not on file documented as of this encounter Visit Diagnoses Not on filedocumented in this encounter Care Teams Tank House Supervisor Relationship Specialty Start Date End Date Radu Gaona ND [address] [place] [address] PCP - General Naturopathic Medicine 06/14/16 documented as of this encounter
--- OUTSIDE RECORDS SUMMARY | 2024-04-21 12:23 | XMS_ITS | Encounter Summary ---
Author Organization [facility] [place] [address] Care Team Providers Care Network Cabler Name Role Phone Radu Gaona ND Primary Care Provider [phone] Reason for Visit * Reason Comments Suture / Staple Removal Encounter Details Date Type Department Care Team (Late st Contact Info) Description 05/18/2019 10:30 AM EST Office Visit Dermatology at [address] [address] Ovi Renee MD [address] [facility] [place] [address] Visit for suture removal Social History Tobacco [...] sutures documented in this encounter Care Teams Network Cabler Relationship Specialty Start Date End Date Radu Gaona ND [address] [place] [address] PCP - General Naturopathic Medicine 06/14/16 documented as of this encounter
--- OUTSIDE RECORDS SUMMARY | 2024-04-21 12:23 | XMS_ITS | Encounter Summary ---
Author Organization [facility] [place] [address] Care Team Providers Care Boarder Steam Name Role Phone Radu Gaona ND Primary Care Provider [phone] Reason for Visit * Reason Comments Eye Exam Encounter Details Date Type Department Care Team (Latest Contact Info) Description 01/03/2018 3:30 PM EDT Office Visit Ophthalmology at [facility] [place] [address] Kayli Hendricks, OD Accommodative esotropia; Hypermetropia of [...] AC/A, s/p BMRc [address] Shoeamker * H/o patching OS 4344-9033 w/ excellent compliance * H/o bifocals until [...] Hypermetropia documented in this encounter Care Teams Boarder Steam Relationship Specialty Start Date End Date Radu Gaona ND [address] [place] [address] PCP - General Naturopathic Medicine 06/14/16 documented as of this encounter
--- OUTSIDE RECORDS SUMMARY | 2024-04-21 12:23 | XMS_ITS | Encounter Summary ---
Author Organization [facility] Address [address] [place] [address] Care Team Providers Care Actuarial Consultant Name Role Phone Unavailable Primary Care Provider Unavailabl e Encounter Details Date Type Department Care Team (Late st Contact Info) Description 08/24/2022 Lab Requisition [facility] Pathology & Laboratory Medicine - [facility] [address] [place] [address] Outr Resulting Lab, Provider Social History Tobacco [...] 211 - 911 pg/mL 08/24/2022 23:02 EDT [facility] Blood VENOUS BLOOD / Unknown 08/24/2022 16:05 EDT 08/24/2022 21:41 EDT us Provider Outr Resulting Lab CHEMISTRY & BLOOD GA S ORDERABLES Final Result [facility] [address] [place] [address] documented in this encounter Visit Diagnoses Not on filedocumented in this encounter
--- OUTSIDE RECORDS SUMMARY | 2024-04-21 12:23 | XMS_ITS | Encounter Summary ---
Author Organization [facility] Address [facility] [place] [address] Care Team Providers Care Composition Roll Maker And Cutter Name Role Phone Radu Gaona ND Primary Care Provider [phone] Reason for Visit * Reason Comments Strabismus Encounter Details Date Type Department Care Team (Latest Contact Info) Description 03/24/2020 9:30 AM EST Office Visit Ophthalmology at [facility] [place] [address] Elda Gomez MD [facility] [place] [address] Accommodative esotropia; Hyperopic astigmatism of both eyes [...] eyes documented in this encounter Care Teams Composition Roll Maker And Cutter Relationship Specialty Start Date End Date Radu Gaona ND [address] [place] [address] PCP - General Naturopathic Medicine 06/14/16 documented as of this encounter
--- OUTSIDE RECORDS SUMMARY | 2024-04-21 12:23 | XMS_ITS | Clinical Summary ---
Author Organization Formerly [facility] [place] [address] Care Team Providers Care Property Management Intern Name Role Phone Radu Gaona ND Primary Care Provider [phone] Allergies No known active allergies Medications No [...] - Influenza standard series) 12/04/2023 Care Teams Property Management Intern Relationship Specialty Start Date End Date Radu Gaona ND [address] [place], [place] [address] PCP - General Naturopathic Medicine 06/14/16
--- OUTSIDE RECORDS SUMMARY | 2024-04-21 12:23 | XMS_ITS | Encounter Summary ---
Author Organization [facility] Address [address] [place] [address] Care Team Providers Care Hand Tier Name Role Phone Unavailable Primary Care Provider Unavailabl e Encounter Details Date Type Department Care Team (Late st Contact Info) Description 08/24/2022 Lab Requisition [facility] Pathology & Laboratory Medicine - [facility] [address] [place] [address] Outr Resulting Lab, Provider Social History Tobacco [...] Cell Prep Negative Negative 08/25/2022 13:10 EDT [facility] Blood VENOUS BLOOD / Unknown 08/24/2022 16:05 EDT 08/24/2022 21:36 EDT us Provider Outr Resulting Lab HEMATOLOGY & PF4 ORD ERABLES Final Result [facility] [address] [place] [address] documented in this encounter Visit Diagnoses Not on filedocumented in this encounter
--- OUTSIDE RECORDS SUMMARY | 2024-04-21 12:23 | XMS_ITS | Encounter Summary ---
Author Organization [facility] [place] [address] Care Team Providers Care Carpet Loom Fixer Name Role Phone Radu Gaona ND Primary Care Provider [phone] Reason for Visit * Reason Onset Date Comments Other 12/01/2017 Requesting call back from Sintia Encounter Details Date Type Department Care Team (Late st Contact Info) Description 12/01/2017 Telephone [place] [address] Elda Gomez MD [facility] [place] [address] Other (Requesting call back from Sintia) Social [...] ? Author Type: Other Clinician Status: Signed Social Service Director: Pinky Iglesias [place] (Other Clinician) ?? Genoveva [...] on filedocumented in this encounter Care Teams Carpet Loom Fixer Relationship Specialty Start Date End Date Radu Gaona ND [address] [place] [address] PCP - General Naturopathic Medicine 06/14/16 documented as of this encounter
--- OUTSIDE RECORDS SUMMARY | 2024-04-21 12:23 | XMS_ITS | Referral Summary ---
Author Organization [facility] Address [address] [place] [address] Care Team Providers Care Furniture Repairer Name Role Phone Unavailable Primary Care Provider [...]
--- OUTSIDE RECORDS SUMMARY | 2024-04-21 12:23 | XMS_ITS | Encounter Summary ---
Author Organization [facility] Address [facility] [place] [address] Care Team Providers Care Game Tester Name Role Phone Radu Gaona ND Primary Care Provider Reason for Visit * Reason Comments Shortness of Breath Encounter Details Date Type Department Care Team (Late st Contact Info) Description 06/29/2018 3:52 PM EDT - 06/29/2018 4:56 PM EDT [place] [address] Yoselyn Landeros MD [facility] PEDIATRIC [place]ER[place]ENCY [place] [address] Anxiety; Panic attack Discharge Disposition: Home Social [...] through Care Everywhere. * Panic Attacks: Pediatric (Setswana) documented in this encounter ED Notes * [...] earlier when at a doctors office in [place]. She was in the waiting room when [...] with mom Carmen Dudley MD Resident 06/29/18 9927 documented in this encounter Plan of Treatment Not on file documented as of this encounter Visit Diagnoses Diagnosis Anxiety Anxiety state, unspecified Panic attack Panic disorder without agoraphobia documented in this encounter Care Teams Game Tester Relationship Specialty Start Date End Date Radu Gaona ND [address] [place] [address] PCP - General Naturopathic Medicine 06/14/16 documented as of this encounter
--- OUTSIDE RECORDS SUMMARY | 2024-04-21 12:23 | XMS_ITS | Encounter Summary ---
Author Organization [facility] Address [address] [place] [address] Care Team Providers Care Elevator Service Technician Name Role Phone Unavailable Primary Care Provider Unavailabl e Encounter Details Date Type Department Care Team (Late st Contact Info) Description 06/30/2022 Lab Requisition [facility] Pathology & Laboratory Medicine - [facility] [address] [place] [address] Outr Resulting Lab, Provider Social History Tobacco [...] 211 - 911 pg/mL 06/30/2022 18:31 EDT [facility] Blood VENOUS BLOOD / Unknown 06/29/2022 15:00 EDT 06/30/2022 17:27 EDT us Provider Outr Resulting Lab CHEMISTRY & BLOOD GA S ORDERABLES Final Result [facility] [address] [place] [address] documented in this encounter Visit Diagnoses Not on filedocumented in this encounter
--- OUTSIDE RECORDS SUMMARY | 2024-04-21 12:23 | XMS_ITS | Encounter Summary ---
Author Organization [facility] [place] [address] Care Team Providers Care Shoe Sewing Machine Operator And Tender Name Role Phone Radu Gaona ND Primary Care Provider [phone] Encounter Details Date Type Department Care Team (Late st Contact Info) Description 06/16/2020 Telephone [facility] [place] [address] Kayli Hendricks, OD Social History Tobacco Use [...] on filedocumented in this encounter Care Teams Shoe Sewing Machine Operator And Tender Relationship Specialty Start Date End Date Radu Gaona ND [address] [place] [address] PCP - General Naturopathic Medicine 06/14/16 documented as of this encounter
--- OUTSIDE RECORDS SUMMARY | 2024-04-21 12:24 | XMS_ITS | Encounter Summary ---
Author Organization [facility] [place] [address] Care Team Providers Care Car Shakeout Operator Name Role Phone Jacquelyn Pacheco MD Primary Care Provider [phone] Reason for Visit * Reason Comments Strabismus Orthoptic f/u, here with parents Encounter Details Date Type Department Care Team (Latest Contact Info) Description 07/17/2015 8:00 AM EDT Office Visit Ophthalmology at [facility] [place] [address] Pinky Iglesias CO Accommodative esotropia Social History [...] in this encounter Results * SENSORIMOTOR EXAM [[place] SPECIAL EYE EXAM] - OU- BOTH EYES (07/17/2015 11:49 AM EDT) Anatomical Region Laterality Modality Other Narrative 07/17/2015 11:49 AM EDT See orthoptic note Elda Gomez MD OPHTHALMOLOGY SERVIC ES ORDERABLES documented in this encounter Visit Diagnoses Diagnosis 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
--- OUTSIDE RECORDS SUMMARY | 2024-04-21 12:24 | XMS_ITS | Encounter Summary ---
Author Organization [facility] Address [facility] [place] [address] Care Team Providers Care Evaluation Specialist Name Role Phone Jacquelyn Pacheco MD Primary Care Provider [phone] Reason for Visit * Reason Comments Strabismus Here with parents an d younger brother Dae Encounter Details Date Type Department Care Team (Latest Contact Info) Description 01/08/2013 8:30 AM EDT Office [place] [address] Elda Ulloa MD [facility] [place] [address] Accommodative esotropia (Primary Dx); Hyperopia Discharge Disposition: [...] Hypermetropia documented in this encounter Care Teams Evaluation Specialist Relationship Specialty Start Date End Date Jacquelyn Pacheco MD [address] [place] [place] [address] PCP - General 07/15/10 06/13/16 documented as of this encounter
--- OUTSIDE RECORDS SUMMARY | 2024-04-21 12:24 | XMS_ITS | Encounter Summary ---
Author Organization [facility] Address [facility] [place] [address] Care Team Providers Care Laundry Manager Name Role Phone Jacquelyn Pacheco MD Primary Care Provider [phone] Reason for Visit * Reason Comments Strabismus here with guardian ( grandfather) Blurred Vision Encounter Details Date Type Department Care Team (Latest Contact Info) Description 01/13/2016 8:00 AM EDT Office [place] [address] Elda Ulloa MD [facility] [place] [address] Accommodative esotropia; Hyperopia, bilateral Social History Tobacco [...] bilateral documented in this encounter Care Teams Laundry Manager Relationship Specialty Start Date End Date Jacquelyn Pacheco MD [address] [place] [address] PCP - General 07/15/10 06/13/16 documented as of this encounter
--- OUTSIDE RECORDS SUMMARY | 2024-04-21 12:24 | XMS_ITS | Encounter Summary ---
Author Organization [facility] Address [facility] [place] [address] Care Team Providers Care Coil Machine Supervisor Name Role Phone Jacquelyn Pacheco MD Primary Care Provider [phone] Reason for Visit * Reason Comments Eye Problem ~9 month check, acco modative ET. Encounter Details Date Type Department Care Team (Latest Contact Info) Description 01/31/2012 11:15 AM EDT Office [place] [address] Elda Ulloa MD [facility] [address] [place] [address] Accommodative esotropia (Primary Dx); Hyperopia; Amblyopia Discharge [...] unspecified documented in this encounter Care Teams Coil Machine Supervisor Relationship Specialty Start Date End Date Jacquelyn Pacheco MD [address] [place] [address] PCP - General 07/15/10 06/13/16 documented as of this encounter
--- OUTSIDE RECORDS SUMMARY | 2024-04-21 12:24 | XMS_ITS | Encounter Summary ---
Author Organization [facility] [place] [address] Care Team Providers Care Assembler Adjuster Name Role Phone Jacquelyn Pacheco MD Primary Care Provider Reason for Visit * Reason Comments Strabismus Here with parents an d younger brother Dae Amblyopia Encounter Details Date Type Department Care Team (Latest Contact Info) Description 07/17/2012 1:00 PM EDT Office Visit Ophthalmology at [facility] [place] [address] Pinky Iglesias [place] Accommodative component in esotropia [...] Genoveva is a 12 year female s/p [facility] 09-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
--- OUTSIDE RECORDS SUMMARY | 2024-04-21 12:24 | XMS_ITS | Encounter Summary ---
Author Organization [facility] [place] [address] Care Team Providers Care Facility Operations Manager Name Role Phone Radu Gaona ND Primary Care Provider [phone] Encounter Details Date Type Department Care Team (Latest Contact Info) Description 06/14/2016 1:00 PM EDT Office [place] [address] Pinky Iglesias [place] Accommodative esotropia Social History [...] in this encounter Results * SENSORIMOTOR EXAM [RI SPECIAL EYE EXAM] - OU- BOTH EYES (06/14/2016 2:53 PM EDT) Anatomical Region Laterality Modality Other Narrative 06/14/2016 2:53 PM EDT See orthoptic note Elda Gomez MD OPHTHALMOLOGY SERVIC ES ORDERABLES documented in this encounter Visit Diagnoses Diagnosis 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
--- OUTSIDE RECORDS SUMMARY | 2024-04-21 12:24 | XMS_ITS | Encounter Summary ---
Author Organization [facility] Address [facility] [place] [address] Care Team Providers Care Director Of Volunteer Services Name Role Phone Jacquelyn Pacheco MD Primary Care Provider [phone] Reason for Visit * Reason Comments Strabismus Patching OS 4 hours daily. Encounter Details Date Type Department Care Team (Latest Contact Info) Description 04/26/2011 1:45 PM EST Office [place] [address] Elda Ulloa MD [facility] [place] [address] Accommodative esotropia (Primary Dx); Amblyopia Discharge Disposition: [...] concern: When covering Left eye, OD seems him tech, when covering right eye, OS seems darker. [...] unspecified documented in this encounter Care Teams Director Of Volunteer Services Relationship Specialty Start Date End Date Jacquelyn Pacheco MD [address] [place] [address] PCP - General 07/15/10 06/13/16 documented as of this encounter
--- OUTSIDE RECORDS SUMMARY | 2024-04-21 12:24 | XMS_ITS | Encounter Summary ---
Author Organization [facility] [place] [address] Care Team Providers Care Marine Underwriter Name Role Phone Jacquelyn Pacheco MD Primary Care Provider [phone] Reason for Visit * Reason Onset Date Comments Other 12/25/2015 Pt's guardian alaniz s questions for BS about her glasses. She would like Pinky to call her back as soon as possible. Encounter Details Date Type Department Care Team (Late st Contact Info) Description 12/25/2015 Telephone [place] [address] Pinky Iglesias [place] Other (Pt's [...] on filedocumented in this encounter Care Teams Marine Underwriter Relationship Specialty Start Date End Date Jacquelyn Pacheco MD [address] [place] [address] [place] [address] PCP - General 07/15/10 06/13/16 documented as of this encounter
--- OUTSIDE RECORDS SUMMARY | 2024-04-21 12:24 | XMS_ITS | Encounter Summary ---
Author Organization [facility] [place] [address] Care Team Providers Care Milk Handler Name Role Phone Jacquelyn Pacheco MD Primary Care Provider [phone] Reason for Visit * Reason Comments Strabismus 3 month Orthoptic f/ u with new glasses and patching therapy Encounter Details Date Type Department Care Team (Late st Contact Info) Description 01/04/2011 9:00 AM EDT Office [place] [address] Pinky Iglesias [place] Amblyopia of right eye [...] 9:00 AM EDT >> REBECA AVILES OR [facility] Jan 04, 2011 9:51 AM Description:Patient [...] unspecified documented in this encounter Care Teams Milk Handler Relationship Specialty Start Date End Date Jacquelyn Pacheco MD [address] [place] [address] PCP - General 07/15/10 06/13/16 documented as of this encounter
--- OUTSIDE RECORDS SUMMARY | 2024-04-21 12:24 | XMS_ITS | Encounter Summary ---
Author Organization [facility] Address [facility] [place] [address] Care Team Providers Care Machine Sander Name Role Phone Jacquelyn Pacheco MD Primary Care Provider [phone] Reason for Visit * Reason Comments Strabismus here to transfer of care due to insurance not accepted at Dr. Jerica Shoemaker's office Encounter Details Date Type Department Care Team (Latest Contact Info) Description 10/12/2010 8:45 AM EDT Office [place] [address] Elda Ulloa MD [facility] [place] [address] Accommodative esotropia (Primary Dx); Hyperopia; Amblyopia Discharge [...] 0.5 OU given (+5.50 +0.50x85 OD; +4.50 +1.80b780 OS; +2.75 add OU). -Patch OS 4hour/day [...] unspecified documented in this encounter Care Teams Machine Sander Relationship Specialty Start Date End Date Jacquelyn Pacheco MD [address] [place] [address] [place] [address] PCP - General 07/15/10 06/13/16 documented as of this encounter
--- OUTSIDE RECORDS SUMMARY | 2024-04-21 12:24 | XMS_ITS | Encounter Summary ---
Author Organization [facility] Address [facility] [place] [address] Care Team Providers Care Core Stripper Name Role Phone Jacquelyn Pacheco MD Primary Care Provider Reason for Visit * Reason Comments Strabismus Encounter Details Date Type Department Care Team (Latest Contact Info) Description 10/28/2014 2:45 PM EDT Office Visit Ophthalmology at [facility] [place] [address] lEda Ulloa MD [facility] [place] [address] Accommodative esotropia; Hyperopia, bilateral Discharge Disposition: Home [...] bilateral documented in this encounter Care Teams Core Stripper Relationship Specialty Start Date End Date Jacquelyn Pacheco MD [address] [place] [address] PCP - General 07/15/10 06/13/16 documented as of this encounter
[2024-04-21 15:36] LABS: HCT 35.5 % (36.0-46.0); HGB 11.3 g/dL (11.2-15.7); MCH 27.6 pg (27.0-33.0); MCHC 31.8 % (32.0-36.0); MCV 87 fL (80-95); MPV 12.4 fL (8.0-11.0); Platelet Count 198 10^3/uL (130-400); RBC 4.09 10^6/uL (3.93-5.22); RDW 13.2 % (11.7-14.6); RDW-SD 41.1 fL; WBC 9.01 10^3/uL (4.4-10.8)
[2024-04-21 15:46] LABS: Glucose 131 mg/dL (74-106)
== END 2024-04-21 12:22 | disposition home or self-care (01) ==
LOC: LBN 12:21
PROVIDERS: PCP Midwife; Visit Provider Midwife
DX: Z34.83 Encounter for supervision of other normal pregnancy, third trimester
CPT/HCPCS: 82947; 82950; 85027

== ENCOUNTER 2024-06-04 17:05 | Outpatient (CLI) | payer MEDICAID, SELFPAY ==
[2024-06-04 17:14] VITALS: BP 123/75; PULSE 110
--- NOTE | 2024-06-05 08:48 | W.OBNST ---
Date of service: 06/04/24 Time of Service: 15:00 NST Evaluation Reason for NST Reasons for Nonstress Test: LABOR Reason for NST Other: Rule out PPROM Gestational Age Gestational Age in Weeks and Days: 34 Weeks and 0Days Test and Monitor Explained Test/Monitor Explained: Test Explained, Monitor Explained and Patient Verbalized Understanding Vital Signs Blood Pressure: 123/75 Pulse: 110 Urine Results Urine Protein: Negative Urine Ketones: Negative Urine Glucose: Negative Urine Blood: Negative NST Information Time on Monitor: 16:53 Date off Monitor: 06/04/24 Time off Monitor: 17:44 NST Interventions: PO Hydration Contraction Frequency: None Comments: no uterine contractions NST Evaluation Patient States Movement: Present FHR Baseline: 135 Variability: Moderate 6-25 bpm Accelerations: 15x15 Decelerations: None NST Results: Reactive Note Ultrasound Done: N/A. NST Note Note: ROM and PTL ruled out via sterile speculum exam. negative nitrizine and pooling., ROM plus pending. Discharged home in stable condition. Home glazier metal furniture Dayana Felder updated. NST Reviewed and Verified by: Mimi Grant
[2024-06-05 08:50] VITALS: BP 123/75; PULSE 110
== END 2024-06-04 17:50 ==
LOC: BCD 17:07 → OBS 17:11
PROVIDERS: PCP Midwife; Visit Provider Advanced Practice Midwife
DX: O47.03 False labor before 37 completed weeks of gestation, third trimester (principal); Z3A.34 34 weeks gestation of pregnancy
CPT/HCPCS: 59025; 84112

== ENCOUNTER 2025-01-16 00:04 | Outpatient (CLI) | payer MEDICAID, SELFPAY ==
[2025-01-16 16:57] LABS: Abs Immature Grans 0.02 10^3/uL (0.0-0.06); HCT 38.9 % (36.0-46.0); HGB 12.4 g/dL (11.2-15.7); Immature Grans % 0.2 %; MCH 26.6 pg (27.0-33.0); MCHC 31.9 % (32.0-36.0); MCV 84 fL (80-95); MPV 11.0 fL (8.0-11.0); Platelet Count 232 10^3/uL (130-400); RBC 4.66 10^6/uL (3.93-5.22); RDW 13.3 % (11.7-14.6); RDW-SD 40.7 fL; WBC 9.04 10^3/uL (4.4-10.8)
[2025-01-16 17:11] LABS: Hemoglobin A1C 5.5 % (<5.7)
[2025-01-16 17:53] LABS: Iron 47 ug/dL (50-170)
[2025-01-16 18:18] LABS: ALT 29 U/L (14-59); AST 11 U/L (15-37); Albumin 4.0 g/dL (3.4-5.0); Alkaline Phosphatase 84 U/L (46-116); Anion Gap 11.0 mmol/L (3-11); BUN 16 mg/dL (7-18); Bilirubin, Total 0.3 mg/dL (0.2-1.0); CO2 25.0 mmol/L (21.0-32.0); Calcium 8.6 mg/dL (8.5-10.1); Calculated LDL 102 mg/dL (<100); Chloride 103 mmol/L (98-107); Cholesterol 192 mg/dL (<200); Estimated GFR 106.77 (mL/min/1.73m2); Ferritin 50 ng/mL (8-252); Glucose 86 mg/dL (74-106); HDL Cholesterol 79 mg/dL (>or=50); Potassium 4.2 mmol/L (3.5-5.1); Sodium 139 mmol/L (136-145); TSH 0.81 uIU/mL (0.36-3.74); Total Protein 7.1 g/dL (6.4-8.2); Triglyceride 58 mg/dL (<150); Vitamin D 25 Total 24 ng/mL (30-100)
[2025-01-17 17:19] LABS: T3,Free 3.8 pg/mL (2.8-5.3)
== END 2025-01-16 00:05 | disposition home or self-care (01) ==
PROVIDERS: PCP Midwife; Visit Provider Naturopath
DX: G43.009 Migraine without aura, not intractable, without status migrainosus (principal); E55.9 Vitamin D deficiency, unspecified; D50.9 Iron deficiency anemia, unspecified; R42 Dizziness and giddiness; R06.09 Other forms of dyspnea; R35.0 Frequency of micturition; R53.83 Other fatigue; E07.9 Disorder of thyroid, unspecified; Z13.220 Encounter for screening for lipoid disorders; Z13.1 Encounter for screening for diabetes mellitus
CPT/HCPCS: 36415; 80053; 80061; 82306; 81003; 82728; 83036; 83540; 84439; 84443; 84481; 85025